=== PATIENT | male | born 1940 | race Caucasian/White ===

== ENCOUNTER 2017-02-22 04:50 | Inpatient (IN) | payer OTHER ==
[~2017-02-22] VITALS: Ht 162.6 cm; Wt 86.4 kg
[~2017-02-22 04:50] MED LIST: CYCLOBENZAPRINE10 M1 PO; HYDRODIURIL 112.5 M1 PO; PERCOCET 5-3251 EACH PO; PROAIR HFA0.09 MG/Ac PO
--- NOTE | 2017-02-22 05:04 | NUR ---
PT TO ED FOR SUDDEN ONSET CHEST PAIN THAT WOKE HIM FROM SLEEP AT 0130. CP IS MIDSTERNAL, NON-RADIATING "IT WAS VERY TIGHT AND HARD TO BREATHE BUT I HAVE COPD." PT TOOK 325 ASA WHEN PAIN WOKE HIM FROM SLEEP. PT DENIES PAIN AT THIS TIME AND "ITS ALWAYS HARD TO BREATHE BECAUSE OF COPD." PT REPORTS HE HAS HAD EPISODES OF PAIN LIKE THIS FOR 3 DAYS IN A ROW.
--- NOTE | 2017-02-22 05:12 | NUR ---
EKG DONE BY STEVE COOPER, AND SHOWN TO DR. SAUCEDO.
--- NOTE | 2017-02-22 05:18 | ED CARDIAC/CP/PALPITATIONS ---
See Addendum History of Present Illness General Chief Complaint: Chest Pain Stated Complaint: CHEST PAIN Source: patient, family Exam Limitations: no limitations Vital Signs & Intake/Output Vital Signs & Intake/Output Vital Signs Date Time Temp Pulse Resp B/P Pulse O2 O2 Flow FiO2 Ox Delivery Rate 02/22 0707 74 142/93 02/22 0656 84 16 142/93 93 Room Air 02/22 0515 Room Air 02/22 0507 97.2 90 22 139/98 96 Room Air Allergies Coded Allergies: No Known Allergies (02/22/17) Reconcile Medications Albuterol Sulfate (Proair Hfa) 0.09 MG/Actuation KILO 0.9 PO PRN PRN SOB ( Reported) Cyclobenzaprine HCl 10 MG TABLET 1 TAB PO TID PRN muscle spasm Hydrochlorothiazide (Hydrodiuril 12.5 MG Tab) 12.5 MG CAPSULE 12.5 MG PO DAILY HYPERTENSION (Reported) Oxycodone HCl/Acetaminophen (Percocet 5-325 MG Tablet) 1 EACH TABLET 1 TAB PO TID PRN pain ten tabs...[id number] Triage Note: PT TO ED FOR SUDDEN ONSET CHEST PAIN THAT WOKE HIM FROM SLEEP AT 0130. CP IS MIDSTERNAL, NON-RADIATING "IT WAS VERY TIGHT AND HARD TO BREATHE BUT I HAVE COPD." PT TOOK 325 ASA WHEN PAIN WOKE HIM FROM SLEEP. PT DENIES PAIN AT THIS TIME AND "ITS ALWAYS HARD TO BREATHE BECAUSE OF COPD." PT REPORTS HE HAS HAD EPISODES OF PAIN LIKE THIS FOR 3 DAYS IN A ROW. Triage Nurses Notes Reviewed? yes Onset: Gradual Duration: day(s):, waxing and waning Timing: recent history Quality/Severity: moderate Location: central Radiation: shoulders Activities at Onset: none Prior Chest Pain/Card Workup: no prior chest pain Modifying Factors: Improves With: rest. Associated Symptoms: diaphoresis, dizziness HPI: 77yo gentleman with a history of COPD, presents with 3 day history of intermittent chest pain. He states that the pain would be a 7 or 8 out of 10. The episodes would last for several minutes and radiate down both of his arms. The chest pain is associated with diaphoresis and mild dizziness. He had these episodes on and Friday. And then, this morning he had the episode again and felt, "the pain was so bad, I needed to get it checked out." He notes that he presently has no chest pain, shortness of breath nausea vomiting diarrhea wheezing fever or chills. Past History Travel History Traveled to [place] past 21 day No Medical History Any Pertinent Medical History? see below for history Neurological: NONE EENT: NONE Cardiovascular: hypertension Respiratory: COPD Gastrointestinal: NONE Hepatic: NONE Renal: NONE Musculoskeletal: NONE Psychiatric: NONE Endocrine: NONE Blood Disorders: NONE Cancer(s): NONE Surgical History Surgical History: none Psychosocial History What is your primary language [place] Tobacco Use: Current Daily Use Daily Tobacco Use Amount/Type: => 5 Cigarettes daily ETOH Use: denies use Illicit Drug Use: denies illicit drug use Family History Hx Contributory? No Review of Systems Review of Systems Constitutional: Reports: no symptoms. EENTM: Reports: no symptoms. Respiratory: Reports: no symptoms. Cardiovascular: Reports: no symptoms. GI: Reports: no symptoms. Genitourinary: Reports: no symptoms. Musculoskeletal: Reports: no symptoms. Skin: Reports: no symptoms. Neurological/Psychological: Reports: no symptoms. Hematologic/Endocrine: Reports: no symptoms. Immunologic/Allergic: Reports: no symptoms. All Other Systems: Reviewed and Negative Physical Exam Physical Exam General Appearance: well developed/nourished, mild distress Head: atraumatic, normal appearance Eyes: Bilateral: normal appearance. Ears, Nose, Throat: normal pharynx, normal ENT inspection Neck: normal inspection, supple, full range of motion Respiratory: normal breath sounds, chest non-tender, no respiratory distress, quiet respiration, lungs clear Cardiovascular: regular rate/rhythm Gastrointestinal: normal bowel sounds, soft, non-tender, no organomegaly Back: normal inspection, normal range of motion Extremities: normal inspection Neurologic/Psych: no motor/sensory deficits, awake, alert, oriented x 3 Skin: intact, normal color, warm/dry Core Measures ACS in differential dx? No Severe Sepsis Present: No Septic Shock Present: No Progress Differential Diagnosis: AMI Plan of Care: Orders Procedure Date/time Status PARTIAL THROMBOPLASTIN TIME 02/22 1309 Active Patient Data 02/22 0703 Active Admit to inpatient 02/22 07 Active Add-on Test (ER Only) 02/22 0523 Active EKG 02/22 0521 Active D-DIMER 02/22 05 Complete TROPONIN LEVEL 02/22 0454 Complete PARTIAL THROMBOPLASTIN TIME 04/08 0454 Complete PROTHROMBIN TIME 02/22 454 Complete COMPREHENSIVE METABOLIC PANEL 02/22 454 Complete CBC WITHOUT DIFFERENTIAL 02/22 454 Complete B-TYPE NATRIURETIC PEP (BNP) 02/22 454 Complete EKG 02/22 451 Active Laboratory Tests 02/22/17 0511: Anion Gap 12, Estimated GFR > 60, BUN/Creatinine Ratio 22.7, Glucose 233 H, Calcium 10.0, Total Bilirubin 0.4, AST 18, ALT 33, Alkaline Phosphatase 108, Troponin I 0.43 *H, Ars-F-Zntqoygcpic Pept 1700 H, Total Protein 6.7, Albumin 3.9, Globulin 2.8, Albumin/Globulin Ratio 1.4, PT 10.6, INR 1.01, APTT 32, D- Dimer 279 H, CBC w Diff NO MAN DIFF REQ, RBC 5.50, MCV 91.4, MCH 30.6, RDW 15.0 H, MPV 9.0, Gran % 74.4, Lymphocytes % 15.2 L, Monocytes % 8.2, Eosinophils % 1.8, Basophils % 0.4, Absolute Granulocytes 10.2 H, Absolute Lymphocytes 2.1, Absolute Monocytes 1.1 H, Absolute Eosinophils 0.3, Absolute Basophils 0.1, PUBS MCHC 33.5 Diagnostic Imaging: Viewed by Me: Radiology Read. Discussed w/RAD: Radiology Read. CXR Impression: no acute abnormality, no infiltrates, normal size heart, normal mediastinum Initial ED EKG: ST SEG DEPRESSIONS in lateral leads Comments: PATIENT: CHILANGO PEÑALOZA PRESENT AGE: 77 PATIENT ACCOUNT NO: [id number] : 41 LOCATION: [facility] ORDERING PHYSICIAN: ISMAEL SAUCEDO MD SERVICE DATE: 02/22/17 EXAM TYPE: RAD - XRY-PORTABLE CHEST XRAY EXAMINATION: XR PORTABLE CHEST CLINICAL INFORMATION: Chest pain COMPARISON: Chest x-ray 03/18/2014 TECHNIQUE: Portable AP portable view of the chest was obtained. 5:29 AM FINDINGS: No significant abnormality is noted involving the heart, lungs, mediastinum, bony thorax or soft tissues. IMPRESSION: No acute abnormality of the chest. DICTATED BY: PAPO GARZON MD DATE/TIME DICTATED:02/22/17603 UNDERWEAR FINISHER:SISI DATE/TIME TRANSCRIBED:04/08/17 / 0604 CONFIDENTIAL, DO NOT COPY WITHOUT APPROPRIATE AUTHORIZATION. <Electronically signed in Other Vendor System> SIGNED BY: PAPO GARZON MD 02/22/17 0608 Departure Departure Disposition: HOME OR SELF CARE Condition: Stable Clinical Impression Primary Impression: Chest pain Referrals: ZENON LEON,LYSSA Gomez (PCP/Family) Departure Forms: Customer Survey General Discharge Information Admission Note Spoke With: DEBBI LEON,REJI Documentation of Exam: Documentation of any treatments & extenuating circumstances including Concerns Regarding Discharge (functional status, medication knowledge or non-compliance, living conditions, etc.) that warrant an admission rather than observation: pt with positive troponin, slight st seg depressions in lateral leads. He has been chest pain free throughout ED stay... pt merits heparin gtt, aspirin, bblockers, and icu admission. Dr. Layne to consult. Critical Care Note Critical Care Note Critical Care Time: non-applicable
[2017-02-22 05:36] LABS: ABSOLUTE BASOPHIL COUNT 0.1 /CUMM (0.0-0.2); ABSOLUTE EOSINOPHIL COUNT 0.3 /CUMM (0.0-0.7); ABSOLUTE GRANULOCYTE CT 10.2 /CUMM (1.4-6.5); ABSOLUTE LYMPH COUNT 2.1 /CUMM (1.2-3.4); ABSOLUTE MONOCYTE COUNT 1.1 /CUMM (0.10-0.60); BASOPHIL % 0.4 % (0.0-2.0); EOSINOPHIL % 1.8 % (0-5); GRANULOCYTE % 74.4 % (42.2-75.2); HEMATOCRIT 50.3 % (42-52); MEAN CORPUSCULAR HGB 30.6 PG (27.0-31.0); MEAN CORPUSCULAR HGB CONC 33.5 G/DL (33.0-37.0); MEAN CORPUSCULAR VOLUME 91.4 FL (80.0-94.0); PLATELET COUNT 258 /CUMM (130-400); WHITE BLOOD CELL COUNT 13.6 /CUMM (4.8-10.8)
--- NOTE | 2017-02-22 05:42 | NUR ---
PT MEDICATED WITH ASPIRIN PER EMAR.
[2017-02-22 05:59] LABS: PT 10.6 SEC (9.4-12.5); PTT 32 SEC (25-37)
--- NOTE | 2017-02-22 06:08 | RADIOLOGY REPORT ---
EXAMINATION: XR PORTABLE CHEST CLINICAL INFORMATION: Chest pain COMPARISON: Chest x-ray 03/18/2014 TECHNIQUE: Portable AP portable view of the chest was obtained. 5:29 AM FINDINGS: No significant abnormality is noted involving the heart, lungs, mediastinum, bony thorax or soft tissues. IMPRESSION: No acute abnormality of the chest.
--- NOTE | 2017-02-22 06:12 | NUR ---
CRITICAL TEST RESULTS [id number] CHILANGO PEÑALOZA 77 M TESTS AND RESULTS: TROPONIN 0.43 Results received and read back by: JERRY FERRARO Results received date and time: 02/22/17 0612 The following provider was notified of the results, and read the results back: MD SAUCEDO Notified date and time: 02/22/17 at 0612
--- NOTE | 2017-02-22 07:07 | History & Physical ---
TOMMY LEON,[facility] 02/22/17 0707: General Information and HPI MD Statement: I have seen and personally examined CHILANGO PEÑALOZA and documented this H&P. The patient is a 77 year old M who presented with a patient stated chief complaint of [chest pain]. Source of Information: patient Exam Limitations: no limitations History of Present Illness: Patient is a 77 year old male with PMH on COPD (not on home O2), HTN, GERD, who came to the ED due to 3 episodes of chest pain since last . On patient started to feel chest tightness in the middle on the chest when he was carrying some garbage outside the house, he also felt he could not breathe. pain was 7/10 dull in nature and lasted for half an hour; it went away by itself. Yesterday after on the patient had another episode of a similar chest pressure in the middle, this time at rest, again dull in nature and resolved by itself. Lastly, the patient woke up from sleep at around 1 am to go to the bathroom and on his way he experienced midsternal chest tightness with SOB, 6/10 with radiation to both arm, he took one aspirin and decided to come to the hospital. this episode lasted 2-3 hours till 4:30 that he arrived to the ED. He has not experienced any pain since then. Denies similar symptoms or any heart attacks in the past, denies diaphoresis, dizziness, LOC. reports SOB at baseline but not worse with chest pain. reports chronic headache since childhood. denies leg swelling. denies fever chills, reports chronic coughs with phlegm, smokes 1-2 packs/day for 60 years. He follows up regularly with PCP (last time this past Friday for check up). Also follows with Dr. Rene for COPD, but no cardiology. Last ECHO was done >30 years ago after he had an episode of a blackout. Allergies/Medications Allergies: Coded Allergies: No Known Allergies (02/22/17) Past History Travel History Traveled to [place] past 21 day No Medical History Neurological: NONE EENT: NONE Cardiovascular: hypertension Respiratory: COPD Gastrointestinal: GERD Hepatic: NONE Renal: NONE Musculoskeletal: NONE Psychiatric: NONE Endocrine: NONE Blood Disorders: NONE Cancer(s): NONE Surgical History Surgical History: none Past Family/Social History Family History Relations & Conditions if any Relation not specified for: Unknown family medical history Psychosocial History Smoking Status: Current Some Day Smoker (1-2 packs/day for 60 years) ETOH Use: denies use Illicit Drug Use: denies illicit drug use Functional Ability Ambulation: independent Review of Systems Review of Systems Constitutional: Denies: chills, fever, malaise, weakness, unexplained weight loss. EENTM: Reports: no symptoms. Cardiovascular: Reports: chest pain (currently pain free). Denies: edema, palpitations, peripheral edema, syncope. Respiratory: Reports: cough, short of breath. Denies: hemoptysis, orthopnea, sputum production, stridor, wheezing. GI: Reports: no symptoms. Genitourinary: Reports: no symptoms. Musculoskeletal: Reports: no symptoms. Skin: Reports: no symptoms. Neurological/Psychological: Reports: no symptoms. Exam & Diagnostic Data Last 24 Hrs of Vital Signs/I&O Vital Signs Date Time Temp Pulse Resp B/P Pulse O2 O2 Flow FiO2 Ox Delivery Rate 02/22 0830 98.1 74 20 130/90 96 Room Air Room Air 02/22 0805 97.1 77 18 154/89 93 Room Air 02/22 0707 74 142/93 02/22 0656 84 16 142/93 93 Room Air 02/22 0515 Room Air 02/22 0507 97.2 90 22 139/98 96 Room Air Intake & Output 02/22 1600 02/22 0800 02/22 0000 Intake Total Output Total 500 Balance -500 Output, Urine 500 Patient 87.997 kg Weight Physical Exam General Appearance Alert, Oriented X3, Cooperative, No Acute Distress Skin No Significant Lesion HEENT Atraumatic, EOMI, Mucous Membr. moist/pink Neck Supple, No JVD Cardiovascular Regular Rate, Normal S1, Normal S2, No Murmurs Lungs Normal Air Movement, rhonchi bilateral upper lungs, decreased breath sounds in both lower lungs Abdomen Soft, No Tenderness Neurological Normal Speech, Normal Tone Extremities 1+ b/l pitting edema Vascular Pulses Symmetrical Last 24 Hrs of Labs/[place]: Laboratory Tests 02/22/17 0511: Anion Gap 12, Estimated GFR > 60, BUN/Creatinine Ratio 22.7, Glucose 233 H, Calcium 10.0, Total Bilirubin 0.4, AST 18, ALT 33, Alkaline Phosphatase 108, Troponin I 0.43 *H, Flv-M-Yvruhkflbij Pept 1700 H, Total Protein 6.7, Albumin 3.9, Globulin 2.8, Albumin/Globulin Ratio 1.4, PT 10.6, INR 1.01, APTT 32, D- Dimer 279 H, CBC w Diff NO MAN DIFF REQ, RBC 5.50, MCV 91.4, MCH 30.6, RDW 15.0 H, MPV 9.0, Gran % 74.4, Lymphocytes % 15.2 L, Monocytes % 8.2, Eosinophils % 1.8, Basophils % 0.4, Absolute Granulocytes 10.2 H, Absolute Lymphocytes 2.1, Absolute Monocytes 1.1 H, Absolute Eosinophils 0.3, Absolute Basophils 0.1, PUBS MCHC 33.5 Microbiology 02/22 814 UPPER RESP: Surveillance Culture - ORD 02/22 814 GI: Surveillance Culture - ORD Diagnostic Data EKG Results EKG: normal sinus rhythm, rate of 82, SC interval 192, Qtc 472, there is ST segment depressions in inf and lateral leads (II, III, AVF, V3, V4) CXR Results SERVICE DATE: 02/22/17 EXAM TYPE: RAD - XRY-PORTABLE CHEST XRAY EXAMINATION: XR PORTABLE CHEST CLINICAL INFORMATION: Chest pain COMPARISON: Chest x-ray 03/18/2014 TECHNIQUE: Portable AP portable view of the chest was obtained. 5:29 AM FINDINGS: No significant abnormality is noted involving the heart, lungs, mediastinum, bony thorax or soft tissues. IMPRESSION: No acute abnormality of the chest. Assessment/Plan Assessment: Patient is a 77 year old male with PMH on COPD (not on home O2), HTN, GERD, who came to the ED due to 3 episodes of chest pain since last . Patient is found to have elevated troponin on 0.43 and EKG changes consisting of ST depressions in inf and lateral leads (II, III, AVF, V3, V4), he also has proBNP elevated to 1700 and D-dimer of 279. CXR unremarkable, saturating in RA, not in SOB. Patient is admitted to the ICU due to the acute EKG changes and elevated troponin and is started on IV heparin. Problem list and plan: NSTEMI 3 episodes of angina, at rest or on exertion, with elevated troponin and ST depression ProBNP elevated with 1+ pitting edema * started IV heparin * trend troponin and EKG * SL NG for chest pain, no murmur suspicious for was heard * monitor in the ICU * cardiology consult in am * aspirin, statin, beta humza * follow up on lipid panel * ECHOcardiogram for possible CHF * consider stress test or cardiac catheterization COPD - stable stable, reports chronic coughs and SOB mostly on exertion. D-dimer elevated 279, baseline is unknown, however patient denies worsening SOB, is not tachycardic and is saturating at 97% in RA * continue home medications: Spiriva, Symbicort, Proair HTN Per the patient has borderline HTN, was taking HCTZ, recently PCP DCd it and started him on losartan 100 mg daily * added metoprolol for cardioprotective effects * continued losartan at a lower dose 50 mg daily to prevent hypotension GERD * Omeprazole 40 daily Diet * NPO for possible cath Pain * mils pain pathway with tylenol DVT px * IV heparin FULL code As Ranked By This Provider Problem List: 1. Chest pain 2. COPD (chronic obstructive pulmonary disease) 3. GERD (gastroesophageal reflux disease) Core Measures/Miscellaneous Acute Coronary Syndrome ACS Diagnosis: Yes ASA W/I 24hr of admit Yes Beta-Humza W/I 24hrs Yes LDL assessed W/I 24 hrs Yes Currently on Statin Yes Cerebrovascular Accident CVA/TIA Diagnosis: No Congestive Heart Failure CHF Diagnosis: No Venous Thromboembolism VTE Risk Factors: Acute medical illness, Age > 40 No [facility] VTE prophylaxis d/t: No contraindications No VTE Pharm Prophylaxis d/t: No contraindications VTE Diagnosis: No VTE Type: NONE VTE Confirmed by (Test): NONE Severe Sepsis Severe Sepsis Present: No Septic Shock Septic Shock Present: No Miscellaneous Documentation Attending Case Discussed With: DEBBI LEON,REJI Primary Care Physician: LYSSA YARBROUGH MD Patient sees these Specialists Dr. Rene Level of Patient Care: Critical Care (CRI) RAFIA BEAN MD 02/22/17 0838: General Information and HPI Allergies/Medications Home Med list Albuterol Sulfate (Proair Hfa) 0.09 MG/Actuation KILO 0.9 PO PRN PRN SOB ( Reported) Aspirin (Aspirin*) 325 MG TABLET 1 TAB PO DAILY headache (Reported) Budesonide/Formoterol Fumarate (Symbicort 160-4.5 Mcg Inhaler) 160 MCG-4.5 MCG/ ACTUATION HFA.AER.AD 2 PUF INH BID COPD (Reported) Losartan (Cozaar) 100 MG TABLET 1 TAB PO DAILY HTN (Reported) Tiotropium [place] (Spiriva) 18 MCG CAP.W.DEV 1 CAP INH DAILY COPD (Reported) Resident Review Statement Resident Statement: examined this patient, discussed with journalism internship, agreed with journalism internship, discussed with family, reviewed EMR data (avail), reviewed images, amended to note Other Findings: This is 77-year-old old obese male with past medical history of COPD not on home O2 or prednisone, hypertension, current smoker with more than 17-pxbc-wvun smoking history and GERD presented from home with chief complaint of 3 days history of episodic intermittent substernal pressure-like chest pain. Last patient while shoveling dirt outside his house there'll up sudden onset shortness of breath associated with midsternal chest pain pressure-like in nature which lasted for about 30 minutes and went away spontaneously without any treatment. Yesterday afternoon began while watching TV patient there will up midsternal pressure-like chest pain radiating to his both arms which lasted for about an hour and subsided after taking aspirin. This morning patient woke up around 1:30 AM to go to the bathroom and while walking to the bathroom all of a sudden he started having similar midsternal pressure-like chest pain 6 x 10 in severity associated with shortness of breath with his pain radiating down to bilateral shoulders associated with cold sweats. This time his symptoms lasted longer and he took regular aspirin without significant symptom improvement and decided to come to ER for further evaluation of this recurrent chest pain. In ER patient received another regular dose of aspirin after which his symptoms resolved. In total his chest pain lasted for about 3 hours. On evaluation patient denied any chest pain, shortness of breath, palpitation, dizziness, lightheadedness, abdominal pain, nausea, vomiting, diarrhea or urinary symptoms. His vitals on admission were T 97.2, HR 90, RR 22, BP 139/98, O2 sat 96% on room air. On physical exam patient noted alert oriented 3 in no acute distress, HEENT PERRLA EOMI, neck supple without JVD, heart S1-S2 normal without murmur, lungs noted occasional wheezing and faint basilar crackles, abdomen soft nontender nondistended preserved bowel sounds, no focal gross neuro deficit, 1+ pitting pedal edema right more than left lower extremity. Labs were significant for mild leukocytosis of 13,600, BUN 25, creatinine 1.1, blood glucose 233, troponin 0.43, proBNP 1700 and d-dimer of 279 Chest x-ray noted unremarkable EKG revealed normal sinus rhythm with inferolateral ST depression and QTC of 475 Home medication includes Spiriva, Pro Air, Symbicort, losartan, regular aspirin Assessment and plan: This is 77 year obese male with past medical history of hypertension, COPD, over 47-lkbr-[id number] smoking history presented with 3 days history of intermittent midsternal chest pain associated with dyspnea and diaphoresis found to have inferolateral lead ST depression on EKG and elevated troponin of 0.43 suggestive of underlying coronary artery disease. 1. NSTEMI - Admit to ICU - Serial troponin and EKG, first troponin noted elevated 2.[address] depression EKG changes - Echocardiogram to evaluate for motion abnormality - Start metoprolol 6.25 twice a day, may go up to 12.5 twice a day - Start Lipitor and aspirin - Continue losartan - Cardiology consult in a.m. - Check lipid panel - Keep patient nothing by mouth for possible requirement of cardiac cath if patient's troponin increases or develop severe chest discomfort - Continue IV heparin drip - NTG as needed for chest pain 2. Hypertension - Continue losartan and start beta humza 3. COPD - TRC treatment - Continues Spiriva, Symbicort 4. GERD - Started Prilosec 5. DVT prophylaxis -IV heparin 6. Full code DEBBI LEON,[facility] 02/22/17 1145: Attending MD Review Statement Attending Statement Attending MD Statement: examined this patient, discuss w/resident/PA/SUPERVISOR RICE MILLING, agreed w/resident/PA/SUPERVISOR RICE MILLING, discussed with family, reviewed EMR data (avail), discussed with nursing, reviewed images, amended to note Attending Assessment/Plan: 77 y/o M with pmh sig for COPD (not on home O2), HTN, GERD presented to the emergency room with complaint of chest pain. This was his third episode of chest pain. First episode was 2 days ago when he was doing some outside work. That pain lasted for a few minutes to half an hour and then got settled. The next day he was sitting in was playing on the computer when he felt the chest pain. Similarly that pain also lasted for a few minutes to half an hour in but resolved by itself. Last night he was sleeping and had to get up in the middle of the night would've the bathroom. He developed the chest pain. He took his aspirin that improved the chest pain but did not completely resolve it therefore around 4:00 this morning he woke up his and was brought into the emergency room. In the emergency room his EKG showed ST depressions in inferolateral leads and he had a positive troponin. By the time I saw the patient he was already moved to the ICU. His chest pain had been resolved. He did complain of some diaphoresis but denied any nausea, vomiting or dizziness. He has some baseline dyspnea on exertion secondary to having COPD but he is not oxygen dependent. He does use his inhalers and follows with Dr. Rene. Vital Signs Date Time Temp Pulse Resp B/P Pulse O2 O2 Flow FiO2 Ox Delivery Rate 02/22 0920 Room Air Room Air 02/22 830 97 Room Air Room Air 02/22 0830 98.1 74 20 130/90 96 Room Air Room Air 02/22 0805 97.1 77 18 154/89 93 Room Air 02/22 0707 74 142/93 02/22 0656 84 16 142/93 93 Room Air 02/22 0515 Room Air 02/22 0507 97.2 90 22 139/98 96 Room Air on exam; aox3, nad. cv; s1,s2, rrr resp; clear abd; soft, nt, bs+ ext; no edema Laboratory Tests 02/22 02/22 1010 0511 Chemistry Sodium (137 - 145 mmol/L) 138 Potassium (3.5 - 5.1 mmol/L) 4.4 Chloride (98 - 107 mmol/L) 104 Carbon Dioxide (22 - 30 mmol/L) 22 Anion Gap (5 - 16) 12 BUN (9 - 20 mg/dL) 25 H Creatinine (0.7 - 1.2 mg/dL) 1.1 Estimated GFR (>60 ml/min) > 60 BUN/Creatinine Ratio (7 - 25 %) 22.7 Glucose (65 - 99 mg/dL) 233 H Calcium (8.4 - 10.2 mg/dL) 10.0 Total Bilirubin (0.2 - 1.3 mg/dL) 0.4 AST (17 - 59 U/L) 18 ALT (21 - 72 U/L) 33 Alkaline Phosphatase (< 127 U/L) 108 Troponin I (<0.11 ng/ml) 1.05 *H 0.43 *H [id number] Pept (<125 pg/mL) 1700 H Total Protein (6.3 - 8.2 g/dL) 6.7 Albumin (3.5 - 5.0 g/dL) 3.9 Globulin (1.9 - 4.2 gm/dL) 2.8 Albumin/Globulin Ratio (1.1 - 2.2 %) 1.4 Triglycerides (<150 mg/dL) 178 H Cholesterol (< 200 MG/DL) 174 LDL Cholesterol, Calc (65 - 129 mg/dL) 96 HDL Cholesterol (40 - 60 mg/dL) 43 Cholesterol/HDL Ratio (0.00 - 4.88 %) 4 Coagulation PT (9.4 - 12.5 SEC) 10.6 INR (0.90 - 1.17) 1.01 APTT (25 - 37 SEC) 32 D-Dimer (70 - 232 ng/ml) 279 H Hematology CBC w Diff NO MAN DIFF REQ WBC (4.8 - 10.8 /CUMM) 13.6 H RBC (4.70 - 6.10 /CUMM) 5.50 Hgb (14.0 - 18.0 G/DL) 16.9 Hct (42 - 52 %) 50.3 MCV (80.0 - 94.0 FL) 91.4 MCH (27.0 - 31.0 PG) 30.6 RDW (11.5 - 14.5 %) 15.0 H Plt Count (130 - 400 /CUMM) 258 MPV (7.4 - 10.4 FL) 9.0 Gran % (42.2 - 75.2 %) 74.4 Lymphocytes % (20.5 - 51.1 %) 15.2 L Monocytes % (1.7 - 9.3 %) 8.2 Eosinophils % (0 - 5 %) 1.8 Basophils % (0.0 - 2.0 %) 0.4 Absolute Granulocytes (1.4 - 6.5 /CUMM) 10.2 H Absolute Lymphocytes (1.2 - 3.4 /CUMM) 2.1 Absolute Monocytes (0.10 - 0.60 /CUMM) 1.1 H Absolute Eosinophils (0.0 - 0.7 /CUMM) 0.3 Absolute Basophils (0.0 - 0.2 /CUMM) 0.1 PUBS MCHC (33.0 - 37.0 G/DL) 33.5 EKG>> sinus rythm with St depressions in infero lat leads. CXR>>> normal. A/P; 77 y/o M with pmh sig for COPD (not on home O2), HTN, GERD admitted to ICU with NSTEMI. First 2 sets of troponins are positive. Patient has been started on aspirin, beta humza, statin, ARB as well as IV heparin. Cardiology consult will be obtained. Please obtain echocardiogram. Dr. Layne is aware. We will follow if he recommends cardiac cath versus conservative management. Continue his inhalers. DVT px:patient on IV heparin. CODE STATUS: DNR/I.
--- NOTE | 2017-02-22 07:21 | NUR ---
HOUSE STAFF AT BEDSIDE
[2017-02-22] MEDS ORDERED: SPIRIVA18 MCG INH (07:36)
[2017-02-22] MEDS ORDERED: SYMBICORT 16010.2 GM INH (07:37)
[2017-02-22] MEDS ORDERED: COZAAR100 M1 PO (07:38)
--- NOTE | 2017-02-22 07:56 | NUR ---
PT TO ROOM 105
--- NOTE | 2017-02-22 08:04 | NUR ---
REPORT RECEIVED. MED HOUSESTAFF IN TO EXAMINE PT. ALERT,ORIENTED. DENIES PAIN,SOB. IV HEPARIN AT 20 ML/HR. 02 SAT 93% RA. STATES HX COPD. DENIES SOB.
--- NOTE | 2017-02-22 08:25 | NUR ---
TRANSPORTED TO ICU ROOM 1O5. STABLE ON TRANSFER.
[2017-02-22 08:30] VITALS: BP 130/90
[2017-02-22] MEDS ORDERED: ASPIRIN325 M2 PO (08:50)
--- NOTE | 2017-02-22 09:00 | NUR ---
Received patient at 0825 from the ER. Settled in the room and oriented to the floor. Alert and oriented x3. Denies chest pain. NSR on the monitor 70s, [id number]. Heparin gtt running at 20 mls/hr or 11.4 units/kg/hr per ACS protocol. 95-98% on room air w/ scattered exp wheezes to right lung base and diminished throughout. No distress noted. Abdomen soft/+BS no pain. To void in urinal. SKin intact. Vitals stable. Patient given comfort and emotional reassurance.
--- NOTE | 2017-02-22 11:57 | Admission Certification ---
Admission Certification Certification Statement - As attending physician, I certify that at the time of - admission, based on clinical presentation, severity of - symptoms, need for further diagnostic testing and - therapeutic interventions, and risk of adverse outcomes - without in-hospital treatment, in my clinical assessment, - this patient requires an acute hospital stay for a minimum - of two nights or longer. I have also considered psychsocial - factors such as support system, advanced age, financial - issues, cognitive issues, and failed out-patient treatments, - past re-admission history, safety of patient, and lack of - compliance as applicable. Specific rationale supporting this admission is: Patient admitted with NSTEMI, needs IV heparin and other cardiac medications.
--- NOTE | 2017-02-22 12:55 | Cons- Cardiology ---
General Information and HPI Consulting Request Date of Consult: 02/22/17 Requested By: REJI WERNER MD Reason for Consult: Acute coronary syndrome. Source of Information: patient, old records Exam Limitations: no limitations History of Present Illness: Mr. Ezio Rogers is a 77-year-old obese male with a long-standing history of heavy tobacco use (one and a half packs per day 60), COPD, hypertension and "borderline" diabetes mellitus who presented to the ED from home following the sudden onset of substernal chest discomfort, shortness of breath, and diaphoresis after getting up to use the bathroom at around 1:30 AM today (2016). He denies any other associated symptoms or radiation of the discomfort which she described as moderately severe (6-8/10). He took one 325 mg aspirin and notified his of his symptoms when they did not cora and she drove him to the hospital. He experienced a similar, shorter lasting, but more intense episodes (8/10) on (02/20/2017) while he was using a shovel to fill a hole in his yard. This episode was also associated with shortness of breath and diaphoresis, but resolved after he rested for approximately 30 minutes. On Friday (02/21/2017), he had another episode at around 4:30 PM while he was watching television. This too was associated with shortness of breath and diaphoresis, was milder (6/10) and also resolved after approximately 30 minutes. Allergies/Medications Allergies: Coded Allergies: No Known Allergies (02/22/17) Home Med List: Albuterol Sulfate (Proair Hfa) 0.09 MG/Actuation KILO 0.9 PO PRN PRN SOB ( Reported) Aspirin (Aspirin*) 325 MG TABLET 1 TAB PO DAILY headache (Reported) Budesonide/Formoterol Fumarate (Symbicort 160-4.5 Mcg Inhaler) 160 MCG-4.5 MCG/ ACTUATION HFA.AER.AD 2 PUF INH BID COPD (Reported) Losartan (Cozaar) 100 MG TABLET 1 TAB PO DAILY HTN (Reported) Tiotropium [place] (Spiriva) 18 MCG CAP.W.DEV 1 CAP INH DAILY COPD (Reported) Review of Systems Review of Systems: A 14 point system review was obtained and was noncontributory, other than as above. 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 Home Services at Home: None Smoking Status: Current Some Day Smoker (1-2 packs/day for 60 years) ETOH Use: denies use Illicit Drug Use: denies illicit drug use Functional Ability Ambulation: independent Exam & Diagnostic Data Vital Signs and I&O Vital Signs Date Time Temp Pulse Resp B/P Pulse O2 O2 Flow FiO2 Ox Delivery Rate 02/22 0920 Room Air Room Air 02/22 0830 97 Room Air Room Air 02/22 0830 98.1 74 20 130/90 96 Room Air Room Air 02/22 0805 97.1 77 18 154/89 93 Room Air 02/22 0707 74 142/93 02/22 0656 84 16 142/93 93 Room Air 02/22 0515 Room Air 02/22 0507 97.2 90 22 139/98 96 Room Air Intake & Output 02/22 1600 02/22 0802/22 0000 02/21 1600 02/21 0800 02/21 0000 Intake Total Output Total 500 Balance -500 Output, Urine 500 Patient 194 lb 194 lb Weight Physical Exam: Well-developed, overweight elderly male in no acute distress. Vital signs: See above. HEENT: Normocephalic, atraumatic, EOMI, slightly dry mucous membranes. Neck: No JVD, no bruits. Lungs: Decreased breath sounds bilaterally and expiratory wheezing. Heart: S1, S2 (both distant) with no murmur, gallop, or rub appreciated. PMI fifth ICS at [facility]. Abdomen: Soft, nontender, positive bowel sounds. Extremities: No edema. Labs/Haroon Results: Laboratory Tests 02/22 02/22 1010 0511 Chemistry Sodium (137 - 145 mmol/L) 138 Potassium (3.5 - 5.1 mmol/L) 4.4 Chloride (98 - 107 mmol/L) 104 Carbon Dioxide (22 - 30 mmol/L) 22 Anion Gap (5 - 16) 12 BUN (9 - 20 mg/dL) 25 H Creatinine (0.7 - 1.2 mg/dL) 1.1 Estimated GFR (>60 ml/min) > 60 BUN/Creatinine Ratio (7 - 25 %) 22.7 Glucose (65 - 99 mg/dL) 233 H Calcium (8.4 - 10.2 mg/dL) 10.0 Total Bilirubin (0.2 - 1.3 mg/dL) 0.4 AST (17 - 59 U/L) 18 ALT (21 - 72 U/L) 33 Alkaline Phosphatase (< 127 U/L) 108 Troponin I (<0.11 ng/ml) 1.05 *H 0.43 *H [id number] Pept (<125 pg/mL) 1700 H Total Protein (6.3 - 8.2 g/dL) 6.7 Albumin (3.5 - 5.0 g/dL) 3.9 Globulin (1.9 - 4.2 gm/dL) 2.8 Albumin/Globulin Ratio (1.1 - 2.2 %) 1.4 Triglycerides (<150 mg/dL) 178 H Cholesterol (< 200 MG/DL) 174 LDL Cholesterol, Calc (65 - 129 mg/dL) 96 HDL Cholesterol (40 - 60 mg/dL) 43 Cholesterol/HDL Ratio (0.00 - 4.88 %) 4 Coagulation PT (9.4 - 12.5 SEC) 10.6 INR (0.90 - 1.17) 1.01 APTT (25 - 37 SEC) 32 D-Dimer (70 - 232 ng/ml) 279 H Hematology CBC w Diff NO MAN DIFF REQ WBC (4.8 - 10.8 /CUMM) 13.6 H RBC (4.70 - 6.10 /CUMM) 5.50 Hgb (14.0 - 18.0 G/DL) 16.9 Hct (42 - 52 %) 50.3 MCV (80.0 - 94.0 FL) 91.4 MCH (27.0 - 31.0 PG) 30.6 RDW (11.5 - 14.5 %) 15.0 H Plt Count (130 - 400 /CUMM) 258 MPV (7.4 - 10.4 FL) 9.0 Gran % (42.2 - 75.2 %) 74.4 Lymphocytes % (20.5 - 51.1 %) 15.2 L Monocytes % (1.7 - 9.3 %) 8.2 Eosinophils % (0 - 5 %) 1.8 Basophils % (0.0 - 2.0 %) 0.4 Absolute Granulocytes (1.4 - 6.5 /CUMM) 10.2 H Absolute Lymphocytes (1.2 - 3.4 /CUMM) 2.1 Absolute Monocytes (0.10 - 0.60 /CUMM) 1.1 H Absolute Eosinophils (0.0 - 0.7 /CUMM) 0.3 Absolute Basophils (0.0 - 0.2 /CUMM) 0.1 PUBS MCHC (33.0 - 37.0 G/DL) 33.5 Diagnostic Data EKG Results (02/22/2017) sinus rhythm, possible left atrial abnormality, and diffuse ST segment depression consistent with ischemia. CXR Results (02/22/2017) no acute cardiopulmonary process. Assessment/Plan Assessment/Plan Mr. Rogers is an elderly obese male with long-standing tobacco use, COPD, HTN, and "borderline" DM who presented to the ED this morning with SSCP, SOB, diaphoresis, and ECG changes c/w with an ACS/NSTEMI who has fortunately, been chest discomfort free since shortly after his presentation. Recommendations: * Continue ICU admission, follow-up troponins, follow-up electrocardiograms. * Continue on present cardiac regimen (antiplatelet, anticoagulation, cardioselective beta mackenzie, angiotensin receptor mackenzie, and statin). * Add thienopyridine, clopidogrel 600 mg load followed by 75 mg daily for 1 year. * Echocardiogram to assess left ventricular systolic function, wall thickness and motion, right ventricular function, PA systolic pressure, etc. * He is an appropriate candidate for percutaneous coronary intervention, which will likely take place early next week, if remains clinically and hemodynamically stable. * Prophylaxis for deep venous thrombosis being addressed by IV heparin. Further recommendations will follow, Thank you. Consult Acknowledgment - Thank you for your consult request.
[2017-02-22 14:46] LABS: PTT 60 SEC (25-37)
[2017-02-22 16:00] VITALS: BP 104/70
--- NOTE | 2017-02-22 18:27 | NUR ---
1500: Patient c/o headache 01/24. Gave 650 mg tylenol with good effect. Patient c/o some shortness of breath on exertion which he states he gets at home occasionally with his COPD. O2 sat 92%-95%. Patient resettled in the bed and given emotional reassurance with relief. Continuing to monitor.
[2017-02-22 22:22] LABS: PTT 65 SEC (25-37)
--- NOTE | 2017-02-23 01:17 | NUR ---
AVSS.FOLLOW COMMANDS. NO C'O CP/GEN DISCOMFORT.+PP.NO EDEMA.HEPARIN AND IVF GTT CONT ATC.PTT AND TROPONIN LABS DRAWN AND RESULTS REVIEWED. EKG DONE.LCTA ON RA WITH SATS >92%.C/O SOB AT TIMES AND NEB TX CONT ATC.HOB ELEVATED.MATIAS PO WELL AND VOIDING GOOD UO.
[2017-02-23 05:13] LABS: ABSOLUTE BASOPHIL COUNT 0.1 /CUMM (0.0-0.2); ABSOLUTE EOSINOPHIL COUNT 0.3 /CUMM (0.0-0.7); ABSOLUTE GRANULOCYTE CT 7.6 /CUMM (1.4-6.5); ABSOLUTE LYMPH COUNT 2.4 /CUMM (1.2-3.4); BASOPHIL % 0.7 % (0.0-2.0); EOSINOPHIL % 2.3 % (0-5); GRANULOCYTE % 66.8 % (42.2-75.2); HEMATOCRIT 47.3 % (42-52); MEAN CORPUSCULAR HGB 30.9 PG (27.0-31.0); MEAN CORPUSCULAR HGB CONC 33.3 G/DL (33.0-37.0); MEAN CORPUSCULAR VOLUME 92.7 FL (80.0-94.0); MEAN PLATELET VOLUME 9.7 FL (7.4-10.4); PLATELET COUNT 221 /CUMM (130-400); RBC DISTRIBUTION WIDTH 14.4 % (11.5-14.5); WHITE BLOOD CELL COUNT 11.4 /CUMM (4.8-10.8)
[2017-02-23 06:34] LABS: PTT 74 SEC (25-37)
[2017-02-23 08:00] VITALS: BP 120/80
--- NOTE | 2017-02-23 08:18 | PN- Housestaff ---
Subjective Follow-up For: Chest pain/and STEMI Hypertension Subjective: pt seen and examined this morning. He was lying comfortably in bed in no acute distress. Denies any chest pain, shortness of breath, palpitation, dizziness, any abdominal or urinary symptoms. Remains on IV heparin, clopidogrel, aspirin. Echocardiogram pending Urology on board has recommended percutaneous coronary intervention likely early next week, if clinically and hemodynamically stable. Review of Systems Constitutional: Denies: chills, fever. Cardiovascular: Denies: chest pain, palpitations. Respiratory: Denies: cough, short of breath, sputum production. Gastrointestinal: Denies: abdominal pain, constipation, diarrhea, nausea, vomiting. Genitourinary: Denies: dysuria, frequency. Objective Last 24 Hrs of Vital Signs/I&O Vital Signs Date Time Temp Pulse Resp B/P Pulse O2 O2 Flow FiO2 Ox Delivery Rate 02/23 0805 79 121/84 02/23 0803 89 23 121/84 02/22 2132 79 20 123/79 02/22 1600 95 Room Air Room Air 02/22 1600 98.9 70 30 104/70 95 Room Air Room Air 02/22 1254 80 130/89 02/22 1254 80 130/89 Intake & Output 02/23 1600 02/23 0800 / 0000 Intake Total 668 649 Output Total 900 700 Balance -232 -51 Intake, IV 548 589 Intake, Oral 120 60 Output, Urine 900 700 Physical Exam General Appearance: Alert, Oriented X3, Cooperative, No Acute Distress Cardiovascular: Regular Rate, Normal S1, Normal S2, No Murmurs Lungs: Clear to Auscultation, Normal Air Movement Abdomen: Normal Bowel Sounds, Soft, No Tenderness Extremities: No Clubbing, No Cyanosis, No Edema Current Medications: Current Medications Sig/Mary Start time Last Medication Dose Route Stop Time Status Admin Acetaminophen 650 MG Q6P PRN 02/22 0915 AC 02/23 PO 0518 Albuterol Sulfate 2 PUF Q4 PRN 02/22 0930 AC 02/22 INH 1933 Aspirin Buffered 81 MG DAILY 02/23 1000 AC 02/23 PO 0804 Atorvastatin Calcium 40 MG 1700 02/22 1700 AC 02/22 PO 1705 Budesonide/ 2 PUF BID 02/22 1000 AC 02/23 Formoterol Fumarate INH 0756 Clopidogrel Bisulfate 75 MG DAILY 02/23 1000 AC 02/23 PO 0802 Clopidogrel Bisulfate 600 MG ONCE ONE 02/22 1300 DC 02/22 PO 02/22 1301 1500 Heparin Sodium 25,000 UNIT Q24H 02/22 0630 AC 02/23 (Porcine) IV 0520 Sodium Chloride 500 ML Losartan Potassium 50 MG DAILY 02/22 1000 AC 02/23 PO 0805 Metoprolol Tartrate 6.25 MG BID 02/22 1000 AC 02/23 PO 0803 Multivitamins 1 TAB DAILY 02/22 1000 AC 02/23 PO 0802 Omeprazole 40 MG DAILY AC 02/22 0902 AC 02/23 PO 0605 Phosphate 250 MG PC AND AT BEDTIME 02/23 0900 AC 02/23 PO 02/23 1301 1139 Potassium Chloride 20 MEQ .Q20H 02/22 0745 DC 02/22 Dextrose/Sodium 1,000 ML IV 02/23 0344 1052 Chloride Tiotropium [place] 1 PUF DAILY 02/22 1000 AC 02/23 INH 0800 Last 24 Hrs of Lab/Haroon Results Last 24 Hrs of Labs/Mics: Laboratory Tests 02/23/17 0600: Anion Gap 4 L, Estimated GFR > 60, Glucose 132 H, Calcium 9.8, Phosphorus 3.0, Magnesium 2.2, Total Bilirubin 0.6, AST 19, ALT 34, Albumin 3.5, APTT 74 H 02/23/17 0500: CBC w Diff Cancelled, WBC Cancelled, RBC Cancelled, Hgb Cancelled, Hct Cancelled , MCV Cancelled, MCH Cancelled, RDW Cancelled, Plt Count Cancelled, MPV Cancelled, PUBS MCHC Cancelled 02/23/17 0430: Troponin I 1.34 *H, CBC w Diff NO MAN DIFF REQ, RBC 5.10, MCV 92.7, MCH 30.9, RDW 14.4, MPV 9.7, Gran % 66.8, Lymphocytes % 21.1, Monocytes % 9.1, Eosinophils % 2.3, Basophils % 0.7, Absolute Granulocytes 7.6 H, Absolute Lymphocytes 2.4, Absolute Monocytes 1.0 H, Absolute Eosinophils 0.3, Absolute Basophils 0.1, PUBS MCHC 33.3 02/22/17 2150: Troponin I 1.56 *H, APTT 65 H 02/22/17 1625: Troponin I 1.58 *H 02/22/17 1310: APTT 60 H Assessment/Plan Assessment: Patient is a 77 year old male with PMH on COPD (not on home O2), HTN, GERD, who came to the ED due to 3 episodes of chest pain since last . Patient is found to have elevated troponin on 0.43 and EKG changes consisting of ST depressions in inf and lateral leads (II, III, AVF, V3, V4), he also has proBNP elevated to 1700 and D-dimer of 279. CXR unremarkable, saturating in RA, not in SOB. Patient is admitted to the ICU due to the acute EKG changes and elevated troponin and is started on IV heparin. Problem list and plan: NSTEMI 3 episodes of angina, at rest or on exertion, with elevated troponin and ST depression ProBNP elevated with 1+ pitting edema * started IV heparin * trended troponin and EKG, 1.05-1.58-1.56-1.34 * SL NG for chest pain, * cardiology on board, has recommended PCI early next week having said if patient amends clinically and hemodynamically stable. * Continue aspirin, statin, beta mackenzie * ECHOcardiogram for possible CHF, pending will follow COPD - stable stable, reports chronic coughs and SOB mostly on exertion. D-dimer elevated 279, baseline is unknown, however patient denies worsening SOB, is not tachycardic and is saturating at 97% in RA * continue home medications: Spiriva, Symbicort, Proair HTN Per the patient has borderline HTN, was taking HCTZ, recently PCP DCd it and started him on losartan 100 mg daily * added metoprolol for cardioprotective effects * continued losartan at a lower dose 50 mg daily to prevent hypotension GERD * Omeprazole 40 daily Diet * NPO for possible cath Pain * mils pain pathway with tylenol DVT px * IV heparin FULL code Problem List: 1. GERD (gastroesophageal reflux disease) 2. COPD (chronic obstructive pulmonary disease) 3. Chest pain Pain Ratin Pain Location: chest pain Pain Goal: Remain pain free Pain Plan: mild pp Tomorrow's Labs & Rationales: cbc bep DVT/Prophylaxis: pharmacological
--- NOTE | 2017-02-23 10:20 | NUR ---
BEDSIDE REPORT AT 0700 NOTICE PATIENT IS SOB; O2 SAT 89-90%; 2L NC ADM, SYMBICORT GIVEN, CLEAR LUNG SOUNDS; O2 SAT 96% PATIENT STATES HE FEELS MUCH BETTER RT CALLED FOR TREATMENT, AFEBRILE, A&OX3, DENIES PAIN, REQUEST MORNING MEDS EARLY W/ BREAKFAST; NSR 70-80, BP 120/80, DENIES CP/TIGHTNESS; HEPARIN GTT AT 13.4 UNITS/KG/HR NEXT PTT DUE AT 6PM; TOLERATED 100% H/H DIET VOIDS IN URINAL; PER MD'S OK TO GET OOB TO COOMODE TOLERATING SITTING ON THE SIDE OF THE BED; WILL CONTINUE TO MONITOR
--- NOTE | 2017-02-23 12:16 | PN- Att Addend ---
Attending Addendum Attending Brief Note Patient seen and examined, feeling better. Earlier in the morning he had some shortness of breath and oxygen helped. He denies any further chest pains and his vital signs are stable. Vital Signs Date Time Temp Pulse Resp B/P Pulse O2 O2 Flow FiO2 Ox Delivery Rate 02/23 0805 79 121/84 02/23 0803 89 23 121/84 02/22 2132 79 20 123/79 02/22 1600 95 Room Air Room Air 02/22 1600 98.9 70 30 104/70 95 Room Air Room Air 02/22 1254 80 130/89 02/22 1254 80 130/89 02/22 1200 93 Room Air Room Air on exam; aox3, nad. cv; s1,s2 rrr resp; clear b/l abd: soft, nt, bs+ ext; no edema. Laboratory Tests 02/23 02/23 02/23 0600 0500 0430 Chemistry Sodium (137 - 145 mmol/L) 136 L Potassium (3.5 - 5.1 mmol/L) 4.3 Chloride (98 - 107 mmol/L) 107 Carbon Dioxide (22 - 30 mmol/L) 24 Anion Gap (5 - 16) 4 L BUN (9 - 20 mg/dL) 17 Creatinine (0.7 - 1.2 mg/dL) 1.0 Estimated GFR (>60 ml/min) > 60 Glucose (65 - 99 mg/dL) 132 H Calcium (8.4 - 10.2 mg/dL) 9.8 Phosphorus (2.5 - 4.5 mg/dL) 3.0 Magnesium (1.6 - 2.3 mg/dL) 2.2 Total Bilirubin (0.2 - 1.3 mg/dL) 0.6 AST (17 - 59 U/L) 19 ALT (21 - 72 U/L) 34 Troponin I (<0.11 ng/ml) 1.34 *H Albumin (3.5 - 5.0 g/dL) 3.5 Coagulation APTT (25 - 37 SEC) 74 H Hematology CBC w Diff Cancelled NO MAN DIFF REQ WBC (4.8 - 10.8 /CUMM) Cancelled 11.4 H RBC (4.70 - 6.10 /CUMM) Cancelled 5.10 Hgb (14.0 - 18.0 G/DL) Cancelled 15.7 Hct (42 - 52 %) Cancelled 47.3 MCV (80.0 - 94.0 FL) Cancelled 92.7 MCH (27.0 - 31.0 PG) Cancelled 30.9 RDW (11.5 - 14.5 %) Cancelled 14.4 Plt Count (130 - 400 /CUMM) Cancelled 221 MPV (7.4 - 10.4 FL) Cancelled 9.7 Gran % (42.2 - 75.2 %) 66.8 Lymphocytes % (20.5 - 51.1 %) 21.1 Monocytes % (1.7 - 9.3 %) 9.1 Eosinophils % (0 - 5 %) 2.3 Basophils % (0.0 - 2.0 %) 0.7 Absolute Granulocytes (1.4 - 6.5 /CUMM) 7.6 H Absolute Lymphocytes (1.2 - 3.4 /CUMM) 2.4 Absolute Monocytes (0.10 - 0.60 /CUMM) 1.0 H Absolute Eosinophils (0.0 - 0.7 /CUMM) 0.3 Absolute Basophils (0.0 - 0.2 /CUMM) 0.1 PUBS MCHC (33.0 - 37.0 G/DL) Cancelled 33.3 04/08 04/08 02/22 2150 1625 1310 Chemistry Troponin I (<0.11 ng/ml) 1.56 *H 1.58 *H Coagulation APTT (25 - 37 SEC) 65 H 60 H A/P; 77 y/o M with pmh sig for COPD (not on home O2), HTN, GERD admitted to ICU with chest pain and NSTEMI. Appreciate cardiology input. Patient was loaded with Plavix and now on aspirin, Plavix, beta mackenzie, statin, and ARB. Please discuss with ice guard tester if there is any plans for cardiac cath tomorrow. Continue all inhalers TRC nebs. DVT prophylaxis: Heparin drip. Keep in ICU.
[2017-02-23 16:00] VITALS: BP 118/78
--- NOTE | 2017-02-23 16:00 | NUR ---
ASSUMED CARE OF PATIENT, PATIENT ALERT AND ORX3, DEEDEE WITH NO COMPLAINTS OF PAIN. MOVES ALL EXTREMITIES WELL. MONITOR NSR, LUNGS WITH SCATTERED RHONCHI, DENIES SOB WITH 2L OXYGEN VIA NASAL CANULA. ABD SOFT NON TENDER WITH GOOD BOWEL SOUNDS, VOIDING WITHOUT PROBLEMS. SKIN INTACT.
[2017-02-23 20:01] LABS: PTT 63 SEC (25-37)
[2017-02-23 23:22] VITALS: BP 116/60
--- NOTE | 2017-02-23 23:37 | ECHOCARDIOGRAM REPORT ---
CHILANGO PEÑALOZA Age: 77 : 1940 Gender: M Exam Date: 02/23/2017 09:26 Exam Location: [facility] Ht (in): 64 Wt (lb): 194 BSA: 2.03 BP: 123 / 79 Ordering Physician: ARFIA BEAN MD Referring Physician: Car Layne MD Technologist: Bekah Bruno [facility] Room Number: [id number] Indications: CHEST PAIN Rhythm: Sinus Technical Quality: Fair FINDINGS Left Ventricle Normal size left ventricle. Mild concentric left ventricular hypertrophy. No obvious regional wall motion abnormalities. Normal left ventricular ejection fraction visually estimated at >65%. Abnormal relaxation filling pattern of the left ventricle for age (stage 1 diastolic dysfunction). Right Ventricle Normal right ventricular size and function. Right Atrium Normal right atrial size. Left Atrium Normal left atrial size. Mitral Valve Mildly calcified mitral valve annulus. Mitral valve leaflets structurally normal. Mild mitral regurgitation. Aortic Valve Trileaflet aortic valve. Mild aortic sclerosis. No aortic valve stenosis or regurgitation. Tricuspid Valve Structurally normal tricuspid valve. No tricuspid regurgitation. Unable to estimate the right ventricular systolic pressure. Pulmonic Valve Pulmonic valve not well visualized, grossly normal. Trace pulmonic regurgitation. Pericardium No pericardial effusion. Great Vessels Normal size aortic root. Mildly dilated proximal ascending aorta (tube). Normal size inferior vena cava. CONCLUSIONS Normal size left ventricle. Mild concentric left ventricular hypertrophy. No obvious regional wall motion abnormalities. Normal left ventricular ejection fraction visually estimated at > 65%. Abnormal relaxation filling pattern of the left ventricle for age (stage 1 diastolic dysfunction). Normal right ventricular size and function. Normal atrial size. Mild mitral regurgitation. Unable to estimate the right ventricular systolic pressure. Trace pulmonic regurgitation. Mildly dilated proximal ascending aorta (tube). Car Layne M.D. (Electronically Signed) Final Date: 23 February 2017 23:37 MEASUREMENTS (Male / Female) Normal Values 2D ECHO LV Diastolic Diameter PLAX 4.6 cm 4.2 - 5.9 / 3.9 - 5.3 cm LV Systolic Diameter PLAX 2.8 cm 2.1 - 4.0 cm LV Fractional Shortening PLAX 39.1 % 25 - 46 % LV Ejection Fraction 2D Teich 69.6 % IVS Diastolic Thickness 1.3 cm IVS Systolic Thickness 1.4 cm LV Relative Wall Thickness 0.5 RV Internal Dim ED PLAX 2.5 cm 1.9 - 3.8 cm LVOT Diameter 1.9 cm Aortic Root Diameter 3.2 cm LA Systolic Diameter LX 3.2 cm 3.0 - 4.0 / 2.7 - 3.8 cm LA Volume 35.0 cm 18 - 58 / 22 - 52 cm Ascending Aorta Diameter 3.9 cm IVC Diameter Inspiration 1.3 cm DOPPLER AV Peak Velocity 135.0 cm/s AV Peak Gradient 7.3 mmHg AV Mean Velocity 98.1 cm/s AV Mean Gradient 4.0 mmHg AV Velocity Time Integral 27.0 cm LVOT Peak Velocity 119.0 cm/s LVOT Peak Gradient 5.7 mmHg LVOT Mean Velocity 79.2 cm/s LVOT Mean Gradient 3.0 mmHg LVOT Velocity Time Integral 22.9 cm LVOT Stroke Volume 64.9 cm AV Area Cont Eq vti 2.4 cm AV Area Cont Eq pk 2.5 cm MV Peak Velocity 108.0 cm/s MV Peak Gradient 4.7 mmHg MV Mean Velocity 61.9 cm/s MV Mean Gradient 2.0 mmHg Mitral E Point Velocity 80.9 cm/s Mitral A Point Velocity 99.2 cm/s Mitral E to A Ratio 0.8 MV PHT Velocity 96.2 cm/s MV Deceleration [place] 335.0 cm/s MV Pressure Half Time 86.1 ms MV Area PHT 2.6 cm MV Deceleration Time 261.0 ms PV Peak Velocity 121.0 cm/s PV Peak Gradient 5.9 mmHg PV Mean Velocity 78.0 cm/s PV Mean Gradient 3.0 mmHg PV Velocity Time Integral 21.5 cm LV E' Lateral Velocity 9.9 cm/s Mitral E to LV E' Lateral Ratio 8.2 LV E' Septal Velocity 6.2 cm/s Mitral E to LV E' Septal Ratio 13.0
[2017-02-24 07:48] LABS: ABSOLUTE BASOPHIL COUNT 0.1 /CUMM (0.0-0.2); ABSOLUTE EOSINOPHIL COUNT 0.2 /CUMM (0.0-0.7); ABSOLUTE GRANULOCYTE CT 9.7 /CUMM (1.4-6.5); ABSOLUTE LYMPH COUNT 2.1 /CUMM (1.2-3.4); ABSOLUTE MONOCYTE COUNT 1.4 /CUMM (0.10-0.60); BASOPHIL % 0.4 % (0.0-2.0); EOSINOPHIL % 1.6 % (0-5); GRANULOCYTE % 71.7 % (42.2-75.2); HEMATOCRIT 48.2 % (42-52); MEAN CORPUSCULAR HGB 30.4 PG (27.0-31.0); MEAN CORPUSCULAR HGB CONC 32.9 G/DL (33.0-37.0); MEAN CORPUSCULAR VOLUME 92.3 FL (80.0-94.0); MEAN PLATELET VOLUME 9.4 FL (7.4-10.4); PLATELET COUNT 261 /CUMM (130-400); RBC DISTRIBUTION WIDTH 14.7 % (11.5-14.5); RED BLOOD CELL CT 5.22 /CUMM (4.70-6.10); WHITE BLOOD CELL COUNT 13.6 /CUMM (4.8-10.8)
[2017-02-24 08:00] VITALS: BP 112/70
[2017-02-24 08:22] LABS: PTT 69 SEC (25-37)
--- NOTE | 2017-02-24 08:23 | PN- Resident CRCU ---
Impression/Plan Plan DVT/Prophylaxis: pharmacological
--- NOTE | 2017-02-24 08:24 | PN- Housestaff ---
LAZ LEON,ESTELLA 02/24/17 0824: Subjective Follow-up For: NSTEMI Tele-Events Since Last Visit: kosta to 47 Subjective: Pt was seen this morning, was sitting comfortably in bed. Denies shortness of breath and chest tightness, reports that the supplemental oxygen at 2L is making all the difference. Currently awaiting hospital aides and assistants teacher decision on transferring pt for cardiac cath. Pt has been NPO since midnight. 24 hr data: max temp 98.9 UT 70-97 SR RR 18-20 systolic bp 111-147 diastolic bp 65-79 wbc 11.4 to 13.6. max trop 1.58, has since came down. echo shows stage 1 diastolic dysfunction. Review of Systems Constitutional: Reports: see HPI. Objective Last 24 Hrs of Vital Signs/I&O Vital Signs Date Time Temp Pulse Resp B/P Pulse O2 O2 Flow FiO2 Ox Delivery Rate 02/25 800 96 Nasal 2.0L Cannula 02/24 08 98.5 77 20 112/70 95 Nasal 2.0L Cannula 02/23 2322 93 Nasal 2.0L Cannula 02/23 2322 98.4 92 20 116/60 93 Nasal 2.0L Cannula 02/23 2121 76 24 127/65 02/23 2000 94 2.0L 02/23 1600 93 Nasal 2.0L Cannula 02/23 1600 98.2 86 24 118/78 93 Nasal 2.0L Cannula 02/23 1200 95 Nasal 2.0L Cannula Intake & Output 02/24 1600 02/24 0800 02/24 0000 Intake Total 309 669 Output Total 675 525 Balance -366 144 Intake, IV 189 189 Intake, Oral 120 480 Number 1 Bowel Movements Output, Urine 675 525 Physical Exam General Appearance: Alert, Oriented X3, Cooperative, No Acute Distress Skin: No Significant Lesion HEENT: Atraumatic Cardiovascular: Regular Rate, Normal S1, Normal S2 Lungs: diffuse mild rhonchi, decreased breath sound Abdomen: Normal Bowel Sounds, Soft, No Tenderness Neurological: Normal Speech Extremities: trace pedal edema Current Medications: Current Medications Sig/Mary Start time Last Medication Dose Route Stop Time Status Admin Acetaminophen 650 MG Q6P PRN 02/22 0915 AC 02/24 PO 0712 Albuterol Sulfate 2 PUF Q4 PRN 02/22 930 AC 02/22 INH 1933 Aspirin Buffered 81 MG DAILY 02/23 1000 AC 02/23 PO 0804 Atorvastatin Calcium 40 MG 1700 02/22 1700 AC 02/23 PO 1629 Budesonide/ 2 PUF BID 02/22 1000 AC 02/23 Formoterol Fumarate INH 212 Clopidogrel Bisulfate 75 MG DAILY 02/23 1000 AC 02/23 PO 0802 Heparin Sodium 25,000 UNIT Q24H 02/22 0630 AC 02/23 (Porcine) IV 2305 Sodium Chloride 500 ML Losartan Potassium 50 MG DAILY 02/22 1000 AC 02/23 PO 0805 Metoprolol Tartrate 6.25 MG BID 02/22 1000 AC 02/23 PO 2121 Multivitamins 1 TAB DAILY 02/22 1000 AC 02/23 PO 0802 Omeprazole 40 MG DAILY AC 02/22 902 AC 02/24 PO 0709 Phosphate 250 MG PC AND AT BEDTIME 02/23 900 DC 02/23 PO 02/23 1301 1421 Tiotropium [place] 1 PUF DAILY 02/22 1000 AC 02/23 INH 0800 Last 24 Hrs of Lab/[place] Results Last 24 Hrs of Labs/Mics: Laboratory Tests 02/24/17 0610: Anion Gap 9, Estimated GFR > 60, Glucose 126 H, Calcium 9.6, Phosphorus 3.3, Magnesium 2.2, Total Bilirubin 0.6, AST 17, ALT 34, Albumin 3.6, APTT 69 H, CBC w Diff NO MAN DIFF REQ, RBC 5.22, MCV 92.3, MCH 30.4, RDW 14.7 H, MPV 9.4, Gran % 71.7, Lymphocytes % 15.6 L, Monocytes % 10.7 H, Eosinophils % 1.6, Basophils % 0.4, Absolute Granulocytes 9.7 H, Absolute Lymphocytes 2.1, Absolute Monocytes 1.4 H, Absolute Eosinophils 0.2, Absolute Basophils 0.1, PUBS MCHC 32.9 L 02/23/17 1800: APTT 63 H Assessment/Plan Assessment: Patient is a 77 year old male with PMH on COPD (not on home O2), HTN, GERD, who came to the ED due to 3 episodes of chest pain since last . On admission , patient is found to have elevated troponin on 0.43 and EKG changes consisting of ST depressions in inf and lateral leads (II, III, AVF, V3, V4), he also has proBNP elevated to 1700 and D-dimer of 279. CXR unremarkable, saturating in RA, not in SOB. Patient is admitted to the ICU due to the acute EKG changes and elevated troponin and is started on IV heparin. His troponin peaked at 1.58 and has since come down. Plan to transfer patient for cardiac cath. Problem list and plan: # NSTEMI - 3 episodes of angina, at rest or on exertion, with elevated troponin and ST depression - ProBNP elevated with 1+ pitting edema - trended troponin and EKG, 1.05-1.58-1.56-1.34 - ECHOcardiogram: stage 1 diastolic dysfunction. Normal left ventricular ejection fraction visually estimated at > 65%. * Continue IV heparin * SL NG for chest pain * cardiology on board, has recommended PCI early this week having said if patient amends clinically and hemodynamically stable * Continue aspirin, statin, beta mackenzie (low dose given COPD) * Given clopidogrel loading dose 600 on 02/22/17, subsequently 75 daily, to be continued for 1 year # COPD - stable - stable, reports chronic coughs and SOB mostly on exertion. - D-dimer elevated 279, baseline is unknown, however patient denies worsening SOB, is not tachycardic and is saturating at 97% in RA * continue home medications: Spiriva, Symbicort, Proair * Supplemental O2 as needed # HTN Per the patient has borderline HTN, was taking HCTZ, recently PCP DCd it and started him on losartan 100 mg daily * added metoprolol for cardioprotective effects * continued losartan at a lower dose 50 mg daily to prevent hypotension # GERD * Omeprazole 40 daily Diet * NPO for possible cath Pain * mils pain pathway with tylenol DVT px * IV heparin FULL code Problem List: 1. NSTEMI (non-ST elevated myocardial infarction) Pain Ratin Pain Location: none Pain Goal: Remain pain free Pain Plan: none Tomorrow's Labs & Rationales: cbc leukocytosis and on heparin DVT/Prophylaxis: mechanical, pharmacological DEBBI LEON,REJI 02/24/17 1027: Attending MD Review Statement Attending Statement Attending MD Statement: examined this patient, discuss w/resident/PA/PARIMUTUEL CLERK, agreed w/resident/PA/PARIMUTUEL CLERK, discussed with family, reviewed EMR data (avail), discussed with nursing, discussed with case mgmt, reviewed images, amended to note Attending Assessment/Plan: Patient seen and examined, feels well. Offers no complaints and no acute issues overnight. Dr. Lewis stopped by and he is planning to take patient for cardiac cath this evening at [facility]. Vital Signs Date Time Temp Pulse Resp B/P Pulse O2 O2 Flow FiO2 Ox Delivery Rate 02/24 925 78 112/79 02/25 800 96 Nasal 2.0L Cannula 02/25 800 98.5 77 20 112/70 95 Nasal 2.0L Cannula 02/23 232 93 Nasal 2.0L Cannula 02/23 232 98.4 92 20 116/60 93 Nasal 2.0L Cannula 02/23 2121 76 24 127/65 02/23 2000 94 2.0L 02/23 1600 93 Nasal 2.0L Cannula 02/23 1600 98.2 86 24 118/78 93 Nasal 2.0L Cannula 02/23 1200 95 Nasal 2.0L Cannula on exam; aox3, nad. cv; s1,s2, rrr resp; clear abd; soft, nt, bs+ ext; no edema Laboratory Tests 02/24 02/23 0610 1800 Chemistry Sodium (137 - 145 mmol/L) 139 Potassium (3.5 - 5.1 mmol/L) 4.4 Chloride (98 - 107 mmol/L) 106 Carbon Dioxide (22 - 30 mmol/L) 25 Anion Gap (5 - 16) 9 BUN (9 - 20 mg/dL) 18 Creatinine (0.7 - 1.2 mg/dL) 0.9 Estimated GFR (>60 ml/min) > 60 Glucose (65 - 99 mg/dL) 126 H Calcium (8.4 - 10.2 mg/dL) 9.6 Phosphorus (2.5 - 4.5 mg/dL) 3.3 Magnesium (1.6 - 2.3 mg/dL) 2.2 Total Bilirubin (0.2 - 1.3 mg/dL) 0.6 AST (17 - 59 U/L) 17 ALT (21 - 72 U/L) 34 Albumin (3.5 - 5.0 g/dL) 3.6 Coagulation APTT (25 - 37 SEC) 69 H 63 H Hematology CBC w Diff NO MAN DIFF REQ WBC (4.8 - 10.8 /CUMM) 13.6 H RBC (4.70 - 6.10 /CUMM) 5.22 Hgb (14.0 - 18.0 G/DL) 15.9 Hct (42 - 52 %) 48.2 MCV (80.0 - 94.0 FL) 92.3 MCH (27.0 - 31.0 PG) 30.4 RDW (11.5 - 14.5 %) 14.7 H Plt Count (130 - 400 /CUMM) 261 MPV (7.4 - 10.4 FL) 9.4 Gran % (42.2 - 75.2 %) 71.7 Lymphocytes % (20.5 - 51.1 %) 15.6 L Monocytes % (1.7 - 9.3 %) 10.7 H Eosinophils % (0 - 5 %) 1.6 Basophils % (0.0 - 2.0 %) 0.4 Absolute Granulocytes (1.4 - 6.5 /CUMM) 9.7 H Absolute Lymphocytes (1.2 - 3.4 /CUMM) 2.1 Absolute Monocytes (0.10 - 0.60 /CUMM) 1.4 H Absolute Eosinophils (0.0 - 0.7 /CUMM) 0.2 Absolute Basophils (0.0 - 0.2 /CUMM) 0.1 PUBS MCHC (33.0 - 37.0 G/DL) 32.9 L A/P; 77 y/o M with pmh sig for COPD (not on home O2), HTN, GERD admitted to ICU with chest pain and NSTEMI. Patient currently treated with aspirin, Lasix, heparin drip, beta mackenzie, statin and EMB. Seen by Dr. Lewis this morning and he plans to take him for cardiac This evening at [facility]. Patient has been kept nothing by mouth. He will receive all of his medications and heparin drip will be continued. Discussed the patient's at bedside.
--- NOTE | 2017-02-24 09:29 | Patient Discharge Instructions ---
Discharge Instructions General Discharge Information You were seen/treated for: NSTEMI (myocardial infarction)/ Heart attack Special Instructions: Please follow up with rest room matron in 1 week. Please continue to take plavix for 1 year. Diet Continue normal diet: Yes Recommended Diet: Heart Healthy Activity Full Activity/No Limits: Yes Acute Coronary Syndrome Inclusion Criteria At DC or during hospital stay patient has or had the following: ACS DIAGNOSIS Yes Discharge Core Measures Meds if any: Prescribed or Continued at Discharge BROWN/ARB if EF <40% Yes (EF > 40%) Aspirin Yes Beta-Humza Yes Statin Yes Meds if any: NOT Prescribed or Continued at Discharge Congestive Heart Failure Inclusion Criteria At DC or during hospital stay patient has or had the following: CHF DIAGNOSIS No Discharge Core Measures Meds if any: Prescribed or Continued at Discharge Meds if any: NOT Prescribed or Continued at Discharge Cerebrovascular accident Inclusion Criteria At DC or during hospital stay patient has or had the following: CVA/TIA Diagnosis No Discharge Core Measures Meds if any: Prescribed or Continued at Discharge Meds if any: NOT Prescribed or Continued at Discharge Venous thromboembolism Inclusion Criteria VTE Diagnosis No VTE Type NONE VTE Confirmed by (Test) NONE Discharge Core Measures - Per Current guidelines, there needs to be overlap - treatment for the first 5 days of Warfarin therapy. - If discharged on Warfarin prior to 5 days of - overlap therapy, the patient will need to be - assessed for post discharge needs including - *Post discharge parental anticoagulation - *Warfarin and/or parental anticoagulation education - *Follow up date to check INR post discharge At least 5 days overlap therapy as Inpatient No Meds if any: Prescribed or Continued at Discharge Note: Overlap Therapy is Warfarin and Anticoagulant Meds if any: NOT Prescribed or Continued at Discharge
[2017-02-24] MEDS ORDERED: HEPARIN-1/25000 UNI1 IV (10:37)
[2017-02-24] MEDS ORDERED: ASPIRIN EC81 M1 PO (10:50)
--- NOTE | 2017-02-24 10:50 | PN- Cardiology ---
Subjective Subjective: No complaints. Denies any further chest discomfort. No change in his chronic shortness of breath. Objective Vital Signs and I&Os Vital Signs Date Time Temp Pulse Resp B/P Pulse O2 O2 Flow FiO2 Ox Delivery Rate 02/24 925 78 112/79 02/25 800 96 Nasal 2.0L Cannula 02/25 800 98.5 77 20 112/70 95 Nasal 2.0L Cannula 02/23 2322 93 Nasal 2.0L Cannula 02/23 2322 98.4 92 20 116/60 93 Nasal 2.0L Cannula 02/23 2121 76 24 127/65 02/23 2000 94 2.0L 02/23 1600 93 Nasal 2.0L Cannula 02/23 1600 98.2 86 24 118/78 93 Nasal 2.0L Cannula 02/23 1200 95 Nasal 2.0L Cannula Intake & Output 02/24 1600 02/24 0802/24 0000 02/23 1600 02/23 0802/23 0000 Intake Total 309 669 788 668 649 Output Total 675 525 800 900 700 [place] [address] 144 -12 -232 -51 Intake, IV 189 189 188 548 589 Intake, Oral 120 480 600 120 60 Number 1 0 Bowel Movements Output, Urine 675 525 800 900 700 Patient 191 lb Weight Physical Exam: Well-developed, overweight elderly male in no acute distress. Vital signs: See above. Lungs: Decreased breath sounds bilaterally. Heart: S1, S2 with no murmur, gallop, or rub appreciated. ICS at MCL. Abdomen: Soft, nontender, positive bowel sounds. Extremities: No edema. Current Medications: Current Medications Sig/Mary Start time Last Medication Dose Route Stop Time Status Admin Acetaminophen 650 MG Q6P PRN 02/22 0915 AC 02/24 PO 0712 Albuterol Sulfate 2 PUF Q4 PRN 02/22 0930 AC 02/22 INH 1933 Aspirin Buffered 81 MG DAILY 02/23 1000 AC 02/24 PO 0924 Atorvastatin Calcium 40 MG 1700 02/22 1700 AC 02/23 PO 1629 Budesonide/ 2 PUF BID 02/22 1000 AC 02/24 Formoterol Fumarate INH 0926 Clopidogrel Bisulfate 75 MG DAILY 02/23 1000 AC 02/23 PO 0802 Heparin Sodium 25,000 UNIT Q24H 02/22 0630 AC 02/23 (Porcine) IV 2305 Sodium Chloride 500 ML Losartan Potassium 50 MG DAILY 02/22 1000 AC 02/23 PO 08 Metoprolol Tartrate 6.25 MG BID 02/22 1000 AC 02/24 PO 924 Multivitamins 1 TAB DAILY 02/22 1000 AC 02/24 PO 923 Omeprazole 40 MG DAILY AC 02/22 902 AC 02/24 PO 07 Phosphate 250 MG PC AND AT BEDTIME 02/23 0900 DC 02/23 PO 02/23 1301 1421 Tiotropium [place] 1 PUF DAILY 02/22 1000 AC 02/24 INH 0926 Results Last 48 Hrs of Labs/Mics: Laboratory Tests 02/24/17 0610: Anion Gap 9, Estimated GFR > 60, Glucose 126 H, Calcium 9.6, Phosphorus 3.3, Magnesium 2.2, Total Bilirubin 0.6, AST 17, ALT 34, Albumin 3.6, APTT 69 H, CBC w Diff NO MAN DIFF REQ, RBC 5.22, MCV 92.3, MCH 30.4, RDW 14.7 H, MPV 9.4, Gran % 71.7, Lymphocytes % 15.6 L, Monocytes % 10.7 H, Eosinophils % 1.6, Basophils % 0.4, Absolute Granulocytes 9.7 H, Absolute Lymphocytes 2.1, Absolute Monocytes 1.4 H, Absolute Eosinophils 0.2, Absolute Basophils 0.1, PUBS MCHC 32.9 L 02/23/17 1800: APTT 63 H 02/23/17 0600: Anion Gap 4 L, Estimated GFR > 60, Glucose 132 H, Calcium 9.8, Phosphorus 3.0, Magnesium 2.2, Total Bilirubin 0.6, AST 19, ALT 34, Albumin 3.5, APTT 74 H 02/23/17 0500: CBC w Diff Cancelled, WBC Cancelled, RBC Cancelled, Hgb Cancelled, Hct Cancelled , MCV Cancelled, MCH Cancelled, RDW Cancelled, Plt Count Cancelled, MPV Cancelled, PUBS MCHC Cancelled 02/23/17 0430: Troponin I 1.34 *H, CBC w Diff NO MAN DIFF REQ, RBC 5.10, MCV 92.7, MCH 30.9, RDW 14.4, MPV 9.7, Gran % 66.8, Lymphocytes % 21.1, Monocytes % 9.1, Eosinophils % 2.3, Basophils % 0.7, Absolute Granulocytes 7.6 H, Absolute Lymphocytes 2.4, Absolute Monocytes 1.0 H, Absolute Eosinophils 0.3, Absolute Basophils 0.1, PUBS MCHC 33.3 02/22/17 2150: Troponin I 1.56 *H, APTT 65 H 02/22/17 1625: Troponin I 1.58 *H 02/22/17 1310: APTT 60 H Recent Imaging Studies: Echocardiogram (02/23/1027): Normal size left ventricle. Mild concentric left ventricular hypertrophy. No obvious regional wall motion abnormalities. Normal left ventricular ejection fraction visually estimated at >65%. Abnormal relaxation filling pattern of the left ventricle for age (stage 1 diastolic dysfunction). Normal right ventricular size and function. Normal atrial size. Mild mitral regurgitation. Unable to estimate the right ventricular systolic pressure. Trace pulmonic regurgitation. Mildly dilated proximal ascending aorta (tube). Assessment/Plan Assessment/Plan Mr. Rogers is an elderly obese male with long-standing tobacco use, COPD, HTN, and "borderline" DM who presented to the ED on the morning of 02/22/2017 with SSCP, SOB, diaphoresis, and ECG changes c/w with an ACS/NSTEMI who has fortunately, been chest discomfort free since shortly after his presentation. Fortunately, he has had only a modest peak troponin elevation (1.58 ng/ml) which has trended downwards and had preserved left ventricular systolic function and yesterday's echocardiogram. Discussed management options with the patient including cardiac catheterization with an eye towards revascularization. Cardiac catheterization was discussed in detail emphasizing its risks, benefits, and alternatives. After answering several questions regarding the procedure, Mr. Rogers would like to proceed with cardiac catheterization and percutaneous coronary intervention (PCI) as needed. Recommendations: * The plan is for transfer the patient to to [facility] with Fantasma Lewis M.D., PhD as the accepting physician for cardiac catheterization this afternoon. * Continue on present cardiac regimen (antiplatelets, anticoagulation, cardioselective beta mackenzie, angiotensin receptor mackenzie, and statin). * Prophylaxis for deep venous thrombosis being addressed by IV heparin. Continue telemetry? Yes
[2017-02-24] MEDS ORDERED: PLAVIX75 M1 PO (10:51)
[2017-02-24] MEDS ORDERED: ATORVASTATIN CA40 M1 PO (10:51)
--- NOTE | 2017-02-24 10:52 | PN- Cardiology ---
Subjective Subjective: Continues to feel improved. No further chest discomfort on nasal O2 and present cardiac regimen. Objective Vital Signs and I&Os Vital Signs Date Time Temp Pulse Resp B/P Pulse O2 O2 Flow FiO2 Ox Delivery Rate 02/23 1600 93 Nasal 2.0L Cannula 02/23 1600 98.2 86 24 118/78 93 Nasal 2.0L Cannula 02/23 1200 95 Nasal 2.0L Cannula 02/23 0805 79 121/84 02/23 0803 89 23 121/84 02/23 08 97.9 76 23 120/80 96 Nasal 2.0L Cannula 02/23 08 96 Nasal 2.0L Cannula 02/22 2132 79 20 123/79 Intake & Output 02/23 1600 02/23 0802/23 0000 02/22 1600 02/22 0000 Intake Total 788 668 649 354 Output Total 800 033 653 1668 Balance -12 -232 -51 -646 Intake, IV 188 548 589 304 Intake, Oral 600 120 60 50 Number 0 Bowel Movements Output, Urine 800 783 432 6539 Patient 194 lb 194 lb Weight Physical Exam: Well-developed, overweight elderly male in no acute distress. Vital signs: See above. Lungs: Decreased breath sounds bilaterally. Heart: S1, S2 with no murmur, gallop, or rub appreciated. ICS at [facility]. Abdomen: Soft, nontender, positive bowel sounds. Extremities: No edema. Assessment/Plan Assessment/Plan Mr. Rogers is an elderly obese male with long-standing tobacco use, COPD, HTN, and "borderline" DM who presented to the ED 02/22/2017 with SSCP, SOB, diaphoresis, and ECG changes c/w an ACS/NSTEMI who has fortunately, remained chest discomfort free since shortly after his presentation and being placed on his present regimen. His troponin has trended downward after a modest peak elevation of 1.5 ng/ml and his electrocardiograms have remained abnormal, but not significantly changed. Recommended cardiac catheterization with an eye towards revascularization. Cardiac catheterization in detail emphasizing its risks, benefits, and alternatives to this procedure Recommendations: * Continue on present cardiac regimen (dual antiplatelets, statin, bicarbonate, beta mackenzie, and parenteral any coagulation). * Make nothing by mouth after midnight so cardiac catheterization can be performed tomorrow, if possible. * Follow-up on echocardiogram performed earlier. * DVT prophylaxis being addressed by IV heparin. Continue telemetry? Yes
[2017-02-24] MEDS ORDERED: LOSARTAN POTASS50 M1 PO (10:53)
[2017-02-24] MEDS ORDERED: METOPROLOL SUCC25 M1 PO (10:53)
[2017-02-24] MEDS ORDERED: OMEPRAZOLE20 M2 PO (10:54)
[2017-02-24 11:01] VITALS: BP 116/76
--- NOTE | 2017-02-24 14:54 | Discharge Summary ---
Visit Information Visit Dates Admission Date: 02/22/17 Discharge Date: 02/24/17 Hospital Course Course Attending Physician: REJI WERNER MD Primary Care Physician: LYSSA YARBROUGH MD Hospital Course: This is a 77-year-old male with past medical history of COPD not on home oxygen, hypertension, gastroesophageal reflux disease who came in to the emergency department with chief complaint of chest pain on 02/22/2017. She had 3 episodes of chest pain since 2 days prior to admission, felt chest tightness in the middle of the chest when she was carrying some garbage outside the house, she also felt shortness of breath, pain was 7 out of 10, dull in nature, lasted for about 30 minutes and went away by itself. She had another episode one day prior to admission this was at rest, it was again dull in nature and resolved by itself. On the day of admission she had another similar episode. vitals on presentation he was afebrile, pulse of 70-90, respiration of 20, blood pressure of 139/98, 96% on room air. On presentation at the emergency department patient was alert oriented 3, was cooperative and not in significant acute distress.She had a regular rate with normal S1-S2 and no murmurs.Bilateral breathe sounds, reduced in the lower lungs. Per abdominal had soft nontender.Bilateral lower extremity pitting edema 1+ was present on admission.Pulses were palpable bilaterally. Labs : White count of 13.6, H/H of 16.9/40.3, platelet of 258, H are within normal limits, troponin was positive to 0.43 on presentation, proBNP was elevated to 1700, d-dimer was 279. EKG on presentation showed normal sinus rhythm, rate of 82, NJ interval of 192, QTC of 472, there were ST segment depression in the inferior and lateral leads, 2-3 aVF, V3 and V4. Cxray did show any acute cardiopulmonary process. #1 NSTEMI Patient was admitted to the ICU for Non-ST elevation FL with 3 episodes of angina at rest and on exertion with elevated troponins and ST depression. Patient was started on IV heparin. EKG and troponins were trended.Troponin trend 0.43>>>1.05>> 1.58 >> 1.56 >> 1.34 echocardiogram showed stage I diastolic dysfunction with normal left ventricular ejection fraction visually estimated to be greater than 55%.. Patient was given sublingual nitroglycerin when necessary for chest pain. Cardiology was on board and recommended PCI therefore it was planned to transfer the patient to [facility] for further management. Patient was continued on aspirin, statin and beta mackenzie (low-dose beta mackenzie was given secondary to presence of COPD). Patient was given clopidogrel loading dose of 600 on 02/22/2017, subsequently 75 daily to be continued for one year. #2 COPD. Patient's COPD is stable, reports chronic cough and shortness of breath mostly on exertion which could be secondary to cardiac origin. D-dimer was elevated to be 279, patient was continued on his home medication of Spiriva, Symbicort and pro-air. Oxygen was supplemented as needed. #3 hypertension Patient had borderline hypertension, was taking hydrochlorothiazide, recently PCP had discontinued it and started him on losartan 100 mg daily. Metoprolol was added for cardioprotective effect, continue losartan at lower dose of 50 mg daily to prevent hypotension. #4 GERD. Patient was continued on 40 mg of omeprazole daily. Patient was kept nothing by mouth for possible cardiac cath today. Mild/ moderate and severe pain medication with Tylenol mostly. Patient will be continued on IV heparin and Route to [facility]. Pt is full code. DVT prophylaxis with IV heparin. Pain management with Tylenol mostly, sublingual nitroglycerin for chest pain. Allergies: Coded Allergies: No Known Allergies (02/22/17) Significant Procedures: SERVICE DATE: 02/22/17 EXAM TYPE: RAD - XRY-PORTABLE CHEST XRAY EXAMINATION: XR PORTABLE CHEST CLINICAL INFORMATION: Chest pain COMPARISON: Chest x-ray 03/18/2014 TECHNIQUE: Portable AP portable view of the chest was obtained. 5:29 AM FINDINGS: No significant abnormality is noted involving the heart, lungs, mediastinum, bony thorax or soft tissues. IMPRESSION: No acute abnormality of the chest. SERVICE DATE: 02/23/17 EXAM TYPE: CARD - ECHOCARDIOGRAM CHILANGO PEÑALOZA Age: 77 : 1940 Gender: M Exam Date: 02/23/2017 09:26 Exam Location: [facility] Ht (in): 64 Wt (lb): 194 BSA: 2.03 BP: 123 / 79 Ordering Physician: RAFIA BEAN MD Referring Physician: Isa Rose MD Technologist: Bekah Bruno [facility] Room Number: 105 Indications: CHEST PAIN Rhythm: Sinus Technical Quality: Fair FINDINGS Left Ventricle Normal size left ventricle. Mild concentric left ventricular hypertrophy. No obvious regional wall motion abnormalities. Normal left ventricular ejection fraction visually estimated at >65%. Abnormal relaxation filling pattern of the left ventricle for age (stage 1 diastolic dysfunction). Right Ventricle Normal right ventricular size and function. Right Atrium Normal right atrial size. Left Atrium Normal left atrial size. Mitral Valve Mildly calcified mitral valve annulus. Mitral valve leaflets structurally normal. Mild mitral regurgitation. Aortic Valve Trileaflet aortic valve. Mild aortic sclerosis. No aortic valve stenosis or regurgitation. Tricuspid Valve Structurally normal tricuspid valve. No tricuspid regurgitation. Unable to estimate the right ventricular systolic pressure. Pulmonic Valve Pulmonic valve not well visualized, grossly normal. Trace pulmonic regurgitation. Pericardium No pericardial effusion. Great Vessels Normal size aortic root. Mildly dilated proximal ascending aorta (tube). Normal size inferior vena cava. CONCLUSIONS Normal size left ventricle. Mild concentric left ventricular hypertrophy. No obvious regional wall motion abnormalities. Normal left ventricular ejection fraction visually estimated at > 65%. Abnormal relaxation filling pattern of the left ventricle for age (stage 1 diastolic dysfunction). Normal right ventricular size and function. Normal atrial size. Mild mitral regurgitation. Unable to estimate the right ventricular systolic pressure. Trace pulmonic regurgitation. Mildly dilated proximal ascending aorta (tube). Isa Rose M.D. (Electronically Signed) Final Date: 23 February 2017 23:37 MEASUREMENTS (Male / Female) Normal Values 2D ECHO LV Diastolic Diameter PLAX 4.6 cm 4.2 - 5.9 / 3.9 - 5.3 cm LV Systolic Diameter PLAX 2.8 cm 2.1 - 4.0 cm LV Fractional Shortening PLAX 39.1 % 25 - 46 % LV Ejection Fraction 2D Teich 69.6 % IVS Diastolic Thickness 1.3 cm IVS Systolic Thickness 1.4 cm LV Relative Wall Thickness 0.5 RV Internal Dim ED PLAX 2.5 cm 1.9 - 3.8 cm LVOT Diameter 1.9 cm Aortic Root Diameter 3.2 cm LA Systolic Diameter LX 3.2 cm 3.0 - 4.0 / 2.7 - 3.8 cm LA Volume 35.0 cm 18 - 58 / 22 - 52 cm Ascending Aorta Diameter 3.9 cm IVC Diameter Inspiration 1.3 cm DOPPLER AV Peak Velocity 135.0 cm/s AV Peak Gradient 7.3 mmHg AV Mean Velocity 98.1 cm/s AV Mean Gradient 4.0 mmHg AV Velocity Time Integral 27.0 cm LVOT Peak Velocity 119.0 cm/s LVOT Peak Gradient 5.7 mmHg LVOT Mean Velocity 79.2 cm/s LVOT Mean Gradient 3.0 mmHg LVOT Velocity Time Integral 22.9 cm LVOT Stroke Volume 64.9 cm AV Area Cont Eq vti 2.4 cm AV Area Cont Eq pk 2.5 cm MV Peak Velocity 108.0 cm/s MV Peak Gradient 4.7 mmHg MV Mean Velocity 61.9 cm/s MV Mean Gradient 2.0 mmHg Mitral E Point Velocity 80.9 cm/s Mitral A Point Velocity 99.2 cm/s Mitral E to A Ratio 0.8 MV PHT Velocity 96.2 cm/s MV Deceleration [place] 335.0 cm/s MV Pressure Half Time 86.1 ms MV Area PHT 2.6 cm MV Deceleration Time 261.0 ms PV Peak Velocity 121.0 cm/s PV Peak Gradient 5.9 mmHg PV Mean Velocity 78.0 cm/s PV Mean Gradient 3.0 mmHg PV Velocity Time Integral 21.5 cm LV E' Lateral Velocity 9.9 cm/s Mitral E to LV E' Lateral Ratio 8.2 LV E' Septal Velocity 6.2 cm/s Mitral E to LV E' Septal Ratio 13.0 DICTATED BY: ISA ROSE MD DATE/TIME DICTATED:02/23/172336 DUKEY RIDER:SISI DATE/TIME TRANSCRIBED:02/23/172336 CONFIDENTIAL, DO NOT COPY WITHOUT APPROPRIATE AUTHORIZATION. <Electronically signed in Other Vendor System> SIGNED BY: ISA ROSE MD 02/23/172336 Pertinent Lab Results: Orders Procedure Date/time Status CBC WITHOUT DIFFERENTIAL 02/25 0500 Active Nothing by Mouth 02/24 B Active PARTIAL THROMBOPLASTIN TIME 02/24 1800 Active Hemoccult 02/24 0633 Active PARTIAL THROMBOPLASTIN TIME 02/24 0600 Complete ICU LAB BUNDLE 02/24 0500 Complete CBC WITHOUT DIFFERENTIAL 02/24 0500 Complete PARTIAL THROMBOPLASTIN TIME 02/23 1800 Complete CBC WITHOUT DIFFERENTIAL 02/23 0600 Complete EKG 02/23 0552 Active ICU LAB BUNDLE 02/23 0500 Complete PARTIAL THROMBOPLASTIN TIME 02/23 0404 Complete OXYGEN 02/23 UNK Complete OXYGEN DAILY CHARGE 02/23 UNK Complete Transfer patient to 02/23 UNK Active Heart Healthy Diet 02/22 L Complete TROPONIN LEVEL 02/22 2200 Complete EKG 02/22 2200 Active PARTIAL THROMBOPLASTIN TIME 02/22 2100 Complete Pathway - chart 02/22 1925 Active House Staff 02/22 1925 Active Code Status 02/22 1925 Active TROPONIN LEVEL 02/22 1600 Complete EKG 02/22 1600 Active PARTIAL THROMBOPLASTIN TIME 02/22 1309 Complete TROPONIN LEVEL 02/22 1000 Complete LIPID PANEL 02/22 1000 Complete EKG 02/22 1000 Active Code Status 02/22 0936 Complete THERAPIST ORDERS 02/22 0924 Complete RT: Reevaluation 02/22 0920 Complete RT: Evaluation 02/22 0920 Active Heparin Drip- ACS 02/22 0909 Active Pathway - chart 02/22 0903 Active Wound Care/Dressing 02/22 0824 Complete Turn and Reposition 02/22 0824 Active Drains/Tubes 02/22 0824 Complete Teach/Educate 02/22 0824 Active Skin Integrity Protocol 02/22 0824 Active Skin/Pressure Ulcer Assess (Sk 02/22 0824 Active Precautions 02/22 0824 Active Pain Treatment and Response 02/22 0824 Active Nutritional Intake, Monitor 02/22 0824 Active Isolation 02/22 0824 Active CIWA 02/22 0824 Complete Patient Care Conference 02/22 0824 Active Activity/Ambulation 02/22 0824 Active VRE ACTIVE SURVIELLANCE 02/22 0814 Complete ACTIVE SURVEILLANCE NARES 02/22 0814 Complete Intake & Output 02/22 0803 Active Pathway - chart 02/22 0739 Active Code Status 02/22 0739 Complete Patient Data 02/22 0703 Active Admit to inpatient 02/22 0700 Active Weight 02/22 0647 Active Add-on Test (ER Only) 02/22 0523 Active EKG 02/22 0521 Active D-DIMER 02/22 0511 Complete TROPONIN LEVEL 02/22 0454 Complete PARTIAL THROMBOPLASTIN TIME 02/22 0454 Complete PROTHROMBIN TIME 02/22 0454 Complete COMPREHENSIVE METABOLIC PANEL 02/22 0454 Complete CBC WITHOUT DIFFERENTIAL 02/22 0454 Complete B-TYPE NATRIURETIC PEP (BNP) 02/22 0454 Complete EKG 02/22 0451 Active TROPONIN LEVEL 02/22 0400 Complete TRC EVALUATION (GEN) 02/22 UNK Complete Pathway - chart 02/22 UNK Active House Staff 02/22 UNK Active VTE Mechanical Prophylaxis 02/22 UNK Complete VTE Mechanical Prophylaxis 02/22 UNK Active Vital Signs 02/22 UNK Active Nursing Misc 02/22 UNK Active CASE MANAGEMENT CONSULT 02/22 UNK Active Disposition Summary Disposition Principal Diagnosis: NSTEMI Additional Diagnosis: HTN COPD Discharge Disposition: [facility] Discharge Instructions General Discharge Information Code Status: Full Code Patient's Diet: NPO Patient's Activity: As tolerated. Follow-Up Instructions/Appts: Follow-up with the cardiology and primary care practitioner on discharge. Please continue to take a hypertension medication as directed. Medications at Discharge Discharge Medications: Stop taking the following medications: Losartan (Cozaar) 100 MG TABLET ORAL DAILY Aspirin (Aspirin*) 325 MG TABLET ORAL DAILY Continue taking these medications: Albuterol Sulfate (Proair Hfa) 0.09 MG/Actuation KILO 0.9 ORAL NEEDED as needed for SOB Qty = 85 Tiotropium [place] (Spiriva) 18 MCG CAP.W.DEV 1 Capsule Inhale through mouth DAILY Comments: Last Taken:02/24/17 Time:0926 AM Budesonide/Formoterol Fumarate (Symbicort 160-4.5 Mcg Inhaler) 160 MCG-4.5 MCG/ ACTUATION HFA.AER.AD 2 Puff Inhale through mouth TWICE DAILY Comments: Last Taken:02/24/17 Time:0926 AM Start taking the following new medications: Clopidogrel Bisulfate (Plavix) 75 MG TABLET 75 Milligram ORAL DAILY Qty = 60 No Refills Instructions: To be taken for 1 year Comments: Last Taken:02/24/17 Time: 1044 AM Atorvastatin Calcium (Atorvastatin Calcium) 40 MG TABLET 40 Milligram ORAL 5 PM Qty = 30 No Refills Comments: Last Taken:02/23/17 Time:1629 Metoprolol Succinate (Metoprolol Succinate) 25 MG TAB 6.25 Milligram ORAL TWICE DAILY Qty = 60 No Refills Comments: Last Taken:02/24/17 Time: 0925 AM Losartan Potassium (Losartan Potassium) 50 MG TABLET 50 Milligram ORAL DAILY Qty = 30 No Refills Comments: Last Taken:02/24/17 Time: 1044 AM Aspirin (Ecotrin*) 81 MG TABLET. 81 Milligram ORAL DAILY Qty = 30 No Refills Comments: Last Taken:02/24/17 Time: 0924 AM Omeprazole (Omeprazole) 20 MG CAPSULE. 40 Milligram ORAL DAILY BEFORE BREAKFAST Qty = 30 No Refills Comments: Last Taken:02/24/17 Time: 0709 AM Heparin (Heparin-1/2NS 25,000 Units/500) 25,000 UNIT/500 ML (50 UNIT/ML) IV.SOLN 13.6 Unit INTRAVEN CONTINUOUS INFUSION Days = 1 No Refills Instructions: 13.5 units/kg/hour Comments: LAST PTT DRAWN AT 02/24/17 @ 0610 AM WAS THERAPEUTIC AT 69 HEPARIN GTT (25,000 U/500 ML 1/2 NS) MAINTAINED FOR 12 HOURS PER OUR PROTOCOL AT 23.6 MLS/HR OR 13.4 UNITS/KG/HR THROUGH A #20 TO THE RF 02/22/17 Copies To: ROSE LEON,ISA Gomez; ZENON LEON,LYSSA Gomez Attending MD Review Statement Documenting Attending: DEBBI LEON,REJI
--- NOTE | 2017-02-24 16:46 | NUR ---
PATIENT D/C'D AT 1552 WITH [facility] TO GO TO 3 EAST ROOM 306 AND NOT TO THE DICTATING MACHINE TYPIST. REPORT GIVEN TO MARIAH HERNANDEZ ON THE 3 EAST FLOOR AT 1519. SPOKE TO [facility] AT [facility] AT 1523 AND CONFIRMED PATIENT TO COME TO FLOOR. PATIENT DENIES PAIN UPON LEAVING, VSS, LEFT ON 2L NASAL CANNULA AND HEPARIN GTT. GIVEN EMOTIONAL REASSURANCE AND INFORMED OF TRANSFER PROCESS/LOCATION TO MEET.
== END 2017-02-24 15:52 | disposition short-term general hospital (02) | DRG 282 ==
LOC: ENRESERVTM → ENRESERVDT → ERH 04:50 → CRI 07:00 → ERHI 07:00 → CRI 08:20
PROVIDERS: Internal Medicine; Pediatrics; Student in an Organized Health Care Education/Training Program; ADMIT Hospitalist
DX: I21.4 Non-ST elevation (NSTEMI) myocardial infarction (principal); J44.9 Chronic obstructive pulmonary disease, unspecified; I10 Essential (primary) hypertension; K21.9 Gastro-esophageal reflux disease without esophagitis; F17.210 Nicotine dependence, cigarettes, uncomplicated; E66.9 Obesity, unspecified; Z68.33 Body mass index [BMI] 33.0-33.9, adult
CPT/HCPCS: CCU; 36415; 82436; 93005; 93010; 93306; J1644; J3490; J7042

== ENCOUNTER 2017-05-27 10:54 | Emergency (ER) | payer OTHER ==
[~2017-05-27] VITALS: Ht 165.1 cm; Wt 86.2 kg
[~2017-05-27 10:54] MED LIST changes: +ASPIRIN EC81 M1 PO; +ASPIRIN325 M2 PO; +ATORVASTATIN CA40 M1 PO; +COZAAR100 M1 PO; +HEPARIN-1/25000 UNI1 IV; +LOSARTAN POTASS50 M1 PO; +METOPROLOL SUCC25 M1 PO; +OMEPRAZOLE20 M2 PO; +PLAVIX75 M1 PO; +SPIRIVA18 MCG INH; +SYMBICORT 16010.2 GM INH
[2017-05-27] MEDS ORDERED: LOSARTAN POTAS100 M1 PO (11:23)
[2017-05-27 11:25] LABS: ABSOLUTE BASOPHIL COUNT 0.1 /CUMM (0.0-0.2); ABSOLUTE EOSINOPHIL COUNT 0.4 /CUMM (0.0-0.7); ABSOLUTE GRANULOCYTE CT 7.1 /CUMM (1.4-6.5); ABSOLUTE MONOCYTE COUNT 1.1 /CUMM (0.10-0.60); BASOPHIL % 0.6 % (0.0-2.0); EOSINOPHIL % 3.5 % (0-5); GRANULOCYTE % 66.7 % (42.2-75.2); HEMATOCRIT 47.2 % (42-52); MEAN CORPUSCULAR HGB 30.9 PG (27.0-31.0); MEAN CORPUSCULAR HGB CONC 33.9 G/DL (33.0-37.0); MEAN CORPUSCULAR VOLUME 91.3 FL (80.0-94.0); MEAN PLATELET VOLUME 8.5 FL (7.4-10.4); PLATELET COUNT 297 /CUMM (130-400); RED BLOOD CELL CT 5.17 /CUMM (4.70-6.10); WHITE BLOOD CELL COUNT 10.7 /CUMM (4.8-10.8)
--- NOTE | 2017-05-27 11:31 | ED DYSPNEA/ASTHMA COMPLAINT ---
History of Present Illness General Chief Complaint: Dyspnea (COPD, CHF, Other) Stated Complaint: SOB HX COPD Source: patient Exam Limitations: no limitations Vital Signs & Intake/Output Vital Signs & Intake/Output Vital Signs Date Time Temp Pulse Resp B/P B/P Pulse O2 O2 Flow FiO2 Mean Ox Delivery Rate 05/27 1648 96.0 95 22 154/93 91 Room Air 05/27 1500 96.1 81 23 136/87 92 Room Air 05/27 1456 77 18 94 Room Air 05/27 1254 16 94 Nasal 2.0L Cannula 05/27 1253 97.0 82 16 133/82 91 Room Air 05/27 1209 97 Nasal 3.0L Cannula 05/27 1136 86 16 96 Nasal 2.0L Cannula 05/27 1135 91 Room Air 05/27 1109 97.6 87 22 145/87 91 Room Air ED Intake and Output 05/28 0000 05/27 1200 Intake Total Output Total Balance Patient 190 lb Weight Weight Reported by Patient Measurement Method Allergies Coded Allergies: No Known Allergies (02/22/17) Reconcile Medications Albuterol Sulfate (Proair Hfa) 90 MCG HFA.AER.AD 2 PUF INH Q4-6 PRN PRN COPD (Reported) Aspirin (Ecotrin*) 81 MG TABLET.DR 81 MG PO DAILY NSTEMI Clopidogrel Bisulfate (Plavix) 75 MG TABLET 75 MG PO DAILY NSTEMI To be taken for 1 year Losartan Potassium 100 MG TABLET 1 TAB PO DAILY HTN (Reported) Prednisone 10 MG TABLET 1 TAB PO AD COPD 4 TABS DAYS 1-3 3 TABS DAYS 4-6 2 TABS DAYS 7-9 1 TAB DAYS 10-12 Tiotropium [place] (Spiriva) 18 MCG CAP.W.DEV 1 CAP INH DAILY COPD (Reported) Triage Note: REPORTS SLIGHT DISCOMFORT ON HIS CHEST WITH DIFFICULTY BREATHING, + HX OF COPD. HE HAD A CARDIAC STENT IMPLANTED ON 02/24/17. LAST FRIDAY HE WAS AT HOME DEPOT HE HE EXPERIENCED SUDDEN WORSENING OF SOB AND LOST CONTROL OF HIS URINE WITH + DIZZINES. Triage Nurses Notes Reviewed? yes Onset: Abrupt Duration: week(s): (1), constant, continues in ED Timing: recent history Severity: severe HPI: 77-year-old male comes into emergency room with complaints of shortness of breath. Patient has a history of COPD and had a recent stent placed 11 weeks ago for a non-STEMI. Patient reports that for the past week he's been feeling very short with exertion. Patient will walk 25-30 feet and feel out of breath and then after he rests his symptoms improved. Denies any chest pain. Denies any diaphoresis dizziness lightheadedness. Denies any vomiting. Denies any productive cough fever chills. Exertion makes his symptoms worsen rest makes his symptoms better. Patient is not on oxygen at home. He admits to still smoking on a daily basis. (PINO GARCIA) Past History Travel History Traveled to [place] past 21 day No Medical History Any Pertinent Medical History? see below for history Neurological: NONE EENT: NONE Cardiovascular: hypertension, myocardial infarction, STENT Respiratory: COPD Gastrointestinal: GERD Hepatic: NONE Renal: NONE Musculoskeletal: NONE Psychiatric: NONE Endocrine: NONE Blood Disorders: NONE Cancer(s): NONE BEAMING INSPECTOR/Reproductive: NONE History of MRSA: No History of VRE: No History of CDIFF: No Influenza Vaccine: 08/17/16 Surgical History Surgical History: none Psychosocial History Who do you live with Spouse Services at Home None What is your primary language Mauritian Tobacco Use: Quit >30 days ago Family History Family History, If Any: Relation not specified for: Unknown family medical history Hx Contributory? No (PINO GARCIA) Review of Systems Review of Systems Constitutional: Reports: no symptoms. EENTM: Reports: no symptoms. Respiratory: Reports: see HPI. Cardiovascular: Reports: no symptoms. GI: Reports: no symptoms. Genitourinary: Reports: no symptoms. Musculoskeletal: Reports: no symptoms. Skin: Reports: no symptoms. Neurological/Psychological: Reports: no symptoms. Hematologic/Endocrine: Reports: no symptoms. Immunologic/Allergic: Reports: no symptoms. All Other Systems: Reviewed and Negative (PINO GARCIA) Physical Exam Physical Exam General Appearance: well developed/nourished, alert, awake Head: atraumatic Eyes: Bilateral: normal appearance. Ears, Nose, Throat: normal ENT inspection, hearing grossly normal Neck: normal inspection Respiratory: no respiratory distress, decreased breath sounds Cardiovascular: regular rate/rhythm Extremities: normal inspection, normal range of motion Neurologic/Psych: awake, alert, oriented x 3, normal gait Skin: intact, normal color Core Measures ACS in differential dx? Yes Severe Sepsis Present: No Septic Shock Present: No (PINO GARCIA) Progress Differential Diagnosis: asthma, AMI, bronchitis, costochondritis, CHF, COPD, musculoskeletal pain, pericarditis, pulmonary embolism, pneumonia, pneumothorax, rib fracture, unstable angina Plan of Care: Orders Procedure Date/time Status TROPONIN LEVEL 05/27 1515 Complete EKG 05/27 1515 Active AEROSOL (GEN) 05/27 1147 Complete TROPONIN LEVEL 05/27 1109 Complete MAGNESIUM 05/27 1109 Complete COMPREHENSIVE METABOLIC PANEL 05/27 1109 Complete CHOLESTEROL 05/27 1109 Complete CBC WITHOUT DIFFERENTIAL 05/27 1109 Complete EKG 05/27 1059 Active Laboratory Tests 05/27/17 1540: Troponin I < 0.01 05/27/17 1115: Anion Gap 8, Estimated GFR > 60, BUN/Creatinine Ratio 27.1 H, Glucose 97, Calcium 8.0 L, Magnesium 1.8, Total Bilirubin 0.3, AST 12 L, ALT 25, Alkaline Phosphatase 77, Troponin I < 0.01, Total Protein 5.6 L, Albumin 3.3 L, Globulin 2.3, Albumin/Globulin Ratio 1.4, Cholesterol 135, CBC w Diff NO MAN DIFF REQ, RBC 5.17, MCV 91.3, MCH 30.9, RDW 14.0, MPV 8.5, Gran % 66.7, Lymphocytes % 19.1 L, Monocytes % 10.1 H, Eosinophils % 3.5, Basophils % 0.6, Absolute Granulocytes 7.1 H, Absolute Lymphocytes 2.0, Absolute Monocytes 1.1 H, Absolute Eosinophils 0.4, Absolute Basophils 0.1, PUBS MCHC 33.9 Diagnostic Imaging: Viewed by Me: Radiology Read. Discussed w/RAD: Radiology Read. Radiology Impression: PATIENT: CHILANGO PEÑALOZA PRESENT AGE: 77 PATIENT ACCOUNT NO: [id number] : 41 LOCATION: [facility] ORDERING PHYSICIAN: FLORY STONE DO (TBS) SERVICE DATE: 05/27/17 EXAM TYPE: RAD - XRY-PORTABLE CHEST XRAY EXAMINATION: XR PORTABLE CHEST CLINICAL INFORMATION: Decreasing shortness of breath. Chest discomfort. COMPARISON: Chest 02/22/2017. TECHNIQUE: Portable frontal view of the chest was obtained. FINDINGS: Lungs are well-expanded and clear acute process. The heart size and pulmonary vascularity is normal. No gross bony abnormality seen. IMPRESSION: Unremarkable chest exam. No change from 02/22/2017 exam. DICTATED BY: CLEMENTE OJEDA MD DATE/TIME DICTATED: 05/27/171210 CONCHE LOADER AND UNLOADER:SISI DATE/TIME TRANSCRIBED:05/27/171210 CONFIDENTIAL, DO NOT COPY WITHOUT APPROPRIATE AUTHORIZATION. <Electronically signed in Other Vendor System> SIGNED BY: CLEMENTE OJEDA MD 05/27/171216 Initial ED EKG: normal intervals, normal p-waves, normal sinus rhythm, rate (87) Repeat EKG: unchanged (PINO GARCIA) Departure Departure Disposition: HOME OR SELF CARE Condition: Stable Clinical Impression Primary Impression: COPD (chronic obstructive pulmonary disease) Referrals: ZENON LEON,LYSSA Gomez (PCP/Family) Additional Instructions: Take prednisone as prescribed. Follow-up with your financial aid coordinator this week as well as follow-up with your agile coach. Return if any concerns worsening symptoms. Please go over all results of today's visit with your primary care doctor. Contact your primary care doctor to let them know you were here in the emergency room. There may be nonspecific findings which may not be related to your visit today here in the emergency room but may require further evaluation and chronic monitoring by your primary care doctor. If you had a laceration today the chance of foreign body always remains. You should follow-up with your primary care doctor for recheck in 3-5 days for a wound check. If you had an x-ray done there is a chance that a fracture could have been missed on initial read and you should follow-up with your primary care doctor for repeat x-rays if symptoms persist. If your blood pressure was elevated here in the emergency room please have rechecked by her primary care doctor within the next 48 hours by your primary care doctor. If you were prescribed a narcotic here in the emergency room or any type of controlled substances you're not allowed to drive while taking this medication or operate any type of heavy machinery. Narcotics can make you feel lightheaded dizziness nausea and can cause constipation. You may need to picker / packer a stool softener. Thank you for choosing [facility] emergency room. Please return to the emergency room immediately if you have any other concerns worsening of symptoms. Departure Forms: Customer Survey General Discharge Information Prescriptions: Current Visit Scripts Prednisone 1 TAB PO AD #30 TAB 4 TABS DAYS 1-3 3 TABS DAYS 4-6 2 TABS DAYS 7-9 1 TAB DAYS 10-12 Comments 05/27/2017 7:41:59 PM Patient has clinically looked well here in the emergency room. He is in no apparent distress upon discharge. Patient's ambulatory O2 saturation was 94% up and down the hallway. He has two unchanged EKGs and 2 normal troponins. I spoke with Dr. Layne about plan of care and he agrees with plan of care to EKGs and 2 troponins and discharge and follow-up with him this week. Symptoms are likely more consistent with COPD. Patient does not meet criteria for home oxygen. Patient started on oral prednisone. Feels better after breathing treatment. Return if any concerns worsening symptoms. Case discussed with Dr. garcia. (PINO GARCIA) PA/DRIVER EDUCATION INSTRUCTOR Co-Sign Statement Statement: ED Attending supervision documentation- x I saw and evaluated the patient. I have also reviewed all the pertinent lab results and diagnostic results. I agree with the findings and the plan of care as documented in the PA's/DRIVER EDUCATION INSTRUCTOR's documentation. [] I have reviewed the ED Record and agree with the PA's/DRIVER EDUCATION INSTRUCTOR's documentation. [] Additions or exceptions (if any) to the PAs/DRIVER EDUCATION INSTRUCTOR's note and plan are summarized below: [] (KERRI LEON,KENN) Critical Care Note Critical Care Note Critical Care Time: non-applicable (PINO GARCIA)
[2017-05-27] MEDS ORDERED: PROAIR HFA8.5 GM INH (11:33)
--- NOTE | 2017-05-27 12:17 | RADIOLOGY REPORT ---
EXAMINATION: XR PORTABLE CHEST CLINICAL INFORMATION: Decreasing shortness of breath. Chest discomfort. COMPARISON: Chest 02/22/2017. TECHNIQUE: Portable frontal view of the chest was obtained. FINDINGS: Lungs are well-expanded and clear acute process. The heart size and pulmonary vascularity is normal. No gross bony abnormality seen. IMPRESSION: Unremarkable chest exam. No change from 02/22/2017 exam.
[2017-05-27 16:48] VITALS: BP 154/93
[2017-05-27] MEDS ORDERED: PREDNISONE10 M2 PO (16:48)
== END 2017-05-27 16:54 ==
LOC: ERH 10:54
PROVIDERS: Emergency Medicine
DX: J44.9 Chronic obstructive pulmonary disease, unspecified (principal); Z87.891 Personal history of nicotine dependence; R07.89 Other chest pain
CPT/HCPCS: 1263; 93005; 93010; 96374; J2930

== ENCOUNTER 2017-11-24 13:10 | Emergency (ER) | payer OTHER ==
[~2017-11-24] VITALS: Ht 163.8 cm; Wt 86.6 kg
[~2017-11-24 13:10] MED LIST changes: +AMLODIPINE BES2.5 M1 PO; +LOSARTAN POTAS100 M1 PO; +PREDNISONE10 M2 PO; +PREDNISONE20 M1 PO; +PROAIR HFA8.5 GM INH
[2017-11-24 13:39] LABS: ABSOLUTE BASOPHIL COUNT 0.1 /CUMM (0.0-0.2); ABSOLUTE EOSINOPHIL COUNT 0 /CUMM (0.0-0.7); ABSOLUTE GRANULOCYTE CT 13.8 /CUMM (1.4-6.5); ABSOLUTE LYMPH COUNT 0.7 /CUMM (1.2-3.4); ABSOLUTE MONOCYTE COUNT 0.4 /CUMM (0.10-0.60); BASOPHIL % 0.9 % (0.0-2.0); EOSINOPHIL % 0 % (0-5); HEMATOCRIT 46.2 % (42-52); MEAN CORPUSCULAR HGB 31.1 PG (27.0-31.0); MEAN CORPUSCULAR VOLUME 91.5 FL (80.0-94.0); MEAN PLATELET VOLUME 8.8 FL (7.4-10.4); RBC DISTRIBUTION WIDTH 14.2 % (11.5-14.5); RED BLOOD CELL CT 5.05 /CUMM (4.70-6.10)
[2017-11-24 13:49] LABS: PT 10.9 SEC (9.4-12.5); PTT 29 SEC (25-37)
[2017-11-24 14:02] LABS: PLATELET COUNT 366 /CUMM (130-400)
--- NOTE | 2017-11-24 16:47 | ED GI/GU/ABDOMINAL COMPLAINT ---
History of Present Illness General Chief Complaint: General Adult Stated Complaint: RECTAL BLEEDING Source: patient Exam Limitations: no limitations Vital Signs & Intake/Output Vital Signs & Intake/Output Vital Signs Date Time Temp Pulse Resp B/P B/P Pulse O2 O2 Flow FiO2 Mean Ox Delivery Rate 11/24 1706 87 137/83 11/24 1621 98.1 102 18 163/93 96 Room Air 11/24 1320 98.0 112 18 138/88 95 Room Air Allergies Coded Allergies: No Known Allergies (02/22/17) Reconcile Medications Albuterol Sulfate (Proair Hfa) 90 MCG HFA.AER.AD 2 PUF INH Q4-6 PRN PRN COPD (Reported) Amlodipine Besylate 2.5 MG TABLET 1 TAB PO DAILY BP (Reported) Aspirin (Ecotrin*) 81 MG TABLET.DR 81 MG PO DAILY NSTEMI Clopidogrel Bisulfate (Plavix) 75 MG TABLET 75 MG PO DAILY NSTEMI To be taken for 1 year Losartan Potassium 100 MG TABLET 1 TAB PO DAILY HTN (Reported) Prednisone 20 MG TABLET 1 TAB PO AD STEROID 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 STATES THAT HE HAD 2 EPSIODES OF A LOT OF BLOOD THIS AM. DENIES SOB/CP Triage Nurses Notes Reviewed? yes Onset: Abrupt Duration: day(s): (2), better Timing: recent history HPI: 77-year-old male comes into the emergency room with complaints of painless rectal bleeding is been going on for the past few days. Patient reports bright red blood in the toilet. Denies any abdominal pain. Denies any fever chills vomiting. Denies any prior colonoscopy. Nothing seems to make the symptoms better or worse. Denies any other associated symptoms. Patient was seen here in the emergency room yesterday and had a CAT scan done and blood work. Patient decided that he wanted to go home. He comes in for further evaluation. (Pablo HERNANDEZ,Isac) Past History Travel History Traveled to [place] past 21 day No Medical History Any Pertinent Medical History? 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 No (Isac Steven) Review of Systems Review of Systems Constitutional: Reports: no symptoms. EENTM: Reports: no symptoms. Respiratory: Reports: no symptoms. Cardiovascular: Reports: no symptoms. GI: Reports: see HPI. Genitourinary: Reports: no symptoms. Musculoskeletal: Reports: no symptoms. Skin: Reports: no symptoms. Neurological/Psychological: Reports: no symptoms. Hematologic/Endocrine: Reports: see HPI. Immunologic/Allergic: Reports: no symptoms. All Other Systems: Reviewed and Negative (Isac Steven) Physical Exam Physical Exam General Appearance: well developed/nourished, no apparent distress, alert, awake Head: atraumatic, normal appearance Eyes: Bilateral: normal appearance. Ears, Nose, Throat, Mouth: hearing grossly normal, moist mucous membrane Neck: normal inspection Respiratory: normal breath sounds, no respiratory distress Cardiovascular: regular rate/rhythm Gastrointestinal: soft, non-tender Rectal: bloody stool (BRIGHT RED) Back: normal inspection Extremities: normal range of motion Neurologic/Psych: awake, alert, oriented x 3, normal gait Skin: intact, normal color Core Measures ACS in differential dx? No Sepsis Present: No Sepsis Focused Exam Completed? No (Isac Steven) Progress Differential Diagnosis: colon cancer, diverticulitis, gastritis, hemorrhoids, ischemic bowel, inflamm bowel dis, prostatitis Plan of Care: Orders Procedure Date/time Status PARTIAL THROMBOPLASTIN TIME 11/24 1314 Complete PROTHROMBIN TIME 11/24 1314 Complete COMPREHENSIVE METABOLIC PANEL 11/24 1314 Complete CBC WITHOUT DIFFERENTIAL 11/24 131 Complete TYPE & SCREEN (NOT X-MATCH) 11/24 131 Complete Laboratory Tests 11/24/17 1331: Anion Gap 17 H, Estimated GFR > 60, BUN/Creatinine Ratio 26.4 H, Glucose 310 H, Calcium 10.1, Total Bilirubin 0.3, AST 17, ALT 32, Alkaline Phosphatase 105, Total Protein 7.0, Albumin 4.4, Globulin 2.6, Albumin/Globulin Ratio 1.7, PT 10.9, INR 1.04, APTT 29, CBC w Diff NO MAN DIFF REQ, RBC 5.05, MCV 91.5, MCH 31.1 H, RDW 14.2, MPV 8.8, Gran % 92.0 H, Lymphocytes % 4.6 L, Monocytes % 2.5, Eosinophils % 0, Basophils % 0.9, Absolute Granulocytes 13.8 H, Absolute Lymphocytes 0.7 L, Absolute Monocytes 0.4, Absolute Eosinophils 0, Absolute Basophils 0.1, PUBS MCHC 34.0 Initial ED EKG: none (Pablo HERNANDEZ,Isac) Departure Departure Disposition: HOME OR SELF CARE Condition: Stable Clinical Impression Primary Impression: Rectal bleeding Referrals: Breanna LEON,Janette Ma (PCP/Family) Additional Instructions: 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 Return if any concerns worsening symptoms. Return if any abdominal pain, fever, vomiting, increased bleeding, or any other concerns. Please go over all results of today's visit with your primary care doctor. Contact your primary care doctor to let them know you were here in the emergency room. There may be nonspecific findings which may not be related to your visit today here in the emergency room but may require further evaluation and chronic monitoring by your primary care doctor. If you had a laceration today the chance of foreign body always remains. You should follow-up with your primary care doctor for recheck in 3-5 days for a wound check. If you had an x-ray done there is a chance that a fracture could have been missed on initial read and you should follow-up with your primary care doctor for repeat x-rays if symptoms persist. If your blood pressure was elevated here in the emergency room please have rechecked by [facility] primary care doctor within the next 48. If you were prescribed a narcotic here in the emergency room or any type of controlled substances you're not allowed to drive while taking this medication or operate any type of heavy machinery. Narcotics can make you feel lightheaded dizziness nausea and can cause constipation. You may need to lease picker a stool softener. Thank you for choosing [facility] emergency room. Please return to the emergency room immediately if you have any other concerns worsening of symptoms. Departure Forms: Customer Survey General Discharge Information Comments Patient had some gross blood on rectal exam however he is hemodynamically stable with a normal H&H. Patient had a normal H&H yesterday. The bleeding only occurs with the bowel movement. There is no gross amount of blood. Small amount of blood. Patient will follow up with GI as an outpatient for colonoscopy. White count was slightly elevated yesterday within normal CT scan. Patient has never had a colonoscopy before.: colon cancer would be considered in the differential to be ruled out but that has to be done by colonoscopy and can be done as an outpatient at this time. Return immediately if any other concerns worsening symptoms. Case was discussed with Dr. catalan and she udnertsnads/agrees with plan. Patient understands and agrees with plan of care. (Isac Steven) PA/EDI ARCHITECT Co-Sign Statement Statement: ED Attending supervision documentation- [] I saw and evaluated the patient. I have also reviewed all the pertinent lab results and diagnostic results. I agree with the findings and the plan of care as documented in the PA's/EDI ARCHITECT's documentation. [X] I have reviewed the ED Record and agree with the PA's/EDI ARCHITECT's documentation. [] Additions or exceptions (if any) to the PAs/EDI ARCHITECT's note and plan are summarized below: [] ([place] LEON,Sania)
[2017-11-24 17:06] VITALS: BP 137/83
== END 2017-11-24 17:20 ==
LOC: ERH 13:10
PROVIDERS: Physician Assistant
DX: K62.5 Hemorrhage of anus and rectum (principal)

== ENCOUNTER 2018-02-22 10:12 | Inpatient (IN) | payer OTHER ==
[~2018-02-22] VITALS: Ht 165.1 cm; Wt 75.8 kg
--- NOTE | 2018-02-22 10:33 | ED GENERAL ADULT ---
History of Present Illness General Chief Complaint: General Adult Stated Complaint: WEAKNESS Source: patient, family, old records Exam Limitations: no limitations Vital Signs & Intake/Output Vital Signs & Intake/Output Vital Signs Date Time Temp Pulse Resp B/P B/P Pulse O2 O2 Flow FiO2 Mean Ox Delivery Rate 02/22 1204 97.5 79 18 114/63 93 Room Air 02/22 1152 Room Air Room Air 02/22 1016 95.9 98 20 125/71 92 Room Air Room Air Allergies Coded Allergies: No Known Allergies (02/22/17) Reconcile Medications Albuterol Sulfate (Proair Hfa) 90 MCG HFA.AER.AD 2 PUF INH Q4-6 PRN PRN COPD (Reported) Amlodipine Besylate 2.5 MG TABLET 1 TAB PO DAILY BP (Reported) Aspirin (Ecotrin*) 81 MG TABLET.DR 81 MG PO DAILY NSTEMI Clopidogrel Bisulfate (Plavix) 75 MG TABLET 75 MG PO DAILY NSTEMI To be taken for 1 year Losartan Potassium 100 MG TABLET 1 TAB PO DAILY HTN (Reported) Prednisone 20 MG TABLET 1 TAB PO AD STEROID TAPER (Reported) Tiotropium [place] (Spiriva) 18 MCG CAP.W.DEV 1 CAP INH DAILY COPD (Reported) Triage Note: TRIAGE: 78 Y/O MALE PRESENTS C/O WEAKNESS AND 25 POUND WEIGHT LOSS SINCE DECEMBER - PATIENT CONCERNED. HEAVY TOBACCO USE - ROOM AIR SPO2 92%. Triage Nurses Notes Reviewed? yes HPI: Patient states that he had a colonoscopy back in December. Patient states that since then he has been feeling weak. Weak and fatigued and getting more short of breath and occasional chest tightness. Patient denies any chest pain just stating that as a tightness that occurs when he feels short of breath. Patient states he has lost 25 pounds without trying to. Patient was also noticed that he is urinating frequently and drinking a lot more water. Patient denies any headache or lightheadedness. There is no nausea or vomiting. There is no anorexia. There is no constipation or diarrhea. There is no dysuria. He does not currently have any chest pain or chest tightness. He is active smoker has a chronic nonproductive cough. He states it is not worsened lately. Patient has an appointment with his doctor on Friday both felt that he could not wait any longer and wants to know why he is feeling so weak and has had weight loss. Past History Travel History Traveled to [place] past 21 day No Medical History Any Pertinent Medical History? 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 No Review of Systems Review of Systems Constitutional: Reports: see HPI, weakness, unexplained weight loss. EENTM: Reports: no symptoms. Respiratory: Reports: see HPI, cough. Cardiovascular: Reports: no symptoms. GI: Reports: no symptoms. Genitourinary: Reports: no symptoms. Musculoskeletal: Reports: no symptoms. Skin: Reports: no symptoms. Neurological/Psychological: Reports: no symptoms. Hematologic/Endocrine: Reports: no symptoms. Immunologic/Allergic: Reports: no symptoms. All Other Systems: Reviewed and Negative Physical Exam Physical Exam General Appearance: well developed/nourished, alert, awake, anxious, mild distress Head: atraumatic, normal appearance Eyes: Bilateral: PERRL, EOMI. Ears, Nose, Throat: normal pharynx, normal ENT inspection, hearing grossly normal Neck: normal inspection, supple, full range of motion Respiratory: no respiratory distress, rhonchi Cardiovascular: regular rate/rhythm, normal peripheral pulses Gastrointestinal: normal bowel sounds, soft, non-tender, no organomegaly Back: normal inspection, normal range of motion Extremities: normal inspection, normal capillary refill, normal range of motion, no edema Neurologic/Psych: no motor/sensory deficits, awake, alert, oriented x 3, normal gait, normal mood/affect Skin: intact, normal color, warm/dry Lymphatic: no anterior cervical ayo Core Measures ACS in differential dx? Yes CVA/TIA Diagnosis: No Sepsis Present: No Sepsis Focused Exam Completed? No Progress Differential Diagnoses I considered the following diagnoses in my evaluation of the patient: [Pneumonia , cancer, COPD, electrolyte abnormality, AMI] Plan of Care: Orders Procedure Date/time Status LACTIC ACID 02/22 1333 Active Patient Data 02/22 1209 Active Admit to inpatient 02/22 1204 Active XRY-PORTABLE CHEST XRAY 02/22 1129 Active ACETONE 02/22 1100 Complete MIXED VENOUS BLOOD GAS (GEN) 02/22 1058 Active BLOOD CULTURE 02/22 1033 Active URINALYSIS 02/22 1033 Complete TROPONIN LEVEL 02/22 1033 Complete LACTIC ACID 02/22 1033 Complete COMPREHENSIVE METABOLIC PANEL 02/22 1033 Complete CBC WITHOUT DIFFERENTIAL 02/22 1033 Complete EKG 02/22 1033 Active Current Medications Sig/Mary Start time Last Medication Dose Stop Time Status Admin Sodium Chloride 1,000 ML BOLUS ONE 02/22 1115 AC 02/22 (Normal Saline 0.9%) 02/22 121 1130 Sodium Chloride 1,000 ML BOLUS ONE 02/22 1115 AC (Normal Saline 0.9%) 02/22 1214 Sodium Chloride 1,000 ML BOLUS ONE 02/22 1115 AC (Normal Saline 0.9%) 02/22 1214 Laboratory Tests 02/22/18 1148: Urine Color STRAW, Urine Clarity CLEAR, Urine pH 6.0, Ur Specific [place] 1.010, Urine Protein NEG, Urine Ketones 15 H, Urine Nitrite NEG, Urine Bilirubin NEG, Urine Urobilinogen 0.2, Ur Leukocyte Esterase NEG, Ur Microscopic EXAM NOT REQUIRED, Urine Hemoglobin NEG, Urine Glucose >=1000 H 02/22/18 1123: Bicarbonate Actual 16 L, Mixed VBG pH 7.30 L, Mixed VBG pCO2 33 L, Mixed VBG O2 Saturation 50 H, Carboxyhemoglobin 3.3, O2 Concentration % RA, O2 Delivery Method RA, Phlebotomy Draw Site RT 02/22/18 1100: Anion Gap 22 H, Estimated GFR > 60, BUN/Creatinine Ratio 38.2 H, Glucose 731 * H, Lactic Acid 1.6, Calcium 11.5 H, Total Bilirubin 0.6, AST 13 L, ALT 32, Alkaline Phosphatase 223 H, Troponin I < 0.01, Total Protein 6.7, Albumin 4.0, Globulin 2.7, Albumin/Globulin Ratio 1.5, CBC w Diff NO MAN DIFF REQ, RBC 5.73, MCV 90.9, MCH 29.7, MCHC 32.7 L, RDW 12.9, MPV 10.5 H, Gran % 76.4 H, Lymphocytes % 14.9 L, Monocytes % 7.3, Eosinophils % 0.9, Basophils % 0.5, Absolute Granulocytes 7.7 H, Absolute Lymphocytes 1.5, Absolute Monocytes 0.7 H, Absolute Eosinophils 0.1, Absolute Basophils 0.1, Acetone Level POSITIVE AT 1 :8 DIL 02/22/18 1058: Acetone Level Cancelled Microbiology 02/22 1100 BLOOD: Blood Culture - RECD 02/22 1033 BLOOD: Blood Culture - ORD Diagnostic Imaging: Viewed by Me: CT Scan. Discussed w/RAD: CT Scan. Initial ED EKG: NSR, no ST T wave changes Prior EKG: unchanged Comments: FINGERSTICK >500 Daniel Nayak MD has been consult. He will see the patient. Departure Departure Disposition: STILL A PATIENT Condition: Guarded Clinical Impression Primary Impression: DKA (diabetic ketoacidoses) Referrals: Breanna LEON,Janette Ma (PCP/Family) Departure Forms: Customer Survey General Discharge Information Admission Note Spoke With: Maral LEON,Tung Gomez Documentation of Exam: Documentation of any treatments & extenuating circumstances including Concerns Regarding Discharge (functional status, medication knowledge or non-compliance, living conditions, etc.) that warrant an admission rather than observation: [ICU admission, insulin drip, aggressive hydration, endocrine consultation] Critical Care Note Critical Care Note Critical Care Time: mins: (90 MIN) living conditions, etc.) that warrant an admission rather than observation: [ICU admission, insulin drip, aggressive hydration, endocrine consultation] Critical Care Note Critical Care Note Critical Care Time: mins: (90 MIN)
[2018-02-22 11:16] LABS: ABSOLUTE BASOPHIL COUNT 0.1 /CUMM (0.0-0.2); ABSOLUTE EOSINOPHIL COUNT 0.1 /CUMM (0.0-0.7); ABSOLUTE GRANULOCYTE CT 7.7 /CUMM (1.4-6.5); ABSOLUTE LYMPH COUNT 1.5 /CUMM (1.2-3.4); ABSOLUTE MONOCYTE COUNT 0.7 /CUMM (0.10-0.60); BASOPHIL % 0.5 % (0.0-2.0); EOSINOPHIL % 0.9 % (0-5); GRANULOCYTE % 76.4 % (42.2-75.2); HEMATOCRIT 52.1 % (42-52); MEAN CORPUSCULAR HGB 29.7 PG (27.0-31.0); MEAN CORPUSCULAR HGB CONC 32.7 G/DL (33.0-37.0); MEAN CORPUSCULAR VOLUME 90.9 FL (80.0-94.0); MEAN PLATELET VOLUME 10.5 FL (7.4-10.4); PLATELET COUNT 340 /CUMM (130-400); RBC DISTRIBUTION WIDTH 12.9 % (11.5-14.5); RED BLOOD CELL CT 5.73 /CUMM (4.70-6.10)
--- NOTE | 2018-02-22 13:06 | History & Physical ---
Enrrique Hough 02/22/18 1305: General Information and HPI MD Statement: I have seen and personally examined CHILANGO PEÑALOZA and documented this H&P. The patient is a 78 year old M who presented with a patient stated chief complaint of [weakness]. Source of Information: patient, family, old records Exam Limitations: no limitations History of Present Illness: This is 78 year-old man with medical history of COPD not on home oxygen, hypertension, gastroesophageal reflux disease, Campos's esophagus, recent H.pylori postive gastritis, CAD s/p stent(2016). He presented to the emergency department with c/o weakness, weight loss and increase oral intake that lead to increase urine out put. he stated that since he had his EGD and colonoscopy that was done in Dec 2017 due to his ((twice presentation to the ED with a complaint of rectal bleeding)) he started to drink a lot of water with increased urine frequency, also he reports weight loss of 20 pound since then despite his good appetite and oral intake, and since that the generalized weakness, fatigue getting progress. Also, he report blurre vision, he had Rt. cataract in the past and c/o left arm numbness that resolved now. Also in the past 2-3 weeks he start to feel that his chest more tight that associated with mild SOB and wheezing, also his stated that he wheeze at night and morning and it is very mild. but he stated that he did not used his rescue inhaler more than his usual, he deny any chest pain, orthopnea and heart racing, he still report chronic nonproductive cough. he stated that he still report dark stool without fresh blooding, he think it is beccause the medication he was on(Abx). He still actively smoking 1 pack per day for the past 55 years. Also patient stated that an end of January he was started on antibiotic to treat his underlying H. pylori but he stopped taking his antibiotic due to unpleasant mouth taste of the medicaion, he stated that he took 7 days only form the 14 days. Currently patient deny any chest pain, fever, chills, heart racing, orthopnea, abdominal pain, nausea, vomiting, diarrhea, hematuria, dysuria, lower extremity edema. In the ED p.t found to have BS of 731, with anion gap metabolic acidosis. he received 2 L of normal saline boluses, started on insulin drip after receiving 8 units of Novolin IV. Most recent admission to [facility] was in 2017 due to chest pain that was and a NSTEMI the patient was transferred and underwent cardiac cath and 1 stent placement. Most recent echocardiogram was 02/2017 showed ejection fraction of 65%. Allergies/Medications Allergies: Coded Allergies: No Known Allergies (02/22/17) Home Med list Albuterol Sulfate (Proair Hfa) 90 MCG HFA.AER.AD 2 PUF INH Q4-6 PRN PRN COPD (Reported) Amlodipine Besylate 2.5 MG TABLET 1 TAB PO DAILY BP (Reported) Aspirin (Ecotrin*) 81 MG TABLET.DR 81 MG PO DAILY NSTEMI Clopidogrel Bisulfate (Plavix) 75 MG TABLET 75 MG PO DAILY NSTEMI To be taken for 1 year Losartan Potassium 100 MG TABLET 1 TAB PO DAILY HTN (Reported) Tiotropium [place] (Spiriva) 18 MCG CAP.W.DEV 1 CAP INH DAILY COPD (Reported) Past History Travel History Traveled to [place] past 21 day No Medical History Neurological: NONE EENT: NONE Cardiovascular: hypertension, myocardial infarction, STENT Respiratory: COPD Gastrointestinal: GERD Hepatic: NONE Renal: NONE Musculoskeletal: NONE Psychiatric: NONE Endocrine: NONE Blood Disorders: NONE Cancer(s): NONE PROFESSOR 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 Relation not specified for: Unknown family medical history Psychosocial History Services at Home: None Smoking Status: Current Everyday Smoker ETOH Use: denies use Illicit Drug Use: denies illicit drug use Functional Ability ADLs Independent: dressing, eating, toileting, bathing. Ambulation: independent IADLs Independent: shopping, housework, finances, food prep, telephone, transportation , medication admin. Review of Systems Review of Systems Constitutional: Reports: see HPI. Cardiovascular: Reports: see HPI. Respiratory: Reports: see HPI. GI: Reports: see HPI. Genitourinary: Reports: see HPI. Exam & Diagnostic Data Last 24 Hrs of Vital Signs/I&O Vital Signs Date Time Temp Pulse Resp B/P B/P Pulse O2 O2 Flow FiO2 Mean Ox Delivery Rate 02/22 1312 97.6 84 20 102/61 92 Room Air Room Air 02/22 1204 97.5 79 18 114/63 93 Room Air 02/22 1152 Room Air Room Air 02/22 1016 95.9 98 20 125/71 92 Room Air Room Air Intake & Output 02/22 1600 02/22 0800 02/22 0000 Intake Total 2000 Output Total 420 Balance 1580 Intake, IV 2000 Output, Urine 420 Patient 177 lb Weight Weight Reported by Patient Measurement Method Physical Exam General Appearance Alert, Oriented X3, Cooperative, No Acute Distress Skin Temp/Moisture Exam: Warm/Dry HEENT Atraumatic, PERRLA, EOMI Neck Supple, No JVD Cardiovascular Regular Rate, Normal S1, Normal S2 Lungs Normal Air Movement, No added sound Abdomen Normal Bowel Sounds, Soft, No Tenderness, obese Extremities No Edema, Normal Pulses Last 24 Hrs of Labs/Haroon: Laboratory Tests 02/22/18 1327: Lactic Acid 1.8 02/22/18 1327: Anion Gap 19 H, Estimated GFR > 60, Glucose 512 *H, Calcium 9.9, Phosphorus 3.7 , Magnesium 2.2, Total Bilirubin 0.6, AST 13 L, ALT 29, Albumin 3.9 02/22/18 1148: Urine Color STRAW, Urine Clarity CLEAR, Urine pH 6.0, Ur Specific [place] 1.010, Urine Protein NEG, Urine Ketones 15 H, Urine Nitrite NEG, Urine Bilirubin NEG, Urine Urobilinogen 0.2, Ur Leukocyte Esterase NEG, Ur Microscopic EXAM NOT REQUIRED, Urine Hemoglobin NEG, Urine Glucose >=1000 H 02/22/18 1123: Bicarbonate Actual 16 L, Mixed VBG pH 7.30 L, Mixed VBG pCO2 33 L, Mixed VBG O2 Saturation 50 H, Carboxyhemoglobin 3.3, O2 Concentration % RA, O2 Delivery Method RA, Phlebotomy Draw Site RT 02/22/18 1100: Anion Gap 22 H, Estimated GFR > 60, BUN/Creatinine Ratio 38.2 H, Glucose 731 * H, Hemoglobin A1c Pending, Lactic Acid 1.6, Calcium 11.5 H, Magnesium 2.4 H, Total Bilirubin 0.6, AST 13 L, ALT 32, Alkaline Phosphatase 223 H, Troponin I < 0.01, Total Protein 6.7, Albumin 4.0, Globulin 2.7, Albumin/Globulin Ratio 1.5 , TSH 2.210, Free T4 1.42, CBC w Diff NO MAN DIFF REQ, RBC 5.73, MCV 90.9, MCH 29.7, MCHC 32.7 L, RDW 12.9, MPV 10.5 H, Gran % 76.4 H, Lymphocytes % 14.9 L , Monocytes % 7.3, Eosinophils % 0.9, Basophils % 0.5, Absolute Granulocytes 7.7 H, Absolute Lymphocytes 1.5, Absolute Monocytes 0.7 H, Absolute Eosinophils 0.1, Absolute Basophils 0.1, Acetone Level POSITIVE AT 1:8 DIL 02/22/18 1058: Acetone Level Cancelled Microbiology 02/22 1302 UPPER RESP: Surveillance Culture - ORD 02/22 1302 GI: Surveillance Culture - ORD 02/22 1230 BLOOD: Blood Culture - RECD 02/22 1100 BLOOD: Blood Culture - RECD Diagnostic Data EKG Results Normal sinus rhythm, QTC 421, heart rate 90 CXR Results EXAMINATION: XR PORTABLE CHEST CLINICAL INFORMATION: Pneumonia, shortness of breath. COMPARISON: Prior chest most recent May 2017. CT November 2017. TECHNIQUE: Portable frontal view of the chest was obtained. FINDINGS: There are bibasilar opacities similar to prior likely atelectasis and/or scarring. The cardiac silhouette, mediastinum, and pulmonary vascularity are normal. BONE AND SOFT TISSUES: Postsurgical changes in the left shoulder. IMPRESSION: Bibasilar opacities unchanged likely scarring and/or discoid atelectasis. Assessment/Plan Assessment: This is 78 year-old man with medical history of COPD not on home oxygen, hypertension, gastroesophageal reflux disease, Campos's esophagus, recent H.pylori postive gastritis, CAD s/p stent(2016). He presented to the emergency department with c/o weakness, weight loss and increase oral intake that lead to increase urine out put. Problem list: -New diagnosis of diabetes mellitus with hyperosmolar hyperglycemic state with anion gap metabolic acidosis. -Pseudohypernatremia due to above. -Volume depletion due to above. -Hypercalcium with elevated ALK.Phosph. -Chest tightness/SOB. Plan: -Admit patient to the critical care unit -Vitals every shift, Accu-Chek every 1 hr -Continue insulin drip and adjust the dose according to the Accu-Chek -ICU bundle every 2 hrs then every 4 hrs if needed. -40 mg of potassium in NS @ 250 cc/hr if the p.t still dehydrated and the potassium < 5.3. -We will change the IVF to D5 1/2 NS with 40 mg K as soon as his BS <250. -We will start long acting insulin as sson as his BS<200 and the his and anion gap closed, and we will feed him sold diet. also we will start premeal insulin coverge. -Obtain hemoglobin A1c, free T4, TSH, mag, vit.D level, GGT. -Endocrinology consultation -GI prophylaxis with IV 40 mg Protonix daily -Serial troponin and EKG to rule out ACS -TRC and nebs as needed, hold off on any antibiotic or steroid for now. -Nicotine Patch 21 mg q24hrs. -Cont his home medications -p.t will need to follow up after control his blood sugar as an outpatient with GI to address his H. pylori treatment and follow up. -Pain pathway -DVT ppt: Heparin subcutaneous -Full code As Ranked By This Provider Problem List: 1. DKA (diabetic ketoacidoses) 2. COPD (chronic obstructive pulmonary disease) Core Measures/Misc (08/03) Acute Coronary Syndrome ACS Diagnosis: No Congestive Heart Failure Congestive Heart Failure Diagnosis No Cerebrovascular Accident CVA/TIA Diagnosis: No VTE (View Protocol) VTE Risk Factors Age>40 No Mechanical VTE Prophylaxis d/t N/A MechProphylax Ordered No VTE Pharm Prophylaxis d/t NA PharmProphylax ordered Sepsis (View protocol) Sepsis Present: No Maral LEON,Tung 02/22/18 1405: Attending MD Review Statement Attending Statement Attending MD Statement: examined this patient, discuss w/resident/PA/HEALTH SAFETY INSTRUCTOR, agreed w/resident/PA/HEALTH SAFETY INSTRUCTOR, discussed with family, reviewed EMR data (avail), discussed with nursing, discussed with case mgmt, reviewed images, amended to note Attending Assessment/Plan: PT with mod copd, ihd, recent pci, on dapt, ongoing smoking, Barretts esophagus, recent H.pylori postive gastritis, peripheral vascular disease, probable obesity hypoventilation syndrome, chronic hypercalcemia, chronic mild erythrocytosis probably related to COPD and obesity hypoventilation syndrome now has Hyperosmolar diabetes with mild ketosis with significant anion gap acidosis. This was preceded by significant osmotic diuresis and dehydration Dehydration with mild acute kidney injury Ischemic heart disease with previous stent on dual antiplatelet therapy Moderate COPD Mild chronic erythrocytosis most likely related to COPD and obesity hypoventilation probable sleep apnea needs to be evaluated Chronic hypercalcemia needs to be evaluated Recent H. pylori gastritis with Campos's esophagus, colon polyps stable. RECOMMENDATION Continue insulin drip Intravenous fluids with normal saline 100 mL Check his blood work often, changes IV fluids to D5 half-normal saline with 40 mEq of potassium once his potassium is down to 5.2 and if his sugar does come down to 250 Continue insulin drip until his anion gap closes Repeat his calcium, PTH, vitamin D 3 level tomorrow Keep his oxygen sats more than 90 Continue his dual antiplatelet therapy , proton pump inhibitor Rule out [place] Subcutaneous heparin Once his sugar normalizes, and the anion gap closes and then patient can receive a small dose of long-acting insulin and can start NovoLog with sliding scale smoking cessation counselling done Out pt sleep study Patient critically ill total time spent 36 minutes
--- NOTE | 2018-02-22 13:21 | RADIOLOGY REPORT ---
EXAMINATION: XR PORTABLE CHEST CLINICAL INFORMATION: Pneumonia, shortness of breath. COMPARISON: Prior chest most recent May 2017. CT November 2017. TECHNIQUE: Portable frontal view of the chest was obtained. FINDINGS: There are bibasilar opacities similar to prior likely atelectasis and/or scarring. The cardiac silhouette, mediastinum, and pulmonary vascularity are normal. BONE AND SOFT TISSUES: Postsurgical changes in the left shoulder. IMPRESSION: Bibasilar opacities unchanged likely scarring and/or discoid atelectasis.
[2018-02-22 13:50] VITALS: BP 108/62
[2018-02-22 16:00] VITALS: BP 100/64
--- NOTE | 2018-02-22 16:22 | Cons- Endocrinology ---
General Information and HPI Consulting Request Date of Consult: 02/22/18 Requested By: medical team Reason for Consult: hyperglycemic hyperosmolar state Source of Information: patient, old records Exam Limitations: no limitations History of Present Illness: This 78-year-old male came to the emergency room because he was feeling weak. He has not felt well for the past few months. He noticed increased thirst and increased urination as well as a 25 pound weight loss. He had a GI evaluation for bleeding in November 2017 and at that time his blood sugar was also elevated. However the patient states he has no previous knowledge of diabetes. He is not aware of his family history. Apparently his son however does have diabetes. The patient has been a heavy smoker smoking 2-1/2 packs per day and is now down to 1 pack per day. He has known coronary artery disease and had a stent placed about 1 year ago. Labs in the ER on admission showed glucose 731 BUN 42 creatinine 1.1 sodium 129 potassium 5.5 chloride 89 CO2 18 anion gap 22 calcium 11.5 albumin 4.0 alk phos 223. Hemoglobin A1c is pending. TSH is 2.2 and free T4 1.42. The patient has been treated with normal saline IV and potassium. Repeat labs and 1:30 this afternoon show glucose 512 BUN 39 creatinine 1.0 sodium 136 potassium 4.6, chloride 97, CO2 19, anion gap 19 calcium 9.9. The patient's insulin drip is 8 U/h. His last fingerstick sugar was 312. Allergies/Medications Allergies: Coded Allergies: No Known Allergies (02/22/17) Home Med List: Albuterol Sulfate (Proair Hfa) 90 MCG HFA.AER.AD 2 PUF INH Q4-6 PRN PRN COPD (Reported) Amlodipine Besylate 2.5 MG TABLET 1 TAB PO DAILY BP (Reported) Aspirin (Ecotrin*) 81 MG TABLET.DR 81 MG PO DAILY NSTEMI Clopidogrel Bisulfate (Plavix) 75 MG TABLET 75 MG PO DAILY NSTEMI To be taken for 1 year Losartan Potassium 100 MG TABLET 1 TAB PO DAILY HTN (Reported) Tiotropium [place] (Spiriva) 18 MCG CAP.W.DEV 1 CAP INH DAILY COPD (Reported) Review of Systems Review of Systems Constitutional: Denies: chills, fever. Cardiovascular: Denies: chest pain. Respiratory: Denies: cough, short of breath. GI: Denies: abdominal pain, nausea, vomiting. Genitourinary: Reports: nocturia. Skin: Reports: no symptoms. Past History Travel History Traveled to [place] past 21 day No Medical History Blood Transfusion Hx: No Neurological: NONE EENT: NONE Cardiovascular: hypertension, myocardial infarction, STENT Respiratory: COPD Gastrointestinal: GERD Hepatic: NONE Renal: NONE Musculoskeletal: NONE Psychiatric: NONE Endocrine: NONE Blood Disorders: NONE Cancer(s): NONE [employer]KH[employer]EDGE/Reproductive: NONE Surgical History Surgical History: arthroscopy Family History Relations & Conditions If Any: SON (Diabetes mellitus, muscular dystrophy). Relation not specified for: Unknown family medical history Psychosocial History Where Do You Live? Home Services at Home: None Smoking Status: Current Everyday Smoker ETOH Use: denies use Illicit Drug Use: denies illicit drug use Functional Ability ADLs Independent: dressing, eating, toileting, bathing. Ambulation: independent IADLs Independent: shopping, housework, finances, food prep, telephone, transportation , medication admin. Exam & Diagnostic Data Last 24 Hrs of Vital Signs/I&O Vital Signs Date Time Temp Pulse Resp B/P B/P Pulse O2 O2 Flow FiO2 Mean Ox Delivery Rate 02/22 1350 92 Room Air 02/22 1350 97.1 88 22 108/62 92 Room Air 02/22 1312 97.6 84 20 102/61 92 Room Air Room Air 02/22 1204 97.5 79 18 114/63 93 Room Air 08 1152 Room Air Room Air 08 1016 95.9 98 20 125/71 92 Room Air Room Air Intake & Output 02/22 1600 08 0800 0408 0000 Intake Total 1999 Output Total 420 Balance 1580 Intake, IV 2000 Output, Urine 420 Patient 176 lb Weight Weight Bed scale Measurement Method Vital Signs Date Time Temp Pulse Resp B/P B/P Pulse O2 O2 Flow FiO2 Mean Ox Delivery Rate 02/22 1350 92 Room Air 02/22 1350 97.1 88 22 108/62 92 Room Air /08 1312 97.6 84 20 102/61 92 Room Air Room Air 0408 1204 97.5 79 18 114/63 93 Room Air 08 1152 Room Air Room Air 08 1016 95.9 98 20 125/71 92 Room Air Room Air Intake & Output 02/22 1600 08 0800 04/08 0000 Intake Total 2000 Output Total 420 Balance 1580 Intake, IV 2000 Output, Urine 420 Patient 176 lb Weight Weight Bed scale Measurement Method Physical Exam General Appearance: alert, awake, comfortable Head: normal appearance Neck: normal inspection Respiratory: normal breath sounds Cardiovascular: regular rate/rhythm Gastrointestinal: normal bowel sounds, soft, non-tender Extremities: normal inspection Labs/Haroon Results: Laboratory Tests 02/22 02/22 02/22 1530 1327 1327 Chemistry Sodium (137 - 145 mmol/L) Pending 136 L Potassium (3.5 - 5.1 mmol/L) Pending 4.6 Chloride (98 - 107 mmol/L) Pending 97 L Carbon Dioxide (22 - 30 mmol/L) Pending 19 L Anion Gap (5 - 16) Pending 19 H BUN (9 - 20 mg/dL) Pending 39 H Creatinine (0.7 - 1.2 mg/dL) Pending 1.0 Estimated GFR (>60 ml/min) > 60 Glucose (65 - 99 mg/dL) Pending 512 *H Lactic Acid (0.7 - 2.1 mmol/L) 1.8 Calcium (8.4 - 10.2 mg/dL) Pending 9.9 Phosphorus (2.5 - 4.5 mg/dL) Pending 3.7 Magnesium (1.6 - 2.3 mg/dL) Pending 2.2 Total Bilirubin (0.2 - 1.3 mg/dL) Pending 0.6 AST (17 - 59 U/L) Pending 13 L ALT (21 - 72 U/L) Pending 29 Albumin (3.5 - 5.0 g/dL) Pending 3.9 25-OH Vitamin D Total Pending 02/22 02/22 1148 1123 Blood Gas Bicarbonate Actual (22 - 26 MEQ/L) 16 L Mixed VBG pH (7.31 - 7.41 PH) 7.30 L Mixed VBG pCO2 (41 - 51 TORR) 33 L Mixed VBG O2 Saturation (35 - 45 TORR) 50 H Carboxyhemoglobin (1.5 - 5.0 %) 3.3 O2 Concentration % RA O2 Delivery Method RA Miscellaneous Phlebotomy Draw Site RT Urines Urine Color (YEL,AMB,STR) STRAW Urine Clarity (CLEAR) CLEAR Urine pH (5.0 - 8.0) 6.0 Ur Specific [place] (1.001 - 1.035) 1.010 Urine Protein (NEG,<30 MG/DL) NEG Urine Ketones (NEG) 15 H Urine Nitrite (NEG) NEG Urine Bilirubin (NEG) NEG Urine Urobilinogen (0.1 - 1.0 EU/dl) 0.2 Ur Leukocyte Esterase (NEG) NEG Ur Microscopic EXAM NOT REQUIRED Urine Hemoglobin (NEG) NEG Urine Glucose (N MG/DL) >=1000 H 02/22 02/22 1100 1058 Chemistry Sodium (137 - 145 mmol/L) 129 L Potassium (3.5 - 5.1 mmol/L) 5.5 H Chloride (98 - 107 mmol/L) 89 L Carbon Dioxide (22 - 30 mmol/L) 18 L Anion Gap (5 - 16) 22 H BUN (9 - 20 mg/dL) 42 H Creatinine (0.7 - 1.2 mg/dL) 1.1 Estimated GFR (>60 ml/min) > 60 BUN/Creatinine Ratio (7 - 25 %) 38.2 H Glucose (65 - 99 mg/dL) 731 *H Hemoglobin A1c (4.2 - 5.8 %) Pending Lactic Acid (0.7 - 2.1 mmol/L) 1.6 Calcium (8.4 - 10.2 mg/dL) 11.5 H Magnesium (1.6 - 2.3 mg/dL) 2.4 H Total Bilirubin (0.2 - 1.3 mg/dL) 0.6 GGT (15 - 73 U/L) 79 H AST (17 - 59 U/L) 13 L ALT (21 - 72 U/L) 32 Alkaline Phosphatase (< 127 U/L) 223 H Troponin I (<0.11 ng/ml) < 0.01 Total Protein (6.3 - 8.2 g/dL) 6.7 Albumin (3.5 - 5.0 g/dL) 4.0 Globulin (1.9 - 4.2 gm/dL) 2.7 Albumin/Globulin Ratio (1.1 - 2.2 %) 1.5 TSH (0.270 - 4.200 uIU/mL) 2.210 Free T4 (0.78 - 2.44 ng/dL) 1.42 Hematology CBC w Diff NO MAN DIFF REQ WBC (4.8 - 10.8 /CUMM) 10.0 RBC (4.70 - 6.10 /CUMM) 5.73 Hgb (14.0 - 18.0 G/DL) 17.0 Hct (42 - 52 %) 52.1 H MCV (80.0 - 94.0 FL) 90.9 MCH (27.0 - 31.0 PG) 29.7 MCHC (33.0 - 37.0 G/DL) 32.7 L RDW (11.5 - 14.5 %) 12.9 Plt Count (130 - 400 /CUMM) 340 MPV (7.4 - 10.4 FL) 10.5 H Gran % (42.2 - 75.2 %) 76.4 H Lymphocytes % (20.5 - 51.1 %) 14.9 L Monocytes % (1.7 - 9.3 %) 7.3 Eosinophils % (0 - 5 %) 0.9 Basophils % (0.0 - 2.0 %) 0.5 Absolute Granulocytes (1.4 - 6.5 /CUMM) 7.7 H Absolute Lymphocytes (1.2 - 3.4 /CUMM) 1.5 Absolute Monocytes (0.10 - 0.60 /CUMM) 0.7 H Absolute Eosinophils (0.0 - 0.7 /CUMM) 0.1 Absolute Basophils (0.0 - 0.2 /CUMM) 0.1 Toxicology Acetone Level (NEGATIVE) POSITIVE AT 1:8 DIL Cancelled Assessment/Plan Assessment/Plan This 78-year-old male presents with a hyperosmolar hyperglycemic state. He is being treated with IV fluids with repletion of sodium and potassium and also an IV insulin drip. When the patient's fingerstick sugar falls to 250 we should change his IV to D5 half normal saline with 20 mEq KCl at 150 cc/h and continue the insulin drip. The patient should be on the insulin drip until the anion gap closes and his bicarb is 18 are above. The patient has had no nausea or vomiting. So we should be able to begin his diet later today. We may be able to transition the patient to subcu insulin later today. At that time we will begin Levemir 15 units twice a day the first dose stat. Also sliding scale NovoLog. Sliding scale NovoLog before meals should be 80-150 give 4 units NovoLog, 151-200 give 6 units NovoLog, 201-250 give 7 units NovoLog, 251 -300 give 8 units NovoLog, 301-350 give 9 units NovoLog, 351-400 give 10 units NovoLog. A separate bedtime sliding scale NovoLog should be written. Sliding scale NovoLog at bedtime should be less than 250 give no insulin, 251-300 give 2 units NovoLog, 301-350 give 3 units NovoLog, 351-400 give 4 units NovoLog. In view of borderline low blood pressure we should check a cortisol level. If the patient is transitioned to subcu insulin tonight we should check his sugar 2 hours after supper to make sure that it is not increasing rapidly again. We can give him a correction dose if needed. 10 PM sliding scale has also been ordered as mentioned above. We can run D5 half-normal saline with 20 meq of KCl at 50 cc an hour tonight until we are sure he is taking diet well. Consult Acknowledgment - Thank you for your consult request.
[2018-02-23] VITALS: BP 110/60
[2018-02-23 04:40] LABS: ABSOLUTE BASOPHIL COUNT 0.1 /CUMM (0.0-0.2); ABSOLUTE EOSINOPHIL COUNT 0.3 /CUMM (0.0-0.7); ABSOLUTE GRANULOCYTE CT 5.6 /CUMM (1.4-6.5); ABSOLUTE LYMPH COUNT 2.2 /CUMM (1.2-3.4); ABSOLUTE MONOCYTE COUNT 0.8 /CUMM (0.10-0.60); BASOPHIL % 0.6 % (0.0-2.0); EOSINOPHIL % 2.9 % (0-5); GRANULOCYTE % 63.2 % (42.2-75.2); MEAN CORPUSCULAR HGB 30.1 PG (27.0-31.0); MEAN CORPUSCULAR HGB CONC 32.9 G/DL (33.0-37.0); MEAN CORPUSCULAR VOLUME 91.5 FL (80.0-94.0); MEAN PLATELET VOLUME 10.1 FL (7.4-10.4); PLATELET COUNT 264 /CUMM (130-400); RED BLOOD CELL CT 4.66 /CUMM (4.70-6.10); WHITE BLOOD CELL COUNT 8.9 /CUMM (4.8-10.8)
[2018-02-23 04:52] LABS: HEMATOCRIT 42.6 % (42-52)
--- NOTE | 2018-02-23 07:40 | PN- Diabetes ---
Assessment/Plan Diabetes Assessment: This 78-year-old male entered the hospital with a hyperglycemic hyperosmolar state with dehydration. He was on an insulin drip and late in the day yesterday we switched him to subcu insulin. He did eat his supper meal well. At the present time he is on 15 units of Levemir twice a day and sliding scale NovoLog. His blood sugar in the laboratory at 4 AM was 245. Plan: Suggest continue the present insulin regimen. The patient can be transferred out of the intensive care unit to a regular floor. He should be on a diabetic diet consistent carbohydrate 1. We will continue to monitor his sugar 4 times a day. He will probably need further adjustment of his insulin regimen. After the patient is discharged he may do well on a combination of oral medication for his diabetes and insulin. However this will need to be evaluated after he is home. Subjective Subjective: Feels okay Review of Systems Constitutional: Denies: chills, fever. Cardiovascular: Denies: chest pain. Respiratory: Denies: short of breath. Skin: Reports: no symptoms. Objective Last 24 Hrs of Vital Signs/I&O Vital Signs Date Time Temp Pulse Resp B/P B/P Pulse O2 O2 Flow FiO2 Mean Ox Delivery Rate 02/23 0400 94 Nasal 3.0L Cannula 02/23 0000 95 Nasal 2.0L Cannula 02/23 0000 97.8 68 20 110/60 95 Nasal 2.0L Cannula 02/22 2100 Nasal 2.0L Cannula 02/22 2000 95 Nasal 2.0L Cannula 02/22 1600 92 Room Air 02/22 1600 97.9 80 20 100/64 92 Room Air 02/22 1350 92 Room Air 02/22 1350 97.1 88 22 108/62 92 Room Air 02/22 1312 97.6 84 20 102/61 92 Room Air Room Air 02/22 1204 97.5 79 18 114/63 93 Room Air 02/22 1152 Room Air Room Air 02/22 1016 95.9 98 20 125/71 92 Room Air Room Air Intake & Output 02/23 0800 02/23 0000 02/22 1600 Intake Total 336 535 4696 Output Total 500 50 420 Balance -520 473 1438 Intake, IV 673 2000 Intake, Oral 100 200 Number 1 2 Bowel Movements Output, Urine 500 50 420 Patient 80 lb 3 oz 176 lb Weight Weight Bed scale Bed scale Measurement Method Vital Signs Date Time Temp Pulse Resp B/P B/P Pulse O2 O2 Flow FiO2 Mean Ox Delivery Rate 02/23 0400 94 Nasal 3.0L Cannula 02/23 0000 95 Nasal 2.0L Cannula 02/23 0000 97.8 68 20 110/60 95 Nasal 2.0L Cannula 02/22 2100 Nasal 2.0L Cannula 02/22 2000 95 Nasal 2.0L Cannula 02/22 1600 92 Room Air 02/22 1600 97.9 80 20 100/64 92 Room Air 02/22 1350 92 Room Air 02/22 1350 97.1 88 22 108/62 92 Room Air 02/22 1312 97.6 84 20 102/61 92 Room Air Room Air 02/22 1204 97.5 79 18 114/63 93 Room Air 02/22 1152 Room Air Room Air 02/22 1016 95.9 98 20 125/71 92 Room Air Room Air Intake & Output 02/23 0800 02/23 0000 02/22 1600 Intake Total 416 455 4020 Output Total 500 50 420 Balance -855 219 0199 Intake, IV 673 1999 Intake, Oral 100 200 Number 1 2 Bowel Movements Output, Urine 500 50 420 Patient 80 lb 3 oz 176 lb Weight Weight Bed scale Bed scale Measurement Method Physical Exam General Appearance: alert, awake, comfortable Head: normal appearance Respiratory: normal breath sounds Cardiovascular: regular rate/rhythm Abdomen: normal bowel sounds Extremities: normal inspection Current Medications: Current Medications Sig/Mary Start time Last Medication Dose Route Stop Time Status Admin Acetaminophen 650 MG Q6P PRN 02/22 1315 AC PO Albuterol Sulfate 2 PUF Q4-6 PRN PRN 02/22 1500 AC INH Amlodipine Besylate 2.5 MG DAILY 02/23 1000 AC PO Clopidogrel Bisulfate 75 MG DAILY 02/23 1000 AC PO Heparin Sodium 5,000 UNIT Q8 02/22 1400 AC 02/23 (Porcine) SC 0541 Heparin Sodium 0 .STK-MED ONE 02/22 1338 DC (Porcine) .ROUTE Hydrocodone Bitart/ 1 TAB Q6P PRN 02/22 1315 AC Acetaminophen PO Insulin Aspart 4 UNITS ONCE ONE 02/22 2115 DC 02/22 SC 02/226 2112 Insulin Aspart 0 TIDAC/HS 02/22 1700 AC 02/22 SC 1703 Insulin Detemir 15 UNITS BID 02/22 1630 AC 02/22 SC 2220 Insulin Human Regular 100 UNIT ONCE ONE 02/22 1200 DC 02/22 Sodium Chloride 100 ML IV 02/22 1201 1306 Insulin Human Regular 8 UNITS ONCE ONE 02/22 1200 DC 02/22 IV 02/22 1201 1210 Losartan Potassium 100 MG DAILY 02/23 1000 AC PO Morphine Sulfate 2 MG Q4P PRN 02/22 1315 AC IV Nicotine 21 MG DAILY 02/22 1600 AC 02/22 TOP 1714 Pantoprazole Sodium 0 .STK-MED ONE 02/22 1338 DC IV Pantoprazole Sodium 40 MG DAILY 02/22 1311 AC 02/22 IV 1325 Potassium Chloride 40 MEQ Q4H 02/22 2014 DC Sodium Chloride 1,000 ML IV Potassium Chloride 20 MEQ Q20H 02/22 1630 DC 02/22 Dextrose/Sodium 1,000 ML IV 1705 Chloride Potassium Chloride 40 MEQ Q8H 02/22 1430 DC 02/22 Sodium Chloride 1,000 ML IV 02/22 2013 1614 Sodium Chloride 1,000 ML BOLUS ONE 02/22 1115 DC 02/22 IV 02/22 1214 1130 Sodium Chloride 1,000 ML BOLUS ONE 02/22 1115 DC 02/22 IV 02/22 1214 1235 Sodium Chloride 1,000 ML BOLUS ONE 02/22 1115 CAN IV 02/22 1214 Tiotropium [place] 1 PUF DAILY 02/23 1000 AC INH Findings Pertinent Lab/[place] Results: Laboratory Tests 02/23 02/22 02/22 0400 2300 1730 Chemistry Sodium (137 - 145 mmol/L) 137 Cancelled Potassium (3.5 - 5.1 mmol/L) 4.0 Cancelled Chloride (98 - 107 mmol/L) 103 Cancelled Carbon Dioxide (22 - 30 mmol/L) 26 Cancelled Anion Gap (5 - 16) 8 Cancelled BUN (9 - 20 mg/dL) 29 H Cancelled Creatinine (0.7 - 1.2 mg/dL) 0.9 Cancelled Estimated GFR (>60 ml/min) > 60 Glucose (65 - 99 mg/dL) 245 H Cancelled Calcium (8.4 - 10.2 mg/dL) 9.0 Cancelled Phosphorus (2.5 - 4.5 mg/dL) 3.1 Cancelled Magnesium (1.6 - 2.3 mg/dL) 2.1 Cancelled Total Bilirubin (0.2 - 1.3 mg/dL) 0.4 Cancelled AST (17 - 59 U/L) 11 L Cancelled ALT (21 - 72 U/L) 28 Cancelled Troponin I (<0.11 ng/ml) < 0.01 Albumin (3.5 - 5.0 g/dL) 2.8 L Cancelled Hematology CBC w Diff NO MAN DIFF REQ WBC (4.8 - 10.8 /CUMM) 8.9 RBC (4.70 - 6.10 /CUMM) 4.66 L Hgb (14.0 - 18.0 G/DL) 14.0 Hct (42 - 52 %) 42.6 MCV (80.0 - 94.0 FL) 91.5 MCH (27.0 - 31.0 PG) 30.1 MCHC (33.0 - 37.0 G/DL) 32.9 L RDW (11.5 - 14.5 %) 13.0 Plt Count (130 - 400 /CUMM) 264 MPV (7.4 - 10.4 FL) 10.1 Gran % (42.2 - 75.2 %) 63.2 Lymphocytes % (20.5 - 51.1 %) 24.2 Monocytes % (1.7 - 9.3 %) 9.1 Eosinophils % (0 - 5 %) 2.9 Basophils % (0.0 - 2.0 %) 0.6 Absolute Granulocytes (1.4 - 6.5 /CUMM) 5.6 Absolute Lymphocytes (1.2 - 3.4 /CUMM) 2.2 Absolute Monocytes (0.10 - 0.60 /CUMM) 0.8 H Absolute Eosinophils (0.0 - 0.7 /CUMM) 0.3 Absolute Basophils (0.0 - 0.2 /CUMM) 0.1 02/22 02/22 02/22 02/22 1710 1530 1327 1327 Chemistry Sodium (137 - 145 mmol/L) 137 134 L 136 L Potassium (3.5 - 5.1 mmol/L) 4.2 4.1 4.6 Chloride (98 - 107 mmol/L) 103 102 97 L Carbon Dioxide (22 - 30 mmol/L) 20 L 19 L 19 L Anion Gap (5 - 16) 14 13 19 H BUN (9 - 20 mg/dL) 35 H 37 H 39 H Creatinine (0.7 - 1.2 mg/dL) 0.8 0.9 1.0 Estimated GFR (>60 ml/min) > 60 > 60 > 60 Glucose (65 - 99 mg/dL) 231 H 355 H 512 *H Lactic Acid (0.7 - 2.1 mmol/L) 1.8 Calcium (8.4 - 10.2 mg/dL) 9.7 9.7 9.9 Phosphorus (2.5 - 4.5 mg/dL) 2.5 2.9 3.7 Magnesium (1.6 - 2.3 mg/dL) 2.1 2.2 2.2 Total Bilirubin (0.2 - 1.3 mg/dL) 0.4 0.5 0.6 AST (17 - 59 U/L) 13 L 11 L 13 L ALT (21 - 72 U/L) 26 29 29 Troponin I (<0.11 ng/ml) < 0.01 Albumin (3.5 - 5.0 g/dL) 3.3 L 3.3 L 3.9 25-OH Vitamin D Total (30 - 100 ng/ml) 13.4 L 02/22 02/22 1148 1123 Blood Gas Bicarbonate Actual (22 - 26 MEQ/L) 16 L Mixed VBG pH (7.31 - 7.41 PH) 7.30 L Mixed VBG pCO2 (41 - 51 TORR) 33 L Mixed VBG O2 Saturation (35 - 45 TORR) 50 H Carboxyhemoglobin (1.5 - 5.0 %) 3.3 O2 Concentration % RA O2 Delivery Method RA Miscellaneous Phlebotomy Draw Site RT Urines Urine Color (YEL,AMB,STR) STRAW Urine Clarity (CLEAR) CLEAR Urine pH (5.0 - 8.0) 6.0 Ur Specific [place] (1.001 - 1.035) 1.010 Urine Protein (NEG,<30 MG/DL) NEG Urine Ketones (NEG) 15 H Urine Nitrite (NEG) NEG Urine Bilirubin (NEG) NEG Urine Urobilinogen (0.1 - 1.0 EU/dl) 0.2 Ur Leukocyte Esterase (NEG) NEG Ur Microscopic EXAM NOT REQUIRED Urine Hemoglobin (NEG) NEG Urine Glucose (N MG/DL) >=1000 H 02/22 02/22 1100 1058 Chemistry Sodium (137 - 145 mmol/L) 129 L Potassium (3.5 - 5.1 mmol/L) 5.5 H Chloride (98 - 107 mmol/L) 89 L Carbon Dioxide (22 - 30 mmol/L) 18 L Anion Gap (5 - 16) 22 H BUN (9 - 20 mg/dL) 42 H Creatinine (0.7 - 1.2 mg/dL) 1.1 Estimated GFR (>60 ml/min) > 60 BUN/Creatinine Ratio (7 - 25 %) 38.2 H Glucose (65 - 99 mg/dL) 731 *H Hemoglobin A1c (4.2 - 5.8 %) Pending Lactic Acid (0.7 - 2.1 mmol/L) 1.6 Calcium (8.4 - 10.2 mg/dL) 11.5 H Magnesium (1.6 - 2.3 mg/dL) 2.4 H Total Bilirubin (0.2 - 1.3 mg/dL) 0.6 GGT (15 - 73 U/L) 79 H AST (17 - 59 U/L) 13 L ALT (21 - 72 U/L) 32 Alkaline Phosphatase (< 127 U/L) 223 H Troponin I (<0.11 ng/ml) < 0.01 Total Protein (6.3 - 8.2 g/dL) 6.7 Albumin (3.5 - 5.0 g/dL) 4.0 Globulin (1.9 - 4.2 gm/dL) 2.7 Albumin/Globulin Ratio (1.1 - 2.2 %) 1.5 TSH (0.270 - 4.200 uIU/mL) 2.210 Free T4 (0.78 - 2.44 ng/dL) 1.42 Cortisol AM Sample (4.46 - 22.7 ug/dL) 24.9 H Hematology CBC w Diff NO MAN DIFF REQ WBC (4.8 - 10.8 /CUMM) 10.0 RBC (4.70 - 6.10 /CUMM) 5.73 Hgb (14.0 - 18.0 G/DL) 17.0 Hct (42 - 52 %) 52.1 H MCV (80.0 - 94.0 FL) 90.9 MCH (27.0 - 31.0 PG) 29.7 MCHC (33.0 - 37.0 G/DL) 32.7 L RDW (11.5 - 14.5 %) 12.9 Plt Count (130 - 400 /CUMM) 340 MPV (7.4 - 10.4 FL) 10.5 H Gran % (42.2 - 75.2 %) 76.4 H Lymphocytes % (20.5 - 51.1 %) 14.9 L Monocytes % (1.7 - 9.3 %) 7.3 Eosinophils % (0 - 5 %) 0.9 Basophils % (0.0 - 2.0 %) 0.5 Absolute Granulocytes (1.4 - 6.5 /CUMM) 7.7 H Absolute Lymphocytes (1.2 - 3.4 /CUMM) 1.5 Absolute Monocytes (0.10 - 0.60 /CUMM) 0.7 H Absolute Eosinophils (0.0 - 0.7 /CUMM) 0.1 Absolute Basophils (0.0 - 0.2 /CUMM) 0.1 Toxicology Acetone Level (NEGATIVE) POSITIVE AT 1:8 DIL Cancelled
--- NOTE | 2018-02-23 08:00 | PN- Resident CRCU ---
Subjective HPI/CRCU Issues: Overnight events: No acute events overnight. Patient reports that he feels better today. Patient today on telemetry had a run of tachycardia. Patient denies any chest pain, palpitations, shortness of breath, nausea/vomiting, diaphoresis. EKG and troponins negative this morning. Potassium and magnesium within normal limits. Patient's IV insulin drip has been discontinued overnight with improvement in his sugars 226. Vitals: MAXIMUM TEMPERATURE 97.9, sinus rhythm, respiration rate 18-22, blood pressure 90/54, saturating between 91-98% on 2 L nasal cannula Total intake 997, output 1150 Accu-Cheks: 208, 208, 226, 277, 269, 200, 234, 236, 276, 312, 356, 434, 496, 500 , >500 Labs: WBC 8.9, H&H 14 and 42.6, platelet count 264 Sodium 137, potassium 4.0, chloride 103, bicarbonate 26, BUN 29, creatinine 0.9, calcium 9.0, phosphorus 3.1, magnesium 2.1, LFTs within normal limits, troponin less than 0.01, albumin 2.8 Objective Vital Signs & I&O Last 8 Hrs of Vitals and I&O: Intake & Output 02/23 1600 02/23 0800 02/23 0000 Intake Total 100 873 Output Total 500 50 Balance -400 823 Intake, IV 673 Intake, Oral 100 200 Number 1 2 Bowel Movements Output, Urine 500 50 Patient 80 lb 3 oz Weight Weight Bed scale Measurement Method Vital Signs Date Time Temp Pulse Resp B/P B/P Pulse O2 O2 Flow FiO2 Mean Ox Delivery Rate 02/23 0949 77 103/02/23 0949 77 103/67 02/23 0400 94 Nasal 3.0L Cannula 02/23 0000 95 Nasal 2.0L Cannula 02/23 0000 97.8 68 20 110/60 95 Nasal 2.0L Cannula 02/22 2100 Nasal 2.0L Cannula 02/22 2000 95 Nasal 2.0L Cannula 02/22 1600 92 Room Air 02/22 1600 97.9 80 20 100/64 92 Room Air 02/22 1350 92 Room Air 02/22 1350 97.1 88 22 108/62 92 Room Air 02/22 1312 97.6 84 20 102/61 92 Room Air Room Air 02/22 1204 97.5 79 18 114/63 93 Room Air 02/22 1152 Room Air Room Air Exam General Appearance: well developed/nourished, no apparent distress, awake, comfortable Head: atraumatic, normal appearance Respiratory: normal breath sounds, chest non-tender, no respiratory distress, lungs clear Cardiovascular: regular rate/rhythm Gastrointestinal: normal bowel sounds, soft, non-tender Extremities: normal inspection, no edema Current Medications: Current Medications Sig/Mary Start time Last Medication Dose Route Stop Time Status Admin Acetaminophen 650 MG Q6P PRN 02/22 1315 AC PO Albuterol Sulfate 2 PUF Q4-6 PRN PRN 02/22 1500 AC INH Amlodipine Besylate 2.5 MG DAILY 02/23 1000 AC 02/23 PO 0949 Clopidogrel Bisulfate 75 MG DAILY 02/23 1000 AC 02/23 PO 0949 Heparin Sodium 5,000 UNIT Q8 02/22 1400 AC 02/23 (Porcine) SC 0541 Heparin Sodium 0 .STK-MED ONE 02/22 1338 DC (Porcine) .ROUTE Hydrocodone Bitart/ 1 TAB Q6P PRN 02/22 1315 AC Acetaminophen PO Insulin Aspart 4 UNITS ONCE ONE 02/22 2115 DC 02/22 SC 02/22 2116 2112 Insulin Aspart 0 TIDAC/HS 02/22 1700 AC 02/23 SC 0833 Insulin Detemir 15 UNITS BID 02/22 1630 AC 02/23 SC 0950 Insulin Human Regular 100 UNIT ONCE ONE 02/22 1200 DC 02/22 Sodium Chloride 100 ML IV 02/22 1201 1306 Insulin Human Regular 8 UNITS ONCE ONE 02/22 1200 DC 02/22 IV 02/22 1201 1210 Losartan Potassium 100 MG DAILY 02/23 1000 AC 02/23 PO 0949 Morphine Sulfate 2 MG Q4P PRN 02/23 0800 AC IV Morphine Sulfate 2 MG Q4P PRN 02/22 1315 DC IV Nicotine 21 MG DAILY 02/22 1600 AC 02/23 TOP 0949 Pantoprazole Sodium 0 .STK-MED ONE 02/22 1338 DC IV Pantoprazole Sodium 40 MG DAILY 02/22 1311 AC 02/23 IV 0949 Potassium Chloride 40 MEQ Q4H 02/22 2014 DC Sodium Chloride 1,000 ML IV Potassium Chloride 20 MEQ Q20H 02/22 1630 DC 02/22 Dextrose/Sodium 1,000 ML IV 1705 Chloride Potassium Chloride 40 MEQ Q8H 02/22 1430 DC 04/08 Sodium Chloride 1,000 ML IV 02/22 2013 1614 Sodium Chloride 1,000 ML BOLUS ONE 02/22 1115 DC 04/08 IV / 1214 1130 Sodium Chloride 1,000 ML BOLUS ONE 02/22 1115 DC 04/08 IV /08 1214 1235 Sodium Chloride 1,000 ML BOLUS ONE 02/22 1115 CAN IV 02/22 1214 Tiotropium [place] 1 PUF DAILY 02/23 1000 AC 02/23 INH 0950 Impression/Plan Impression/Problem List Impression: Patient is a 78-year-old male with past medical history of COPD not on home oxygen, hypertension, GERD, Campos's Esophagus, recent H. pylori positive gastritis, coronary artery disease status post stent in 2017 on dual antiplatelet therapy presenting this admission with chief complaints of weakness , unintentional weight loss, polyuria and polydipsia. On admission patient was found to have blood glucose of 731, with positive acetone, metabolic acidosis with high anion gap. Patient was started on an IV insulin drip and IV fluids. Patient is admitted to ICU for management of following: Respiratory: COPD Patient is currently requiring 4L NC. CXR shows bibasilar opacities likely atelectic changes. - continue to wean off oxygen as tolerated - continue spiriva and albuterol inhalers - TRC/DuoNeb - smoking cessation education - nicotine patch Infectious: None Cardiac: Coronary artery disease status post stent in 2017 on dual antiplatelet therapy. Telemetry today showed what appeared to be artifiact however there was suspicion for nonsustained ventricular tachycardia. EKG and troponins were negative. Cardiology consulted for ventricular ectopy. Per cardiology telemetry strip showing normal sinus rhythm with artifact. Patient remained asymptomatic today. Echo done today showing stage I diastolic dysfunction, LVEF of greater than 65% with no regional wall motion abnormalities. - Continue aspirin and Plavix - Start metoprolol 12.5 BID and atorvastatin 40mg per cardiology - Telemetry monitoring not needed at this time per cardiology HTN: - continue amlodipien 2.5mg - continue losartan 100mg daily Heme: None Metabolic: Diabetic ketoacidosis in the setting of newly diagnosed diabetes Hemoglobin A1c was 12.9. Per patient he has never been diagnosed with diabetes in the past. Patient is currently asymptomatic with decreased urine output and decreased thirst. Fingersticks are improving in the 200s. Patient is currently off IV insulin drip and on Levemir 15 units twice a day with NovoLog sliding scale. - Continue Accu-Cheks 3 times a day before meals/daily at bedtime - Continue on NovoLog sliding scale per endocrinology recommendations - Continue Levemir 15 units twice a day - Diet adjusted to consistent carbohydrate 1 - Patient will require diabetic education and follow-up with endocrinology - Continue to monitor electrolytes and replete potassium as needed Alimentary: Consistent carbohydrate 1 diet GERD: - switch from IV to PO Protonix Nephrology: None Neurology: None DVT PPX: Heparin SQ Diet: consistent carb 1 Code: full code Dispo: transfer to [facility] Problem List: 1. DKA (diabetic ketoacidoses) Pain Ratin Tomorrow's Labs & Rationales: cbc bep Plan DVT/Prophylaxis: mechanical, pharmacological
--- NOTE | 2018-02-23 09:21 | PN- Pulmonary ---
Subjective HPI/Critical Care Issues: Doing much better No chest pain Mild hypoxia which improved upon deep inspiration Cxr atelectasis No pedal edema Anion gap closed EKG nil acute Objective Current Medications: Current Medications Sig/Mary Start time Last Medication Dose Route Stop Time Status Admin Acetaminophen 650 MG Q6P PRN 02/22 1315 AC PO Albuterol Sulfate 2 PUF Q4-6 PRN PRN 02/22 1500 AC INH Amlodipine Besylate 2.5 MG DAILY 02/23 1000 AC PO Clopidogrel Bisulfate 75 MG DAILY 02/23 1000 AC PO Heparin Sodium 5,000 UNIT Q8 02/22 1400 AC 02/23 (Porcine) SC 0541 Heparin Sodium 0 .STK-MED ONE 02/22 1338 DC (Porcine) .ROUTE Hydrocodone Bitart/ 1 TAB Q6P PRN 02/22 1315 AC Acetaminophen PO Insulin Aspart 4 UNITS ONCE ONE 02/22 2115 DC 08 SC 02/22 2116 2112 Insulin Aspart 0 TIDAC/HS 02/22 1700 AC 02/23 SC 0833 Insulin Detemir 15 UNITS BID 02/22 1630 AC 02/22 SC 2220 Insulin Human Regular 100 UNIT ONCE ONE 02/22 1200 DC 02/22 Sodium Chloride 100 ML IV 02/22 1201 1306 Insulin Human Regular 8 UNITS ONCE ONE 02/22 1200 DC 02/22 IV 02/22 1201 1210 Losartan Potassium 100 MG DAILY 02/23 1000 AC PO Morphine Sulfate 2 MG Q4P PRN 02/23 0800 AC IV Morphine Sulfate 2 MG Q4P PRN 02/22 1315 DC IV Nicotine 21 MG DAILY 02/22 1600 AC 02/22 TOP 1714 Pantoprazole Sodium 0 .STK-MED ONE 02/22 1338 DC IV Pantoprazole Sodium 40 MG DAILY 02/22 1311 AC 02/22 IV 1325 Potassium Chloride 40 MEQ Q4H 02/22 2014 DC Sodium Chloride 1,000 ML IV Potassium Chloride 20 MEQ Q20H 02/22 1630 DC 02/22 Dextrose/Sodium 1,000 ML IV 1705 Chloride Potassium Chloride 40 MEQ Q8H 02/22 1430 DC 02/22 Sodium Chloride 1,000 ML IV 02/22 2013 1614 Sodium Chloride 1,000 ML BOLUS ONE 02/22 1115 DC 08 IV 02/22 1214 1130 Sodium Chloride 1,000 ML BOLUS ONE 02/22 1115 DC 02/22 IV 02/22 1214 1235 Sodium Chloride 1,000 ML BOLUS ONE 02/22 1115 CAN IV 02/22 1214 Tiotropium [place] 1 PUF DAILY 02/23 1000 AC INH Vital Signs & I&O Last 24 Hrs of Vitals and I&O: Vital Signs Date Time Temp Pulse Resp B/P B/P Pulse O2 O2 Flow FiO2 Mean Ox Delivery Rate 02/23 0400 94 Nasal 3.0L Cannula 02/23 0000 95 Nasal 2.0L Cannula 02/23 0000 97.8 68 20 110/60 95 Nasal 2.0L Cannula 02/22 2100 Nasal 2.0L Cannula 02/22 2000 95 Nasal 2.0L Cannula 02/22 1600 92 Room Air 02/22 1600 97.9 80 20 100/64 92 Room Air 02/22 1350 92 Room Air 02/22 1350 97.1 88 22 108/62 92 Room Air 02/22 1312 97.6 84 20 102/61 92 Room Air Room Air 02/22 1204 97.5 79 18 114/63 93 Room Air 02/22 1152 Room Air Room Air 02/22 1016 95.9 98 20 125/71 92 Room Air Room Air Intake & Output 02/23 1600 02/23 0800 02/23 0000 Intake Total 100 873 Output Total 500 50 Balance -400 823 Intake, IV 673 Intake, Oral 100 200 Number 1 2 Bowel Movements Output, Urine 500 50 Patient 80 lb 3 oz Weight Weight Bed scale Measurement Method Laboratory Tests 02/23 02/22 02/22 0400 2300 1730 Chemistry Sodium (137 - 145 mmol/L) 137 Cancelled Potassium (3.5 - 5.1 mmol/L) 4.0 Cancelled Chloride (98 - 107 mmol/L) 103 Cancelled Carbon Dioxide (22 - 30 mmol/L) 26 Cancelled Anion Gap (5 - 16) 8 Cancelled BUN (9 - 20 mg/dL) 29 H Cancelled Creatinine (0.7 - 1.2 mg/dL) 0.9 Cancelled Estimated GFR (>60 ml/min) > 60 Glucose (65 - 99 mg/dL) 245 H Cancelled Calcium (8.4 - 10.2 mg/dL) 9.0 Cancelled Phosphorus (2.5 - 4.5 mg/dL) 3.1 Cancelled Magnesium (1.6 - 2.3 mg/dL) 2.1 Cancelled Total Bilirubin (0.2 - 1.3 mg/dL) 0.4 Cancelled AST (17 - 59 U/L) 11 L Cancelled ALT (21 - 72 U/L) 28 Cancelled Troponin I (<0.11 ng/ml) Pending < 0.01 Albumin (3.5 - 5.0 g/dL) 2.8 L Cancelled Hematology CBC w Diff NO MAN DIFF REQ WBC (4.8 - 10.8 /CUMM) 8.9 RBC (4.70 - 6.10 /CUMM) 4.66 L Hgb (14.0 - 18.0 G/DL) 14.0 Hct (42 - 52 %) 42.6 MCV (80.0 - 94.0 FL) 91.5 MCH (27.0 - 31.0 PG) 30.1 MCHC (33.0 - 37.0 G/DL) 32.9 L RDW (11.5 - 14.5 %) 13.0 Plt Count (130 - 400 /CUMM) 264 MPV (7.4 - 10.4 FL) 10.1 Gran % (42.2 - 75.2 %) 63.2 Lymphocytes % (20.5 - 51.1 %) 24.2 Monocytes % (1.7 - 9.3 %) 9.1 Eosinophils % (0 - 5 %) 2.9 Basophils % (0.0 - 2.0 %) 0.6 Absolute Granulocytes (1.4 - 6.5 /CUMM) 5.6 Absolute Lymphocytes (1.2 - 3.4 /CUMM) 2.2 Absolute Monocytes (0.10 - 0.60 /CUMM) 0.8 H Absolute Eosinophils (0.0 - 0.7 /CUMM) 0.3 Absolute Basophils (0.0 - 0.2 /CUMM) 0.1 02/22 02/22 02/22 02/22 1710 1530 1327 1327 Chemistry Sodium (137 - 145 mmol/L) 137 134 L 136 L Potassium (3.5 - 5.1 mmol/L) 4.2 4.1 4.6 Chloride (98 - 107 mmol/L) 103 102 97 L Carbon Dioxide (22 - 30 mmol/L) 20 L 19 L 19 L Anion Gap (5 - 16) 14 13 19 H BUN (9 - 20 mg/dL) 35 H 37 H 39 H Creatinine (0.7 - 1.2 mg/dL) 0.8 0.9 1.0 Estimated GFR (>60 ml/min) > 60 > 60 > 60 Glucose (65 - 99 mg/dL) 231 H 355 H 512 *H Lactic Acid (0.7 - 2.1 mmol/L) 1.8 Calcium (8.4 - 10.2 mg/dL) 9.7 9.7 9.9 Phosphorus (2.5 - 4.5 mg/dL) 2.5 2.9 3.7 Magnesium (1.6 - 2.3 mg/dL) 2.1 2.2 2.2 Total Bilirubin (0.2 - 1.3 mg/dL) 0.4 0.5 0.6 AST (17 - 59 U/L) 13 L 11 L 13 L ALT (21 - 72 U/L) 26 29 29 Troponin I (<0.11 ng/ml) < 0.01 Albumin (3.5 - 5.0 g/dL) 3.3 L 3.3 L 3.9 25-OH Vitamin D Total (30 - 100 ng/ml) 13.4 L 02/22 02/22 1148 1123 Blood Gas Bicarbonate Actual (22 - 26 MEQ/L) 16 L Mixed VBG pH (7.31 - 7.41 PH) 7.30 L Mixed VBG pCO2 (41 - 51 TORR) 33 L Mixed VBG O2 Saturation (35 - 45 TORR) 50 H Carboxyhemoglobin (1.5 - 5.0 %) 3.3 O2 Concentration % RA O2 Delivery Method RA Miscellaneous Phlebotomy Draw Site RT Urines Urine Color (YEL,AMB,STR) STRAW Urine Clarity (CLEAR) CLEAR Urine pH (5.0 - 8.0) 6.0 Ur Specific [place] (1.001 - 1.035) 1.010 Urine Protein (NEG,<30 MG/DL) NEG Urine Ketones (NEG) 15 H Urine Nitrite (NEG) NEG Urine Bilirubin (NEG) NEG Urine Urobilinogen (0.1 - 1.0 EU/dl) 0.2 Ur Leukocyte Esterase (NEG) NEG Ur Microscopic EXAM NOT REQUIRED Urine Hemoglobin (NEG) NEG Urine Glucose (N MG/DL) >=1000 H 02/22 02/22 1100 1058 Chemistry Sodium (137 - 145 mmol/L) 129 L Potassium (3.5 - 5.1 mmol/L) 5.5 H Chloride (98 - 107 mmol/L) 89 L Carbon Dioxide (22 - 30 mmol/L) 18 L Anion Gap (5 - 16) 22 H BUN (9 - 20 mg/dL) 42 H Creatinine (0.7 - 1.2 mg/dL) 1.1 Estimated GFR (>60 ml/min) > 60 BUN/Creatinine Ratio (7 - 25 %) 38.2 H Glucose (65 - 99 mg/dL) 731 *H Hemoglobin A1c (4.2 - 5.8 %) Pending Lactic Acid (0.7 - 2.1 mmol/L) 1.6 Calcium (8.4 - 10.2 mg/dL) 11.5 H Magnesium (1.6 - 2.3 mg/dL) 2.4 H Total Bilirubin (0.2 - 1.3 mg/dL) 0.6 GGT (15 - 73 U/L) 79 H AST (17 - 59 U/L) 13 L ALT (21 - 72 U/L) 32 Alkaline Phosphatase (< 127 U/L) 223 H Troponin I (<0.11 ng/ml) < 0.01 Total Protein (6.3 - 8.2 g/dL) 6.7 Albumin (3.5 - 5.0 g/dL) 4.0 Globulin (1.9 - 4.2 gm/dL) 2.7 Albumin/Globulin Ratio (1.1 - 2.2 %) 1.5 TSH (0.270 - 4.200 uIU/mL) 2.210 Free T4 (0.78 - 2.44 ng/dL) 1.42 Cortisol AM Sample (4.46 - 22.7 ug/dL) 24.9 H Hematology CBC w Diff NO MAN DIFF REQ WBC (4.8 - 10.8 /CUMM) 10.0 RBC (4.70 - 6.10 /CUMM) 5.73 Hgb (14.0 - 18.0 G/DL) 17.0 Hct (42 - 52 %) 52.1 H MCV (80.0 - 94.0 FL) 90.9 MCH (27.0 - 31.0 PG) 29.7 MCHC (33.0 - 37.0 G/DL) 32.7 L RDW (11.5 - 14.5 %) 12.9 Plt Count (130 - 400 /CUMM) 340 MPV (7.4 - 10.4 FL) 10.5 H Gran % (42.2 - 75.2 %) 76.4 H Lymphocytes % (20.5 - 51.1 %) 14.9 L Monocytes % (1.7 - 9.3 %) 7.3 Eosinophils % (0 - 5 %) 0.9 Basophils % (0.0 - 2.0 %) 0.5 Absolute Granulocytes (1.4 - 6.5 /CUMM) 7.7 H Absolute Lymphocytes (1.2 - 3.4 /CUMM) 1.5 Absolute Monocytes (0.10 - 0.60 /CUMM) 0.7 H Absolute Eosinophils (0.0 - 0.7 /CUMM) 0.1 Absolute Basophils (0.0 - 0.2 /CUMM) 0.1 Toxicology Acetone Level (NEGATIVE) POSITIVE AT 1:8 DIL Cancelled Microbiology Date/Time Procedure - Status Source Growth 02/22 1400 Surveillance Culture - RECD UPPER RESP 02/22 1400 Surveillance Culture - RECD GI 02/22 1230 Blood Culture - RECD BLOOD 02/22 1100 Blood Culture - RECD BLOOD Impression/Plan Impression/Plan Impression/Plan: General Appearance Alert, Oriented X3, Cooperative, No Acute Distress Skin Temp/Moisture Exam: Warm/Dry HEENT Atraumatic, PERRLA, EOMI Neck Supple, No JVD Cardiovascular Regular Rate, Normal S1, Normal S2 Lungs Normal Air Movement, No added sound Abdomen Normal Bowel Sounds, Soft, No Tenderness, obese Extremities No Edema, Normal Pulses PT with mod copd, ihd, recent pci, on dapt, ongoing smoking, Barretts esophagus, recent H.pylori postive gastritis, peripheral vascular disease, probable obesity hypoventilation syndrome, chronic hypercalcemia, chronic mild erythrocytosis probably related to COPD and obesity hypoventilation syndrome now has * Resolved Hyperosmolar diabetes with mild ketosis with significant anion gap acidosis. This was preceded by significant osmotic diuresis and dehydration * Dehydration with mild acute kidney injury now resolved * Ischemic heart disease with previous stent on dual antiplatelet therapy * Moderate COPD, no active exacerbation * Mild chronic erythrocytosis most likely related to COPD and obesity hypoventilation probable sleep apnea needs to be evaluated upon dc * VIt D def * Recent H. pylori gastritis with Campos's esophagus, colon polyps stable./ needs to complete his rx for Hpylori soon RECOMMENDATION Cont insulin as ordered by pete Singh to the floor Recheck troponin Inform Dr. Layne about his admission Continue his dual antiplatelet therapy , proton pump inhibitor, resume asa Subcutaneous heparin smoking cessation counselling done Out pt sleep study COnt his out pt inhalers - spiriva on epuff daily and prn albuterol
--- NOTE | 2018-02-23 11:09 | Cons- Cardiology ---
General Information and HPI Consulting Request Date of Consult: 02/23/18 Requested By: Maral LEON,Tung Gomez Reason for Consult: NSVT Source of Information: patient, old records Exam Limitations: poor historian History of Present Illness: Mr. Ezio Rogers is a 78-year-old obese male with a long-standing history of heavy tobacco use (one and a half packs per day 60), COPD, hypertension, diabetes mellitus, and coronary artery disease (s/p NTEMI with PCI/CAROLE [Resolute ] to his dominant LCx with 0% residual stenosis and KIM-3 flow on 02/24/2017), and medical noncompliance who presented to the ED with weakness, weight loss, polyuria, polydipsia, blurry vision, etc. and who was found to be in diabetic ketoacidosis who we were asked to evaluate and help manage in regard to ventricular ectopy. He denies any recent chest discomfort, palpitations, lower extremity edema, dry cough, syncope, near-syncope, or claudication. He does admit to shortness of breath on more than usual amounts of exertion which is unchanged from previously. His last echocardiogram was performed on 02/23/2017 and revealed a normal size left ventricle with mild concentric left ventricular hypertrophy, no regional wall motion abnormalities, and normal systolic function with an estimated EF of greater than 65%, normal right ventricular size and function, normal atrial size , age-related valvular changes, no pericardial effusion, and a mildly dilated proximal ascending aorta. The Doppler portion of the study revealed mild mitral and trace pulmonic regurgitation, and stage I diastolic dysfunction. We were unable to estimate his right ventricular systolic pressure. He was last seen in the office on 07/31/2017 with a plan to initiate statin and low-dose beta mackenzie therapy, but he never returned for follow-up. Allergies/Medications Allergies: Coded Allergies: No Known Allergies (02/22/17) Home Med List: Albuterol Sulfate (Proair Hfa) 90 MCG HFA.AER.AD 2 PUF INH Q4-6 PRN PRN COPD (Reported) Amlodipine Besylate 2.5 MG TABLET 1 TAB PO DAILY BP (Reported) Aspirin (Ecotrin*) 81 MG TABLET. 81 MG PO DAILY NSTEMI Clopidogrel Bisulfate (Plavix) 75 MG TABLET 75 MG PO DAILY NSTEMI To be taken for 1 year Losartan Potassium 100 MG TABLET 1 TAB PO DAILY HTN (Reported) Tiotropium [place] (Spiriva) 18 MCG CAP.W.DEV 1 CAP INH DAILY COPD (Reported) Review of Systems Review of Systems: A 14 point system review was obtained was noncontributory, other than as above. Past History Travel History Traveled to [place] past 21 day No Medical History Blood Transfusion Hx: No Neurological: NONE EENT: NONE Cardiovascular: hypertension, myocardial infarction, STENT Respiratory: COPD Gastrointestinal: GERD Hepatic: NONE Renal: NONE Musculoskeletal: NONE Psychiatric: NONE Endocrine: NONE Blood Disorders: NONE Cancer(s): NONE [employer] TE[employer]ER/Reproductive: NONE Surgical History Surgical History: arthroscopy Family History Relations & Conditions If Any: SON (Diabetes mellitus, muscular dystrophy). Relation not specified for: Unknown family medical history Psychosocial History Where Do You Live? Home Services at Home: None Smoking Status: Current Everyday Smoker ETOH Use: denies use Illicit Drug Use: denies illicit drug use Functional Ability ADLs Independent: dressing, eating, toileting, bathing. Ambulation: independent IADLs Independent: shopping, housework, finances, food prep, telephone, transportation , medication admin. Exam & Diagnostic Data Vital Signs and I&O Vital Signs Date Time Temp Pulse Resp B/P B/P Pulse O2 O2 Flow FiO2 Mean Ox Delivery Rate 02/23 0949 77 103/02/23 0949 77 10302/23 0400 94 Nasal 3.0L Cannula 02/23 0000 95 Nasal 2.0L Cannula 02/23 0000 97.8 68 20 110/60 95 Nasal 2.0L Cannula 02/22 2100 Nasal 2.0L Cannula 02/22 2000 95 Nasal 2.0L Cannula 02/22 1600 92 Room Air 02/22 1600 97.9 80 20 100/64 92 Room Air 02/22 1350 92 Room Air 02/22 1350 97.1 88 22 108/62 92 Room Air 02/22 1312 97.6 84 20 102/61 92 Room Air Room Air 02/22 1204 97.5 79 18 114/63 93 Room Air Intake & Output 02/23 1600 02/23 0800 /09 0000 02/22 1600 02/22 0800 02/22 0000 Intake Total 850 497 7464 Output Total 500 50 420 Balance -478 912 0073 Intake, IV 673 1999 Intake, Oral 100 200 Number 1 2 Bowel Movements Output, Urine 500 50 420 Patient 80 lb 3 oz 176 lb Weight Weight Bed scale Bed scale Measurement Method Physical Exam: Well-developed, overweight elderly male in no acute distress. Vital signs: See above. HEENT: Normocephalic, atraumatic, EOMI, slightly dry mucous membranes. Neck: No JVD, no bruits. Lungs: Decreased breath sounds bilaterally. Heart: S1, S2 with no murmur, gallop, or rub appreciated. PMI fifth ICS at [facility]. Abdomen: Soft, nontender, positive bowel sounds. Extremities: No edema. Labs/[place] Results: Laboratory Tests 02/23 02/23 02/22 0915 0400 2300 Chemistry Sodium (137 - 145 mmol/L) 137 Potassium (3.5 - 5.1 mmol/L) 4.0 Chloride (98 - 107 mmol/L) 103 Carbon Dioxide (22 - 30 mmol/L) 26 Anion Gap (5 - 16) 8 BUN (9 - 20 mg/dL) 29 H Creatinine (0.7 - 1.2 mg/dL) 0.9 Estimated GFR (>60 ml/min) > 60 Glucose (65 - 99 mg/dL) 245 H Calcium (8.4 - 10.2 mg/dL) 9.0 Phosphorus (2.5 - 4.5 mg/dL) 3.1 Magnesium (1.6 - 2.3 mg/dL) 2.1 Total Bilirubin (0.2 - 1.3 mg/dL) 0.4 AST (17 - 59 U/L) 11 L ALT (21 - 72 U/L) 28 Troponin I (<0.11 ng/ml) < 0.01 < 0.01 < 0.01 Albumin (3.5 - 5.0 g/dL) 2.8 L Hematology CBC w Diff NO MAN DIFF REQ WBC (4.8 - 10.8 /CUMM) 8.9 RBC (4.70 - 6.10 /CUMM) 4.66 L Hgb (14.0 - 18.0 G/DL) 14.0 Hct (42 - 52 %) 42.6 MCV (80.0 - 94.0 FL) 91.5 MCH (27.0 - 31.0 PG) 30.1 MCHC (33.0 - 37.0 G/DL) 32.9 L RDW (11.5 - 14.5 %) 13.0 Plt Count (130 - 400 /CUMM) 264 MPV (7.4 - 10.4 FL) 10.1 Gran % (42.2 - 75.2 %) 63.2 Lymphocytes % (20.5 - 51.1 %) 24.2 Monocytes % (1.7 - 9.3 %) 9.1 Eosinophils % (0 - 5 %) 2.9 Basophils % (0.0 - 2.0 %) 0.6 Absolute Granulocytes (1.4 - 6.5 /CUMM) 5.6 Absolute Lymphocytes (1.2 - 3.4 /CUMM) 2.2 Absolute Monocytes (0.10 - 0.60 /CUMM) 0.8 H Absolute Eosinophils (0.0 - 0.7 /CUMM) 0.3 Absolute Basophils (0.0 - 0.2 /CUMM) 0.1 02/22 02/22 02/22 02/22 02/22 1730 1710 1530 1327 1327 Chemistry Sodium (137 - 145 mmol/L) Cancelled 137 134 L 136 L Potassium (3.5 - 5.1 mmol/L) Cancelled 4.2 4.1 4.6 Chloride (98 - 107 mmol/L) Cancelled 103 102 97 L Carbon Dioxide (22 - 30 mmol/L) Cancelled 20 L 19 L 19 L Anion Gap (5 - 16) Cancelled 14 13 19 H BUN (9 - 20 mg/dL) Cancelled 35 H 37 H 39 H Creatinine (0.7 - 1.2 mg/dL) Cancelled 0.8 0.9 1.0 Estimated GFR (>60 ml/min) > 60 > 60 > 60 Glucose (65 - 99 mg/dL) Cancelled 231 H 355 H 512 *H Lactic Acid (0.7 - 2.1 mmol/L) 1.8 Calcium (8.4 - 10.2 mg/dL) Cancelled 9.7 9.7 9.9 Phosphorus (2.5 - 4.5 mg/dL) Cancelled 2.5 2.9 3.7 Magnesium (1.6 - 2.3 mg/dL) Cancelled 2.1 2.2 2.2 Total Bilirubin (0.2 - 1.3 mg/dL) Cancelled 0.4 0.5 0.6 AST (17 - 59 U/L) Cancelled 13 L 11 L 13 L ALT (21 - 72 U/L) Cancelled 26 29 29 Troponin I (<0.11 ng/ml) < 0.01 Albumin (3.5 - 5.0 g/dL) Cancelled 3.3 L 3.3 L 3.9 25-OH Vitamin D Total (30 - 100 ng/ml) 13.4 L 02/22 02/22 1148 1123 Blood Gas Bicarbonate Actual (22 - 26 MEQ/L) 16 L Mixed VBG pH (7.31 - 7.41 PH) 7.30 L Mixed VBG pCO2 (41 - 51 TORR) 33 L Mixed VBG O2 Saturation (35 - 45 TORR) 50 H Carboxyhemoglobin (1.5 - 5.0 %) 3.3 O2 Concentration % RA O2 Delivery Method RA Miscellaneous Phlebotomy Draw Site RT Urines Urine Color (YEL,AMB,STR) STRAW Urine Clarity (CLEAR) CLEAR Urine pH (5.0 - 8.0) 6.0 Ur Specific [place] (1.001 - 1.035) 1.010 Urine Protein (NEG,<30 MG/DL) NEG Urine Ketones (NEG) 15 H Urine Nitrite (NEG) NEG Urine Bilirubin (NEG) NEG Urine Urobilinogen (0.1 - 1.0 EU/dl) 0.2 Ur Leukocyte Esterase (NEG) NEG Ur Microscopic EXAM NOT REQUIRED Urine Hemoglobin (NEG) NEG Urine Glucose (N MG/DL) >=1000 H 02/22 02/22 1100 1058 Chemistry Sodium (137 - 145 mmol/L) 129 L Potassium (3.5 - 5.1 mmol/L) 5.5 H Chloride (98 - 107 mmol/L) 89 L Carbon Dioxide (22 - 30 mmol/L) 18 L Anion Gap (5 - 16) 22 H BUN (9 - 20 mg/dL) 42 H Creatinine (0.7 - 1.2 mg/dL) 1.1 Estimated GFR (>60 ml/min) > 60 BUN/Creatinine Ratio (7 - 25 %) 38.2 H Glucose (65 - 99 mg/dL) 731 *H Hemoglobin A1c (4.2 - 5.8 %) 12.9 H Lactic Acid (0.7 - 2.1 mmol/L) 1.6 Calcium (8.4 - 10.2 mg/dL) 11.5 H Magnesium (1.6 - 2.3 mg/dL) 2.4 H Total Bilirubin (0.2 - 1.3 mg/dL) 0.6 GGT (15 - 73 U/L) 79 H AST (17 - 59 U/L) 13 L ALT (21 - 72 U/L) 32 Alkaline Phosphatase (< 127 U/L) 223 H Troponin I (<0.11 ng/ml) < 0.01 Total Protein (6.3 - 8.2 g/dL) 6.7 Albumin (3.5 - 5.0 g/dL) 4.0 Globulin (1.9 - 4.2 gm/dL) 2.7 Albumin/Globulin Ratio (1.1 - 2.2 %) 1.5 TSH (0.270 - 4.200 uIU/mL) 2.210 Free T4 (0.78 - 2.44 ng/dL) 1.42 Cortisol AM Sample (4.46 - 22.7 ug/dL) 24.9 H Hematology CBC w Diff NO MAN DIFF REQ WBC (4.8 - 10.8 /CUMM) 10.0 RBC (4.70 - 6.10 /CUMM) 5.73 Hgb (14.0 - 18.0 G/DL) 17.0 Hct (42 - 52 %) 52.1 H MCV (80.0 - 94.0 FL) 90.9 MCH (27.0 - 31.0 PG) 29.7 MCHC (33.0 - 37.0 G/DL) 32.7 L RDW (11.5 - 14.5 %) 12.9 Plt Count (130 - 400 /CUMM) 340 MPV (7.4 - 10.4 FL) 10.5 H Gran % (42.2 - 75.2 %) 76.4 H Lymphocytes % (20.5 - 51.1 %) 14.9 L Monocytes % (1.7 - 9.3 %) 7.3 Eosinophils % (0 - 5 %) 0.9 Basophils % (0.0 - 2.0 %) 0.5 Absolute Granulocytes (1.4 - 6.5 /CUMM) 7.7 H Absolute Lymphocytes (1.2 - 3.4 /CUMM) 1.5 Absolute Monocytes (0.10 - 0.60 /CUMM) 0.7 H Absolute Eosinophils (0.0 - 0.7 /CUMM) 0.1 Absolute Basophils (0.0 - 0.2 /CUMM) 0.1 Toxicology Acetone Level (NEGATIVE) POSITIVE AT 1:8 DIL Cancelled Diagnostic Data EKG Results 02/23/2018: Sinus rhythm and within normal limits. CXR Results 02/22/2018: Bibasilar opacities unchanged likely scarring and/or discoid atelectasis. Assessment/Plan Assessment/Plan [id number] w/ hx heavy tobacco use, HTN, DM, & CAD (s/p NTEMI with PCI/CAROLE [ Resolute] to his dominant LCx) who presented w/ DKA who we were asked to evaluate and help manage in regard to ventricular ectopy. A review of the rhythm strip in question revealed normal sinus rhythm and baseline artifact. No ventricular ectopy was found to be present. Mr. Rogers is presently stable from a cardiovascular standpoint and is on a medical regimen s/p NSTEMI of dual antiplatelet therapy (aspirin, clopidogrel), and an angiotensin receptor mackenzie. Recommendations: * Reasonable to give him a trial on low-dose beta mackenzie therapy (metoprolol tartrate 12.5 mg twice daily). * Appropriate to initiate statin therapy (atorvastatin 40 mg daily). * Needs smoking cessation counseling. * Continue to follow up on recommendations from endocrinology. * Continue DVT prophylaxis. Further recommendations will follow, Thank you. Consult Acknowledgment - Thank you for your consult request.
[2018-02-23 12:00] VITALS: BP 120/80
[2018-02-23 16:00] VITALS: BP 108/70
--- NOTE | 2018-02-23 18:06 | ECHOCARDIOGRAM REPORT ---
CHILANGO PEÑALOZA Age: 78 : 1940 Gender: M Exam Date: 02/23/2018 11:01 Exam Location: [facility] Ht (in): 65 Wt (lb): 80 BSA: 1.27 BP: 92 / 68 Ordering Physician: Sonal Peres MD Referring Physician: Sonal Peres MD Technologist: Darshan Siu [facility] Room Number: 105-1 Indications: VT Rhythm: Sinus Technical Quality: Fair FINDINGS Left Ventricle Normal size left ventricle. Normal left ventricular wall thickness. No obvious regional wall motion abnormalities. Normal left ventricular ejection fraction visually estimated at >60%. Abnormal relaxation filling pattern of the left ventricle for age (stage 1 diastolic dysfunction). Right Ventricle Right ventricle at upper limits of normal. Right Atrium Normal right atrial size. Left Atrium Normal left atrial size. Mitral Valve Mild mitral annular calcification. Mitral valve mildly thickened. Trace mitral regurgitation. Aortic Valve Trileaflet aortic valve. No aortic valve stenosis or regurgitation. Tricuspid Valve Tricuspid valve not well visualized, grossly normal. Trace tricuspid regurgitation. Mild pulmonary hypertension. Right ventricular systolic pressure estimated to be elevated at 42 mmHg. Pulmonic Valve Pulmonic valve not well visualized, grossly normal. Trace pulmonic regurgitation. Pericardium No pericardial effusion. Great Vessels Normal size aortic root. Mildly dilated proximal ascending aorta (tube). Normal size inferior vena cava. CONCLUSIONS Normal size left ventricle. Normal left ventricular wall thickness. No obvious regional wall motion abnormalities. Normal left ventricular ejection fraction visually estimated at > 60%. Abnormal relaxation filling pattern of the left ventricle for age (stage 1 diastolic dysfunction). Right ventricle at upper limits of normal. Normal atrial size. Trace mitral regurgitation. Trace tricuspid regurgitation. Mild pulmonary hypertension. Trace pulmonic regurgitation. Mildly dilated proximal ascending aorta (tube). Car Layne M.D. (Electronically Signed) Final Date: 23 February 2018 18:05 MEASUREMENTS (Male / Female) Normal Values 2D ECHO LV Diastolic Diameter PLAX 4.8 cm 4.2 - 5.9 / 3.9 - 5.3 cm LV Systolic Diameter PLAX 2.9 cm 2.1 - 4.0 cm LV Fractional Shortening PLAX 39.6 % 25 - 46 % LV Ejection Fraction 2D Teich 70.0 % IVS Diastolic Thickness 1.0 cm LVPW Diastolic Thickness 1.0 cm LV Relative Wall Thickness 0.4 RV Internal Dim ED PLAX 3.7 cm 1.9 - 3.8 cm LVOT Diameter 2.0 cm Aortic Root Diameter 3.1 cm LA Systolic Diameter LX 2.5 cm 3.0 - 4.0 / 2.7 - 3.8 cm LA Volume 30.0 cm 18 - 58 / 22 - 52 cm Ascending Aorta Diameter 3.8 cm DOPPLER AV Peak Velocity 148.0 cm/s AV Peak Gradient 8.8 mmHg AV Mean Velocity 95.7 cm/s AV Mean Gradient 4.0 mmHg AV Velocity Time Integral 28.5 cm LVOT Peak Velocity 106.0 cm/s LVOT Peak Gradient 4.5 mmHg LVOT Mean Velocity 74.4 cm/s LVOT Mean Gradient 3.0 mmHg LVOT Velocity Time Integral 22.5 cm LVOT Stroke Volume 70.7 cm AV Area Cont Eq vti 2.5 cm AV Area Cont Eq pk 2.3 cm MV Peak Velocity 110.0 cm/s MV Peak Gradient 4.8 mmHg MV Mean Velocity 63.9 cm/s MV Mean Gradient 2.0 mmHg Mitral E Point Velocity 69.6 cm/s Mitral A Point Velocity 102.0 cm/s Mitral E to A Ratio 0.7 MV PHT Velocity 92.3 cm/s MV Deceleration [place] 328.0 cm/s MV Pressure Half Time 84.4 ms MV Area PHT 2.6 cm MV Deceleration Time 243.0 ms TR Peak Velocity 303.0 cm/s TR Peak Gradient 36.7 mmHg Right Atrial Pressure 5.0 mmHg Pulmonary Artery Systolic Pressu 41.7 mmHg Right Ventricular Systolic Press 41.7 mmHg PV Peak Velocity 138.0 cm/s PV Peak Gradient 7.6 mmHg PV Mean Velocity 82.6 cm/s PV Mean Gradient 3.0 mmHg PV Velocity Time Integral 25.4 cm LV E' Lateral Velocity 7.8 cm/s Mitral E to LV E' Lateral Ratio 8.9 LV E' Septal Velocity 8.1 cm/s Mitral E to LV E' Septal Ratio 8.6
[2018-02-23 23:12] VITALS: BP 104/60
[2018-02-24 06:41] LABS: ABSOLUTE BASOPHIL COUNT 0 /CUMM (0.0-0.2); ABSOLUTE EOSINOPHIL COUNT 0.3 /CUMM (0.0-0.7); ABSOLUTE GRANULOCYTE CT 4.7 /CUMM (1.4-6.5); ABSOLUTE LYMPH COUNT 1.9 /CUMM (1.2-3.4); ABSOLUTE MONOCYTE COUNT 0.8 /CUMM (0.10-0.60); BASOPHIL % 0.5 % (0.0-2.0); EOSINOPHIL % 3.4 % (0-5); GRANULOCYTE % 60.6 % (42.2-75.2); HEMATOCRIT 45.5 % (42-52); MEAN CORPUSCULAR HGB 29.6 PG (27.0-31.0); MEAN CORPUSCULAR HGB CONC 32.4 G/DL (33.0-37.0); MEAN CORPUSCULAR VOLUME 91.6 FL (80.0-94.0); MEAN PLATELET VOLUME 9.9 FL (7.4-10.4); PLATELET COUNT 256 /CUMM (130-400); RBC DISTRIBUTION WIDTH 13.2 % (11.5-14.5); RED BLOOD CELL CT 4.97 /CUMM (4.70-6.10); WHITE BLOOD CELL COUNT 7.8 /CUMM (4.8-10.8)
--- NOTE | 2018-02-24 07:26 | PN- Diabetes ---
Assessment/Plan Diabetes Assessment: The patient states he feels well this morning. He is eating okay. His oxygen saturation is still somewhat low on room air and he is on oxygen. He has underlying COPD and is a heavy smoker. Fingerstick blood sugars were high yesterday. Plan: Suggest continue the present insulin. Add Metformin 500 mg twice a day with breakfast and with supper. Dietary consult. Subjective Subjective: Feels okay Review of Systems Constitutional: Denies: chills, malaise. Cardiovascular: Denies: chest pain. Respiratory: Denies: cough, short of breath. Gastrointestinal: Denies: abdominal pain, nausea. Skin: Reports: no symptoms. Objective Last 24 Hrs of Vital Signs/I&O Vital Signs Date Time Temp Pulse Resp B/P B/P Pulse O2 O2 Flow FiO2 Mean Ox Delivery Rate 02/24 0000 94 Nasal 4.0L Cannula 02/232 98.3 74 18 104/60 94 Nasal 4.0L Cannula 02/235 76 18 110/70 02/23 1600 98 Nasal 4.0L Cannula 02/23 1600 97.7 88 18 108/70 97 Nasal 4.0L Cannula 02/23 1515 88 100/64 02/23 1200 97.7 82 20 120/80 96 Nasal 4.0L Cannula 02/23 0949 77 02/2349 77 02/23 96 Nasal 3.0L Cannula Intake & Output 02/24 0800 02/24 0000 02/23 1600 Intake Total 480 420 720 Output Total 600 600 600 Balance -120 -180 120 Intake, IV 0 Intake, Oral 480 420 720 Output, Urine 600 600 600 Vital Signs Date Time Temp Pulse Resp B/P B/P Pulse O2 O2 Flow FiO2 Mean Ox Delivery Rate 02/24 0000 94 Nasal 4.0L Cannula 02/232 98.3 74 18 104/60 94 Nasal 4.0L Cannula 02/235 76 18 110/70 02/23 1600 98 Nasal 4.0L Cannula 02/23 1600 97.7 88 18 108/70 97 Nasal 4.0L Cannula 02/23 1515 88 100/64 02/23 1200 97.7 82 20 120/80 96 Nasal 4.0L Cannula 02/23 0949 77 02/2349 77 02/23 08 96 Nasal 3.0L Cannula Intake & Output 02/24 0802/24 0000 02/23 1600 Intake Total 480 420 720 Output Total 600 600 600 Balance -120 -180 120 Intake, IV 0 Intake, Oral 480 420 720 Output, Urine 600 600 600 Physical Exam General Appearance: alert, awake, comfortable Head: normal appearance Respiratory: normal breath sounds Abdomen: normal bowel sounds Extremities: normal inspection Current Medications: Current Medications Sig/Mary Start time Last Medication Dose Route Stop Time Status Admin Acetaminophen 650 MG .STK-MED ONE 02/23 2303 DC PO 02/23 2304 Acetaminophen 650 MG Q6P PRN 02/22 1315 AC 02/23 PO 2306 Albuterol Sulfate 2 PUF Q4-6 PRN PRN 02/22 1500 AC INH Amlodipine Besylate 2.5 MG DAILY 02/23 1000 AC 02/23 PO 0949 Aspirin Buffered 81 MG DAILY 02/23 1236 AC 02/23 PO 1512 Atorvastatin Calcium 40 MG 1700 02/23 1700 AC 02/23 PO 1639 Clopidogrel Bisulfate 75 MG DAILY 02/23 1000 AC 02/23 PO 0949 Heparin Sodium 5,000 UNIT Q8 02/22 1400 AC 02/24 (Porcine) SC 0603 Hydrocodone Bitart/ 1 TAB Q6P PRN 02/22 1315 AC Acetaminophen PO Insulin Aspart 0 TIDAC/HS 02/22 1700 AC 02/23 SC 2119 Insulin Detemir 15 UNITS BID 02/22 1630 AC 02/23 SC 2216 Losartan Potassium 100 MG DAILY 02/23 1000 AC 02/23 PO 0949 Metoprolol Tartrate 12.5 MG BID 02/23 1237 AC 02/23 PO 2215 Morphine Sulfate 2 MG Q4P PRN 02/23 0800 AC IV Morphine Sulfate 2 MG Q4P PRN 02/22 1315 DC IV Nicotine 21 MG DAILY 02/22 1600 AC 02/23 TOP 0949 Omeprazole 40 MG DAILY AC 02/24 0700 AC 02/24 PO 0603 Pantoprazole Sodium 40 MG DAILY 02/22 1311 DC 02/23 IV 0949 Tiotropium [place] 1 PUF DAILY 02/23 1000 AC 02/23 INH 0950 Findings Pertinent Lab/[facility] Results: Laboratory Tests 02/24 02/23 0600 0915 Chemistry Sodium (137 - 145 mmol/L) 138 Potassium (3.5 - 5.1 mmol/L) 4.0 Chloride (98 - 107 mmol/L) 104 Carbon Dioxide (22 - 30 mmol/L) 27 Anion Gap (5 - 16) 7 BUN (9 - 20 mg/dL) 20 Creatinine (0.7 - 1.2 mg/dL) 0.7 Estimated GFR (>60 ml/min) > 60 Glucose (65 - 99 mg/dL) 238 H Calcium (8.4 - 10.2 mg/dL) 9.1 Phosphorus (2.5 - 4.5 mg/dL) 3.1 Magnesium (1.6 - 2.3 mg/dL) 2.2 Total Bilirubin (0.2 - 1.3 mg/dL) 0.4 AST (17 - 59 U/L) 12 L ALT (21 - 72 U/L) 28 Troponin I (<0.11 ng/ml) < 0.01 Albumin (3.5 - 5.0 g/dL) 2.8 L Hematology CBC w Diff NO MAN DIFF REQ WBC (4.8 - 10.8 /CUMM) 7.8 RBC (4.70 - 6.10 /CUMM) 4.97 Hgb (14.0 - 18.0 G/DL) 14.7 Hct (42 - 52 %) 45.5 MCV (80.0 - 94.0 FL) 91.6 MCH (27.0 - 31.0 PG) 29.6 MCHC (33.0 - 37.0 G/DL) 32.4 L RDW (11.5 - 14.5 %) 13.2 Plt Count (130 - 400 /CUMM) 256 MPV (7.4 - 10.4 FL) 9.9 Gran % (42.2 - 75.2 %) 60.6 Lymphocytes % (20.5 - 51.1 %) 24.8 Monocytes % (1.7 - 9.3 %) 10.7 H Eosinophils % (0 - 5 %) 3.4 Basophils % (0.0 - 2.0 %) 0.5 Absolute Granulocytes (1.4 - 6.5 /CUMM) 4.7 Absolute Lymphocytes (1.2 - 3.4 /CUMM) 1.9 Absolute Monocytes (0.10 - 0.60 /CUMM) 0.8 H Absolute Eosinophils (0.0 - 0.7 /CUMM) 0.3 Absolute Basophils (0.0 - 0.2 /CUMM) 0
--- NOTE | 2018-02-24 07:42 | PN- Resident CRCU ---
Subjective HPI/CRCU Issues: -New diagnosis of diabetes mellitus with hyperosmolar hyperglycemic state with anion gap metabolic acidosis. -Pseudohypernatremia due to above. -Volume depletion due to above. -Hypercalcium with elevated ALK.Phosph. 24 Hour Events: Patient reports feeling better. No overnight events. Patient remains on 4 L of oxygen, we'll try to wean off. Blood sugar levels range from 208-315. Vital signs remained stable. Objective Vital Signs & I&O Last 8 Hrs of Vitals and I&O: Intake & Output 02/24 1600 Intake Total 560 Output Total Balance 560 Intake, Oral 560 Patient 167 lb Weight Exam General Appearance: well developed/nourished, no apparent distress, alert, awake , comfortable Head: atraumatic, normal appearance Respiratory: normal breath sounds, chest non-tender, no respiratory distress Cardiovascular: regular rate/rhythm Gastrointestinal: normal bowel sounds, soft, non-tender Extremities: normal inspection, normal range of motion, no edema Cranial Nerves: normal hearing, normal speech, PERRL Current Medications: Current Medications Sig/Mary Start time Last Medication Dose Route Stop Time Status Admin Acetaminophen 650 MG .STK-MED ONE 02/23 2303 DC PO 02/23 2304 Acetaminophen 650 MG Q6P PRN 02/22 1315 AC 02/24 PO 1315 Albuterol Sulfate 2 PUF Q4-6 PRN PRN 02/22 1500 AC INH Amlodipine Besylate 2.5 MG DAILY 02/23 1000 AC 02/24 PO 1006 Aspirin Buffered 81 MG DAILY 02/23 1236 AC 02/24 PO 1006 Atorvastatin Calcium 40 MG 1700 02/23 1700 AC 02/23 PO 1639 Clopidogrel Bisulfate 75 MG DAILY 02/23 1000 AC 02/24 PO 1006 Heparin Sodium 5,000 UNIT Q8 02/22 1400 AC 02/24 (Porcine) SC 1427 Hydrocodone Bitart/ 1 TAB Q6P PRN 02/22 1315 AC Acetaminophen PO Insulin Aspart 0 TIDAC/HS 02/22 1700 AC 02/24 SC 1200 Insulin Detemir 15 UNITS BID 02/22 1630 AC 02/24 SC 1007 Losartan Potassium 100 MG DAILY 02/23 1000 AC 02/24 PO 1006 Metformin HCl 500 MG 0800,1700 02/24 0815 AC 02/24 PO 1006 Metoprolol Tartrate 12.5 MG BID 04/09 1237 AC 02/24 PO 1006 Morphine Sulfate 2 MG Q4P PRN 02/23 0800 AC IV Nicotine 21 MG DAILY 02/22 1600 AC 02/24 TOP 1007 Omeprazole 40 MG DAILY AC 02/24 0700 AC 02/24 PO 0603 Tiotropium [place] 1 PUF DAILY 02/23 1000 AC 02/24 INH 1012 Impression/Plan Impression/Problem List Impression: shital is a 78-year-old male with past medical history of COPD not on home oxygen, hypertension, GERD, Campos's Esophagus, recent H. pylori positive gastritis, coronary artery disease status post stent in 2017 on dual antiplatelet therapy presenting this admission with chief complaints of weakness , unintentional weight loss, polyuria and polydipsia. On admission patient was found to have blood glucose of 731, with positive acetone, metabolic acidosis with high anion gap. Patient was started on an IV insulin drip and IV fluids. Patient is admitted to ICU for management of following: Respiratory: COPD - Patient weaned off the oxygen, saturating 92% on room air. - Continue spiriva and albuterol inhalers - TRC/DuoNeb - smoking cessation education - nicotine patch Infectious: None Cardiac: 1. Coronary artery disease status post stent in 2017 on dual antiplatelet therapy. Echo done on 02/23/18 showing stage I diastolic dysfunction, LVEF of greater than 65% with no regional wall motion abnormalities. - Continue aspirin and Plavix - Continue metoprolol 12.5 BID and atorvastatin 40mg per cardiology - Telemetry monitoring discontinued per cardiology 2. HTN: - continue amlodipine 2.5mg - continue losartan 100mg daily Heme: None Metabolic: Diabetic ketoacidosis in the setting of newly diagnosed diabetes Hemoglobin A1c was 12.9. Per patient he has never been diagnosed with diabetes in the past. Patient is currently asymptomatic with decreased urine output and decreased thirst. Fingersticks are improving in the 200s. Patient is currently off IV insulin drip and on Levemir 15 units twice a day with NovoLog sliding scale. - Continue Accu-Cheks 3 times a day before meals/daily at bedtime, BS ranges between 208-315 - Continue on NovoLog sliding scale per endocrinology recommendations - Continue Levemir 15 units twice a day - Start metformin 500 mg twice a day per endocrinology. - Diet consistent carbohydrate 1 - Dietary consult - Continue to monitor electrolytes and replete potassium as needed Alimentary: Consistent carbohydrate 1 diet GERD: - Continue PO Protonix Nephrology: None Neurology: None DVT PPX: Heparin SQ Diet: consistent carb 1 Code: full code Dispo: transfer to [facility] Problem List: 1. DKA (diabetic ketoacidoses) Pain Ratin Pain Location: NA Tomorrow's Labs & Rationales: CBC ICU Bundle Plan DVT/Prophylaxis: mechanical, pharmacological
[2018-02-24 08:00] VITALS: BP 110/68
--- NOTE | 2018-02-24 09:50 | PN- Pulmonary ---
Subjective HPI/Critical Care Issues: The patient states he feels well this morning. He is eating okay. His oxygen saturation is still somewhat low on room air and he is on oxygen. He has underlying COPD and is a heavy smoker. Fingerstick blood sugars were high yesterday. Objective Current Medications: Current Medications Sig/Mary Start time Last Medication Dose Route Stop Time Status Admin Acetaminophen 650 MG .STK-MED ONE 02/23 2303 DC PO 02/23 2304 Acetaminophen 650 MG Q6P PRN 02/22 1315 AC 02/23 PO 2306 Albuterol Sulfate 2 PUF Q4-6 PRN PRN 02/22 1500 AC INH Amlodipine Besylate 2.5 MG DAILY 02/23 1000 AC 02/23 PO 0949 Aspirin Buffered 81 MG DAILY 02/23 1236 AC 02/23 PO 1512 Atorvastatin Calcium 40 MG 1700 02/23 1700 AC 02/23 PO 1639 Clopidogrel Bisulfate 75 MG DAILY 02/23 1000 AC 02/23 PO 0949 Heparin Sodium 5,000 UNIT Q8 02/22 1400 AC 02/24 (Porcine) SC 0603 Hydrocodone Bitart/ 1 TAB Q6P PRN 02/22 1315 AC Acetaminophen PO Insulin Aspart 0 TIDAC/HS 02/22 1700 AC 02/24 SC 0810 Insulin Detemir 15 UNITS BID 02/22 1630 AC 02/23 SC 2216 Losartan Potassium 100 MG DAILY 02/23 1000 AC 02/23 PO 0949 Metformin HCl 500 MG 0800,1700 02/24 0815 AC PO Metoprolol Tartrate 12.5 MG BID 02/23 1237 AC 02/23 PO 2215 Morphine Sulfate 2 MG Q4P PRN 02/23 0800 AC IV Nicotine 21 MG DAILY 02/22 1600 AC 02/23 TOP 0949 Omeprazole 40 MG DAILY AC 02/24 0700 AC 02/24 PO 0603 Pantoprazole Sodium 40 MG DAILY 02/22 1311 DC 02/23 IV 0949 Tiotropium [place] 1 PUF DAILY 02/23 1000 AC 02/23 INH 0950 Vital Signs & I&O Last 24 Hrs of Vitals and I&O: Vital Signs Date Time Temp Pulse Resp B/P B/P Pulse O2 O2 Flow FiO2 Mean Ox Delivery Rate 02/24 08 97.8 76 18 110/68 95 Nasal 4.0L Cannula 02/24 0000 94 Nasal 4.0L Cannula 02/23 2312 98.3 74 18 104/60 94 Nasal 4.0L Cannula 02/23 2215 76 18 110/70 02/23 1600 98 Nasal 4.0L Cannula 02/23 1600 97.7 88 18 108/70 97 Nasal 4.0L Cannula 02/23 1515 88 100/64 02/23 1200 97.7 82 20 120/80 96 Nasal 4.0L Cannula 02/23 0949 77 103/67 02/23 0949 77 Intake & Output 02/24 1600 02/24 0800 02/24 0000 Intake Total 480 420 Output Total 600 600 Balance -120 -180 Intake, IV 0 Intake, Oral 480 420 Output, Urine 600 600 Patient 167 lb Weight Impression/Plan Impression/Plan Impression/Plan: General Appearance Alert, Oriented X3, Cooperative, No Acute Distress Skin Temp/Moisture Exam: Warm/Dry HEENT Atraumatic, PERRLA, EOMI Neck Supple, No JVD Cardiovascular Regular Rate, Normal S1, Normal S2 Lungs Normal Air Movement, No added sound Abdomen Normal Bowel Sounds, Soft, No Tenderness, obese Extremities No Edema, Normal Pulses PT with mod copd, ihd, recent pci, on dapt, ongoing smoking, Barretts esophagus, recent H.pylori postive gastritis, peripheral vascular disease, probable obesity hypoventilation syndrome, chronic hypercalcemia, chronic mild erythrocytosis probably related to COPD and obesity hypoventilation syndrome now has * Resolved Hyperosmolar diabetes with mild ketosis with significant anion gap acidosis. This was preceded by significant osmotic diuresis and dehydration * GRACIA resolved * Ischemic heart disease with previous stent on dual antiplatelet therapy * Moderate COPD, no active exacerbation * Mild chronic erythrocytosis most likely related to COPD and obesity hypoventilation probable sleep apnea needs to be evaluated upon dc * VIt D def * Recent H. pylori gastritis with Campos's esophagus, colon polyps stable./ needs to complete his rx for Hpylori soon RECOMMENDATION Cont insulin and metformin as ordered by pete Singh to the floor Continue his dual antiplatelet therapy , proton pump inhibitor, resume asa/ok with low dose betablocker and statin Subcutaneous heparin smoking cessation counselling done Out pt sleep study COnt his out pt inhalers - spiriva on epuff daily and prn albuterol
[2018-02-24 10:15] VITALS: BP 112/60
[2018-02-24 16:00] VITALS: BP 118/70
[2018-02-24 23:59] VITALS: BP 124/60
[2018-02-25 05:32] LABS: ABSOLUTE BASOPHIL COUNT 0 /CUMM (0.0-0.2); ABSOLUTE EOSINOPHIL COUNT 0.2 /CUMM (0.0-0.7); ABSOLUTE GRANULOCYTE CT 5.3 /CUMM (1.4-6.5); ABSOLUTE LYMPH COUNT 1.4 /CUMM (1.2-3.4); BASOPHIL % 0.5 % (0.0-2.0); GRANULOCYTE % 67.1 % (42.2-75.2); HEMATOCRIT 43.7 % (42-52); MEAN CORPUSCULAR HGB 30.4 PG (27.0-31.0); MEAN CORPUSCULAR HGB CONC 33.7 G/DL (33.0-37.0); MEAN CORPUSCULAR VOLUME 90.2 FL (80.0-94.0); MEAN PLATELET VOLUME 10.4 FL (7.4-10.4); PLATELET COUNT 241 /CUMM (130-400); RBC DISTRIBUTION WIDTH 13.2 % (11.5-14.5); RED BLOOD CELL CT 4.85 /CUMM (4.70-6.10); WHITE BLOOD CELL COUNT 7.9 /CUMM (4.8-10.8)
--- NOTE | 2018-02-25 07:33 | PN- Diabetes ---
Assessment/Plan Diabetes Assessment: The patient feels improved. His blood sugars are still running high. We began metformin 500 mg twice a day yesterday. He is on insulin including Levemir and sliding scale NovoLog. Plan: Suggest increase metformin to 850 mg twice a day. Add pioglitazone 30 mg once a day. Pioglitazone will take a few weeks before it has an impact on his blood sugars. Continue the present insulin regimen. If the patient goes home today we should prescribe the above medications plus insulin pens. We should give him NovoLog flex pen 1 box of 5 pens. The instructions for NovoLog is take up to 50 units daily in divided doses before meals. He should be sent home on the present sliding scale before meals. However the bedtime sliding scale can be eliminated. We should also give him a Levemir pen 1 box of 5 with the instructions take 15 units twice a day. We need to prescribe BD Celi pen needles #200 use 5 daily. He also will need a home blood glucose meter and test strips to test his sugar 4 times a day. He should follow-up in the office. Subjective Subjective: Has some neck pain Review of Systems Constitutional: Denies: chills, fever. Cardiovascular: Denies: chest pain. Respiratory: Denies: cough, short of breath. Gastrointestinal: Denies: abdominal pain, nausea. Skin: Reports: no symptoms. Objective Last 24 Hrs of Vital Signs/I&O Vital Signs Date Time Temp Pulse Resp B/P B/P Pulse O2 O2 Flow FiO2 Mean Ox Delivery Rate 02/249 97.8 60 18 124/60 97 Room Air 02/24 1600 98.0 76 18 118/70 95 Room Air 02/24 1150 93 Room Air 02/24 1016 92 Nasal 1.0L Cannula 02/24 1015 80 112/60 93 Nasal 2.0L Cannula 02/24 1006 80 112/60 02/24 0800 97.8 76 18 110/68 95 Nasal 4.0L Cannula Intake & Output 02/25 0800 02/25 0000 02/24 1600 Intake Total 240 500 560 Output Total Balance 240 500 560 Intake, Oral 240 500 560 Patient 167 lb Weight Vital Signs Date Time Temp Pulse Resp B/P B/P Pulse O2 O2 Flow FiO2 Mean Ox Delivery Rate 02/24 2359 97.8 60 18 124/60 97 Room Air 02/24 1600 98.0 76 18 118/70 95 Room Air 02/24 1150 93 Room Air 02/24 1016 92 Nasal 1.0L Cannula 02/24 1015 80 112/60 93 Nasal 2.0L Cannula 02/24 1006 80 112/60 02/24 0800 97.8 76 18 110/68 95 Nasal 4.0L Cannula Intake & Output 02/25 0800 02/25 0000 02/24 1600 Intake Total 240 500 560 Output Total Balance 240 500 560 Intake, Oral 240 500 560 Patient 167 lb Weight Physical Exam General Appearance: alert, awake, comfortable Head: normal appearance Neck: normal inspection Respiratory: normal breath sounds Cardiovascular: regular rate/rhythm Abdomen: normal bowel sounds Extremities: normal inspection Current Medications: Current Medications Sig/Mary Start time Last Medication Dose Route Stop Time Status Admin Acetaminophen 650 MG .STK-MED ONE 02/24 1314 DC PO 02/24 1315 Acetaminophen 650 MG Q6P PRN 02/22 1315 AC 02/24 PO 1315 Albuterol Sulfate 2 PUF Q4-6 PRN PRN 02/22 1500 AC INH Amlodipine Besylate 2.5 MG DAILY 02/23 1000 AC 02/24 PO 1006 Aspirin Buffered 81 MG DAILY 02/23 1236 AC 02/24 PO 1006 Atorvastatin Calcium 40 MG 1700 02/23 1700 AC 02/24 PO 1640 Clopidogrel Bisulfate 75 MG DAILY 02/23 1000 AC 02/24 PO 1006 Heparin Sodium 5,000 UNIT Q8 02/22 1400 AC 02/25 (Porcine) SC 0551 Hydrocodone Bitart/ 1 TAB Q6P PRN 02/22 1315 AC Acetaminophen PO Ibuprofen 400 MG ONCE ONE 02/25 0545 DC 02/25 PO 02/25 0546 0551 Insulin Aspart 0 TIDAC/HS 02/22 1700 AC 02/24 SC 2245 Insulin Detemir 15 UNITS BID 02/22 1630 AC 02/24 SC 2245 Losartan Potassium 100 MG DAILY 02/23 1000 AC 02/24 PO 1006 Metformin HCl 500 MG 0800,1700 02/24 0815 AC 02/24 PO 1640 Metoprolol Tartrate 12.5 MG BID 02/23 1237 AC 02/24 PO 2246 Morphine Sulfate 2 MG Q4P PRN 02/23 0800 AC IV Nicotine 21 MG DAILY 02/22 1600 AC 02/24 TOP 1007 Omeprazole 40 MG DAILY AC 02/24 0700 AC 02/25 PO 0551 Tiotropium [place] 1 PUF DAILY 02/23 1000 AC 02/24 INH 1012 Findings Pertinent Lab/[facility] Results: Laboratory Tests 02/25 0410 Chemistry Sodium (137 - 145 mmol/L) 136 L Potassium (3.5 - 5.1 mmol/L) 4.1 Chloride (98 - 107 mmol/L) 103 Carbon Dioxide (22 - 30 mmol/L) 23 Anion Gap (5 - 16) 10 BUN (9 - 20 mg/dL) 15 Creatinine (0.7 - 1.2 mg/dL) 0.7 Estimated GFR (>60 ml/min) > 60 Glucose (65 - 99 mg/dL) 250 H Calcium (8.4 - 10.2 mg/dL) 9.2 Phosphorus (2.5 - 4.5 mg/dL) 2.6 Magnesium (1.6 - 2.3 mg/dL) 2.0 Total Bilirubin (0.2 - 1.3 mg/dL) 0.5 AST (17 - 59 U/L) 13 L ALT (21 - 72 U/L) 31 Albumin (3.5 - 5.0 g/dL) 3.0 L Hematology CBC w Diff NO MAN DIFF REQ WBC (4.8 - 10.8 /CUMM) 7.9 RBC (4.70 - 6.10 /CUMM) 4.85 Hgb (14.0 - 18.0 G/DL) 14.7 Hct (42 - 52 %) 43.7 MCV (80.0 - 94.0 FL) 90.2 MCH (27.0 - 31.0 PG) 30.4 MCHC (33.0 - 37.0 G/DL) 33.7 RDW (11.5 - 14.5 %) 13.2 Plt Count (130 - 400 /CUMM) 241 MPV (7.4 - 10.4 FL) 10.4 Gran % (42.2 - 75.2 %) 67.1 Lymphocytes % (20.5 - 51.1 %) 17.5 L Monocytes % (1.7 - 9.3 %) 12.9 H Eosinophils % (0 - 5 %) 2.0 Basophils % (0.0 - 2.0 %) 0.5 Absolute Granulocytes (1.4 - 6.5 /CUMM) 5.3 Absolute Lymphocytes (1.2 - 3.4 /CUMM) 1.4 Absolute Monocytes (0.10 - 0.60 /CUMM) 1.0 H Absolute Eosinophils (0.0 - 0.7 /CUMM) 0.2 Absolute Basophils (0.0 - 0.2 /CUMM) 0
--- NOTE | 2018-02-25 07:45 | PN- Resident CRCU ---
Subjective HPI/CRCU Issues: - New diagnosis of diabetes mellitus - Hyperosmolar hyperglycemic state with anion gap metabolic acidosis - resolved - Hypercalcemia with elevated ALK.Phosph - resolved 24 Hour Events: Patient complaining of left-sided neck pain, he is able to move his neck but movement does make the pain worse. States the pain started last night before he went to sleep. He received ibuprofen this morning but has not helped much with the pain. Objective Vital Signs & I&O Last 8 Hrs of Vitals and I&O: Intake & Output 02/26 0800 Intake Total 490 Output Total Balance 490 Intake, IV 10 Intake, Oral 480 Exam General Appearance: well developed/nourished, no apparent distress, alert, awake Head: atraumatic, normal appearance Neck: supple, full range of motion Respiratory: normal breath sounds, lungs clear Cardiovascular: regular rate/rhythm Gastrointestinal: normal bowel sounds, soft, non-tender Extremities: trace pedal edema Cranial Nerves: normal hearing, normal speech, PERRL Current Medications: Current Medications Sig/Mary Start time Last Medication Dose Route Stop Time Status Admin Acetaminophen 650 MG Q6P PRN 02/22 1315 AC 02/24 PO 1315 Albuterol Sulfate 2 PUF Q4-6 PRN PRN 02/22 1500 AC INH Amlodipine Besylate 2.5 MG DAILY 02/23 1000 AC 02/25 PO 1020 Aspirin Buffered 81 MG DAILY 02/23 1236 AC 02/25 PO 1021 Atorvastatin Calcium 40 MG 1700 02/23 1700 AC 02/24 PO 1640 Clopidogrel Bisulfate 75 MG DAILY 02/23 1000 AC 02/25 PO 1021 Heparin Sodium 5,000 UNIT Q8 02/22 1400 AC 02/25 (Porcine) SC 0551 Hydrocodone Bitart/ 1 TAB Q6P PRN 02/22 1315 AC Acetaminophen PO Ibuprofen 400 MG ONCE ONE 02/25 0545 DC 02/25 PO 02/25 0546 0551 Insulin Aspart 0 TIDAC/HS 02/22 1700 AC 02/25 SC 1245 Insulin Detemir 15 UNITS BID 02/22 1630 AC 02/25 SC 1043 Losartan Potassium 100 MG DAILY 02/23 1000 AC 02/25 PO 1021 Metformin HCl 850 MG 0800,1700 02/25 1700 AC PO Metformin HCl 500 MG 0800,1700 02/24 0815 DC 02/25 PO 0901 Metoprolol Tartrate 12.5 MG BID 02/23 1237 AC 02/25 PO 1021 Morphine Sulfate 2 MG Q4P PRN 02/23 0800 AC IV Nicotine 21 MG DAILY 02/22 1600 AC 02/24 TOP 1007 Omeprazole 40 MG DAILY AC 02/24 0700 AC 02/25 PO 0551 Pioglitazone HCl 30 MG DAILY 02/25 1000 AC 02/25 PO 1244 Tiotropium [place] 1 PUF DAILY 02/23 1000 AC 02/25 INH 1022 Impression/Plan Impression/Problem List Impression: Patient is a 78-year-old male with past medical history of COPD not on home oxygen, hypertension, GERD, Campos's Esophagus, recent H. pylori positive gastritis, coronary artery disease status post stent in 2017 on dual antiplatelet therapy presenting this admission with chief complaints of weakness , unintentional weight loss, polyuria and polydipsia. On admission patient was found to have blood glucose of 731, with positive acetone, metabolic acidosis with high anion gap. Patient was started on an IV insulin drip and IV fluids. Patient is admitted to ICU for management of following: Respiratory: COPD - Continue spiriva and albuterol inhalers - TRC/DuoNeb - smoking cessation education - nicotine patch Infectious: None Cardiac: 1. Coronary artery disease status post stent in 2017 on dual antiplatelet therapy. Echo done on 02/23/18 showing stage I diastolic dysfunction, LVEF of greater than 65% with no regional wall motion abnormalities. - Continue aspirin and Plavix - Continue metoprolol 12.5 BID and atorvastatin 40mg per cardiology - Telemetry monitoring discontinued per cardiology 2. HTN: - continue amlodipine 2.5mg - continue losartan 100mg daily Heme: None Metabolic: Diabetic ketoacidosis in the setting of newly diagnosed diabetes Hemoglobin A1c was 12.9. Per patient he has never been diagnosed with diabetes in the past. Patient is currently asymptomatic with decreased urine output and decreased thirst. Fingersticks are improving in the 200s. Patient is currently off IV insulin drip and on Levemir 15 units twice a day with NovoLog sliding scale. - Continue Accu-Cheks 3 times a day before meals/daily at bedtime, BS ranges between 217-292 - Continue on NovoLog sliding scale per endocrinology recommendations - Continue Levemir 15 units twice a day - Increase metformin from 500 mg to 850mg twice a day and will add pioglitazone 30mg daily for better control of her blood sugar levels. - Diet consistent carbohydrate 1 - Dietary consult - Continue to monitor electrolytes and replete potassium as needed Alimentary: Consistent carbohydrate 1 diet GERD: - Continue PO Protonix Nephrology: None Neurology: None DVT PPX: Heparin SQ Diet: consistent carb 1 Code: full code Dispo: transfer to [facility] Problem List: 1. New onset type 2 diabetes mellitus Pain Ratin Tomorrow's Labs & Rationales: cbc bep Plan DVT/Prophylaxis: mechanical, pharmacological
[2018-02-25 09:16] VITALS: BP 118/64
[2018-02-25] MEDS ORDERED: LEVEMIR FL100 UNIT/1 SC (11:02)
[2018-02-25] MEDS ORDERED: ATORVASTATIN CA40 M1 PO (11:02)
[2018-02-25] MEDS ORDERED: METFORMIN HCL850 M1 PO (11:02)
[2018-02-25] MEDS ORDERED: METOPROLOL TART25 M1 PO (11:02)
[2018-02-25] MEDS ORDERED: NOVOLOG FL100 UNIT/1 SC (11:02)
[2018-02-25] MEDS ORDERED: LEVEMIR100 UNIT/1 SC (11:02)
[2018-02-25] MEDS ORDERED: ACTOS30 M1 PO (11:04)
--- NOTE | 2018-02-25 11:10 | Patient Discharge Instructions ---
Discharge Instructions General Discharge Information You were seen/treated for: New diagnosis of diabetes mellitus with hyperosmolar hyperglycemic state with anion gap metabolic acidosis. 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 Diet Continue normal diet: Yes Recommended Diet: Diabetic Activity Full Activity/No Limits: Yes Activity Self Limited: Yes Acute Coronary Syndrome Inclusion Criteria At DC or during hospital stay patient has or had the following: ACS DIAGNOSIS No Discharge Core Measures Meds if any: Prescribed or Continued at Discharge Meds if any: NOT Prescribed or Continued at Discharge Congestive Heart Failure Inclusion Criteria At DC or during hospital stay patient has or had the following: CHF DIAGNOSIS No Discharge Core Measures Meds if any: Prescribed or Continued at Discharge Meds if any: NOT Prescribed or Continued at Discharge Cerebrovascular accident Inclusion Criteria At DC or during hospital stay patient has or had the following: CVA/TIA Diagnosis No Discharge Core Measures Meds if any: Prescribed or Continued at Discharge Meds if any: NOT Prescribed or Continued at Discharge Venous thromboembolism Inclusion Criteria VTE Diagnosis No VTE Type NONE VTE Confirmed by (Test) NONE Discharge Core Measures - Per Current guidelines, there needs to be overlap - treatment for the first 5 days of Warfarin therapy. - If discharged on Warfarin prior to 5 days of - overlap therapy, the patient will need to be - assessed for post discharge needs including - *Post discharge parental anticoagulation - *Warfarin and/or parental anticoagulation education - *Follow up date to check INR post discharge At least 5 days overlap therapy as Inpatient No Meds if any: Prescribed or Continued at Discharge Note: Overlap Therapy is Warfarin and Anticoagulant Meds if any: NOT Prescribed or Continued at Discharge
--- NOTE | 2018-02-25 13:40 | Discharge Summary ---
Hospital Course Allergies: Coded Allergies: No Known Allergies (02/22/17) Discharge Instructions Medications at Discharge Discharge Medications: Continue taking these medications: Tiotropium [place] (Spiriva) 18 MCG CAP.W.DEV 1 Capsule Inhale through mouth DAILY Comments: Last Taken:02/24/17 Time:0926 AM Clopidogrel Bisulfate (Plavix) 75 MG TABLET 75 Milligram ORAL DAILY Qty = 60 Instructions: To be taken for 1 year Comments: Last Taken:02/24/17 Time: 1044 AM Aspirin (Ecotrin*) 81 MG TABLET. 81 Milligram ORAL DAILY Qty = 30 Comments: Last Taken:02/24/17 Time: 0924 AM Losartan Potassium (Losartan Potassium) 100 MG TABLET 1 Tablet ORAL DAILY Albuterol Sulfate (Proair Hfa) 90 MCG HFA.AER.AD 2 Puff Inhale through mouth EVERY 4-6 HOURS NEEDED as needed for COPD Amlodipine Besylate (Amlodipine Besylate) 2.5 MG TABLET 1 Tablet ORAL DAILY Qty = 90 Start taking the following new medications: Atorvastatin Calcium (Atorvastatin Calcium) 40 MG TABLET 1 Tablet ORAL DAILY Qty = 30 No Refills Metoprolol Tartrate (Metoprolol Tartrate) 25 MG TABLET 0.5 Tablet ORAL TWICE DAILY Qty = 30 No Refills Metformin HCl (Metformin HCl) 850 MG TABLET 1 Tablet ORAL TWICE DAILY Qty = 60 No Refills Pioglitazone HCl (Actos) 30 MG TABLET 1 Tablet ORAL DAILY Qty = 30 No Refills Insulin Detemir (Levemir Flextouch) 100 UNIT/ML (3 ML) INSULN.PEN 15 Units Inject into fatty tissue TWICE DAILY Qty = 5 No Refills Insulin Aspart, Recombinant (Novolog Flexpen) 100 UNIT/ML INSULN.PEN 0 Inject into fatty tissue 3 TIMES DAILY BEFORE MEALS Qty = 5 No Refills Instructions: BLOOD SUGAR INSULIN 80-150 4 UNITS 151-200 6 201-250 7 UNITS 251-300 8 301-350 9 UNITS 351-400 10 >400 11 UNITS
[2018-02-25 14:03] VITALS: BP 108/62
[2018-02-25 22:36] VITALS: BP 114/70
[2018-02-26 06:27] VITALS: BP 100/60
--- NOTE | 2018-02-26 06:42 | PN- Housestaff ---
Say Augustine MD,Ami 02/26/18 0642: Subjective Follow-up For: Hyperosmular state DM Subjective: Patient visited today, was sitting in bed comfortably in no acute distress, was alert and oriented. at bedside. requesting to be discharged today. No fever or chills, no shortness of breathing, no chest pain, no other events. patient s Review of Systems Constitutional: Reports: see HPI. Objective Last 24 Hrs of Vital Signs/I&O Vital Signs Date Time Temp Pulse Resp B/P B/P Pulse O2 O2 Flow FiO2 Mean Ox Delivery Rate 02/26 0859 88 110/70 02/26 0858 88 110/70 02/26 0858 88 110/70 02/26 0800 93 Room Air 02/26 0627 98.0 76 18 100/60 93 Room Air 02/25 2236 97.9 82 18 114/70 96 Room Air 02/25 2036 97.6 84 20 108/62 02/25 1403 97.6 84 20 108/62 94 Room Air Intake & Output 02/26 1600 02/26 0800 02/26 0000 Intake Total 490 610 Output Total Balance 490 610 Intake, IV 10 10 Intake, Oral 480 600 Physical Exam General Appearance: Alert, Oriented X3, Cooperative, No Acute Distress Skin: No Significant Lesion Skin Temp/Moisture Exam: Warm/Dry Sepsis Skin Exam (color): Normal for Ethnicity HEENT: Atraumatic, EOMI Neck: No JVD Cardiovascular: Normal S1, Normal S2 Lungs: Normal Air Movement Abdomen: Soft, No Tenderness Current Medications: Current Medications Sig/Mary Start time Last Medication Dose Route Stop Time Status Admin Acetaminophen 650 MG Q6P PRN 02/22 1315 AC 02/24 PO 1315 Albuterol Sulfate 2 PUF Q4-6 PRN PRN 02/22 1500 AC INH Amlodipine Besylate 2.5 MG DAILY 02/23 1000 AC 02/26 PO 0859 Aspirin Buffered 81 MG DAILY 02/23 1236 AC 02/26 PO 0858 Atorvastatin Calcium 40 MG 1700 02/23 1700 AC 02/25 PO 1656 Clopidogrel Bisulfate 75 MG DAILY 02/23 1000 AC 02/26 PO 0859 Heparin Sodium 5,000 UNIT Q8 02/22 1400 AC 02/26 (Porcine) SC 0532 Hydrocodone Bitart/ 1 TAB Q6P PRN 04/08 1315 AC Acetaminophen PO Insulin Aspart 0 TIDAC/HS 02/22 1700 AC 02/26 SC 1157 Insulin Detemir 18 UNITS BID 02/26 1000 DC SC Insulin Detemir 18 UNITS BID 02/26 0900 AC 02/26 SC 0954 Insulin Detemir 15 UNITS BID 02/22 1630 DC 02/25 SC 2035 Losartan Potassium 100 MG DAILY 02/23 1000 AC 02/26 PO 0858 Metformin HCl 850 MG 0800,1700 02/25 1700 AC 02/26 PO 0809 Metoprolol Tartrate 12.5 MG BID 02/23 1237 AC 02/26 PO 0858 Morphine Sulfate 2 MG Q4P PRN 02/23 0800 AC IV Nicotine 21 MG DAILY 02/22 1600 AC 02/24 TOP 1007 Omeprazole 40 MG DAILY AC 02/24 0700 AC 02/26 PO 0531 Pioglitazone HCl 30 MG DAILY 02/25 1000 AC 02/26 PO 0859 Tiotropium [place] 1 PUF DAILY 02/23 1000 AC 02/26 INH 0859 Assessment/Plan Assessment: Patient is a 78-year-old male with past medical history of COPD not on home oxygen, hypertension, GERD, Campos's Esophagus, recent H. pylori positive gastritis, coronary artery disease status post stent in 2017 on dual antiplatelet therapy presenting this admission with chief complaints of weakness , unintentional weight loss, polyuria and polydipsia. On admission patient was found to have blood glucose of 731, with positive acetone, metabolic acidosis with high anion gap. Patient was started on an IV insulin drip and IV fluids. Patient was initially admitted to ICU, upon stablization was transfered to floor. Following managements were done: Hyperosmolar hyperglycemic state: Patient also had Diabetic ketoacidosis in the setting of newly diagnosed diabetes. Hemoglobin A1c was 12.9. Per patient he has never been diagnosed with diabetes in the past. Patient received IV insuline drip, metabolic support was performed , after stablization and improvement of blood sugar SC insulin were adminstered and oral medication started. Medication adjustment was performed. Patient was discharged with instructions to follow in outpatient. Chronic medical conditions: COPD, CAD, HTN, GERD we continued home medications. DVT PPX: Heparin SQ Diet: consistent carb 1 Code: full code Patient was discharged with recommendations to follow with Endo and PCP. Problem List: 1. DKA (diabetic ketoacidoses) 2. New onset type 2 diabetes mellitus Pain Ratin Pain Location: None Pain Goal: Pain 4 or less Pain Plan: Continue current plan Tomorrow's Labs & Rationales: None Sebastian Barboza MDlokichetan 02/26/18 1330: Attending MD Review Statement Attending Statement Attending MD Statement: examined this patient, discuss w/resident/PA/SALESPERSON NEW CARS, agreed w/resident/PA/SALESPERSON NEW CARS, discussed with family, reviewed EMR data (avail), discussed with nursing, discussed with case mgmt, amended to note Attending Assessment/Plan: Patient seen and examined. 78-year-old gentleman with history of non-oxygen dependent COPD who was admitted to the intensive care unit with a hyperosmolar state secondary to newly diagnosed diabetes mellitus. He required insulin infusion while in the intensive care unit. Glucose control improved and he was transferred out of the intensive care unit yesterday. I admitted the patient for the first time today. He is resting comfortably not in any acute distress. His is present at the bedside. He has had some teaching from nursing staff regarding monitoring of his blood glucose on admission of insulin. This will be reinforced today prior to discharge. He appears motivated to participate in his treatment. His is also present at bedside and is motivated as well. Recommendation by the endocrinology service appreciated. Patient will follow up with them as an outpatient. He has a new primary care provider in the [facility] he will be following with upon discharge. Questions were answered and patient is medically stable for discharge today in the company of his .
[2018-02-26] MEDS ORDERED: LEVEMIR FL100 UNIT/1 SC ×2 (07:45→12:35)
--- NOTE | 2018-02-26 07:54 | PN- Diabetes ---
Assessment/Plan Diabetes Assessment: The patient feels okay. His neck pain is less. His appetite is good. He is currently on Levemir 15 units twice a day and sliding scale NovoLog. He is also on pioglitazone and metformin. Plan: Suggest increase Levemir to 18 units twice a day. Continue present sliding scale NovoLog. The patient may be discharged on pioglitazone 30 mg daily and metformin 850 mg twice a day. In addition he should be on 18 units of Levemir twice a day along with the present sliding scale NovoLog. A prescription for insulin pens both NovoLog and Levemir and a prescription for pen needles should be sent to the pharmacy. The prescriptions are outlined in my note yesterday and the only change would be to increase the Levemir to 18 units twice a day.. He also needs prescriptions for pioglitazone and metformin. Subjective Subjective: Feels okay Review of Systems Constitutional: Denies: chills, fever. Cardiovascular: Denies: chest pain. Respiratory: Denies: cough, short of breath. Gastrointestinal: Denies: abdominal pain, nausea. Skin: Reports: no symptoms. Objective Last 24 Hrs of Vital Signs/I&O Vital Signs Date Time Temp Pulse Resp B/P B/P Pulse O2 O2 Flow FiO2 Mean Ox Delivery Rate 02/26 627 98.0 76 18 100/60 93 Room Air 02/26 2236 97.9 82 18 114/70 96 Room Air 02/26 2036 97.6 84 20 108/62 02/25 1403 97.6 84 20 108/ 94 Room Air 02/25 1020 88 118/64 02/25 0916 98.3 88 20 118/64 92 Room Air Intake & Output 02/26 0800 02/26 0000 02/25 1600 Intake Total 490 610 800 Output Total Balance 490 610 800 Intake, IV 10 10 Intake, Oral 480 600 800 Vital Signs Date Time Temp Pulse Resp B/P B/P Pulse O2 O2 Flow FiO2 Mean Ox Delivery Rate 02/26 627 98.0 76 18 100/60 93 Room Air 02/26 2236 97.9 82 18 114/70 96 Room Air 02/256 97.6 84 20 108/62 11 1403 97.6 84 20 108/62 94 Room Air 02/25 1020 88 118/64 02/25 0916 98.3 88 20 118/64 92 Room Air Intake & Output 02/26 0800 02/26 0000 02/25 1600 Intake Total 490 610 800 Output Total Balance 490 610 800 Intake, IV 10 10 Intake, Oral 480 600 800 Physical Exam General Appearance: alert, awake, comfortable Head: normal appearance Respiratory: decreased breath sounds Cardiovascular: regular rate/rhythm Abdomen: normal bowel sounds Extremities: normal inspection Current Medications: Current Medications Sig/Mary Start time Last Medication Dose Route Stop Time Status Admin Acetaminophen 650 MG Q6P PRN 02/22 1315 AC 02/24 PO 1315 Albuterol Sulfate 2 PUF Q4-6 PRN PRN 02/22 1500 AC INH Amlodipine Besylate 2.5 MG DAILY 02/23 1000 AC 02/25 PO 1020 Aspirin Buffered 81 MG DAILY 02/23 1236 AC 02/25 PO 1021 Atorvastatin Calcium 40 MG 1700 02/23 1700 AC 02/25 PO 1656 Clopidogrel Bisulfate 75 MG DAILY 02/23 1000 AC 02/25 PO 1021 Heparin Sodium 5,000 UNIT Q8 02/22 1400 AC 02/26 (Porcine) SC 0532 Hydrocodone Bitart/ 1 TAB Q6P PRN 02/22 1315 AC Acetaminophen PO Insulin Aspart 0 TIDAC/HS 02/22 1700 AC 02/25 SC 2035 Insulin Detemir 18 UNITS BID 02/26 1000 AC SC Insulin Detemir 15 UNITS BID 02/22 1630 DC 02/25 SC 2035 Losartan Potassium 100 MG DAILY 02/23 1000 AC 02/25 PO 1021 Metformin HCl 850 MG 0800,1700 02/25 1700 AC 02/25 PO 1656 Metformin HCl 500 MG 0800,1700 02/24 0815 DC 02/25 PO 0901 Metoprolol Tartrate 12.5 MG BID 02/23 1237 AC 02/25 PO 2036 Morphine Sulfate 2 MG Q4P PRN 02/23 0800 AC IV Nicotine 21 MG DAILY 02/22 1600 AC 02/24 TOP 1007 Omeprazole 40 MG DAILY AC 02/24 0700 AC 02/26 PO 0531 Pioglitazone HCl 30 MG DAILY 02/25 1000 AC 02/25 PO 1244 Tiotropium [place] 1 PUF DAILY 02/23 1000 AC 02/25 INH 1022
[2018-02-26 08:59] VITALS: BP 110/70
[2018-02-26] MEDS ORDERED: NOVOLOG FL100 UNIT/1 SC (12:35)
[2018-02-26] MEDS ORDERED: METOPROLOL TART25 M1 PO (12:35)
[2018-02-26] MEDS ORDERED: ATORVASTATIN CA40 M1 PO (12:35)
[2018-02-26] MEDS ORDERED: ACTOS30 M1 PO (12:35)
[2018-02-26] MEDS ORDERED: METFORMIN HCL850 M1 PO (12:35)
--- NOTE | 2018-02-26 13:11 | Discharge Summary ---
Hospital Course Allergies: Coded Allergies: No Known Allergies (02/22/17) Discharge Instructions Medications at Discharge Discharge Medications: Continue taking these medications: Tiotropium [place] (Spiriva) 18 MCG CAP.W.DEV 1 Capsule Inhale through mouth DAILY Comments: Last Taken: 02/26/18 Time: 9:00 AM Clopidogrel Bisulfate (Plavix) 75 MG TABLET 75 Milligram ORAL DAILY Qty = 60 Instructions: To be taken for 1 year Comments: Last Taken: 02/26/18 Time: 9:00 AM Aspirin (Ecotrin*) 81 MG TABLET.DR 81 Milligram ORAL DAILY Qty = 30 Comments: Last Taken: 02/26/18 Time: 9:00 AM Losartan Potassium (Losartan Potassium) 100 MG TABLET 1 Tablet ORAL DAILY Comments: Last Taken: 02/26/18 Time: 9:00 AM Albuterol Sulfate (Proair Hfa) 90 MCG HFA.AER.AD 2 Puff Inhale through mouth EVERY 4-6 HOURS NEEDED as needed for COPD Comments: Last Taken: NOT GIVEN IN HOSPITAL Time: Amlodipine Besylate (Amlodipine Besylate) 2.5 MG TABLET 1 Tablet ORAL DAILY Qty = 90 Comments: Last Taken: 02/26/18 Time: 9:00 AM Start taking the following new medications: Atorvastatin Calcium (Atorvastatin Calcium) 40 MG TABLET 1 Tablet ORAL DAILY Qty = 30 No Refills Instructions: . Comments: Last Taken: 02/25/18 Time: 5:00 PM Metoprolol Tartrate (Metoprolol Tartrate) 25 MG TABLET 0.5 Tablet ORAL TWICE DAILY Qty = 30 No Refills Instructions: . Comments: Last Taken: 02/26/18 Time: 9:00 AM Metformin HCl (Metformin HCl) 850 MG TABLET 1 Tablet ORAL TWICE DAILY Qty = 60 No Refills Instructions: . Comments: Last Taken: 02/26/18 Time: 8:00 AM Insulin Aspart, Recombinant (Novolog Flexpen) 100 UNIT/ML INSULN.PEN 0 Inject into fatty tissue 3 TIMES DAILY BEFORE MEALS Qty = 5 No Refills Instructions: BLOOD SUGAR INSULIN. 80-150 4 UNITS 151-200 6 201-250 7 UNITS 251-300 8 301-350 9 UNITS 351-400 10 >400 11 UNITS Comments: Last Taken: 02/26/18 Time: 12:00 PM Insulin Detemir (Levemir Flextouch) 100 UNIT/ML (3 ML) INSULN.PEN 18 Units Inject into fatty tissue TWICE DAILY Qty = 5 No Refills Instructions: . Comments: Last Taken: 02/26/18 Time: 10:00 AM Pioglitazone HCl (Actos) 30 MG TABLET 1 Tablet ORAL DAILY Qty = 30 No Refills Instructions: . Comments: Last Taken: 02/26/18 Time: 9:00 AM
== END 2018-02-26 16:09 | disposition home health service (06) | DRG 638 ==
LOC: ERH 10:12 → CRI 12:04 → ERHI 12:04 → ENRESERV 12:56 → CRI 14:31 → ENTRNSPT 02-25 08:27 → EDTRNSPT 02-25 08:50 → EDTRNSPTSTS 02-25 08:50 → 2NA 02-25 09:03 → CMPTRNSPT 02-25 09:10 → 2NA 02-25 09:10 → ENPENDDIS 02-26 13:06 → ENTRNSPT 02-26 15:58 → CMPTRNSPT 02-26 16:06 → 2NA 02-26 16:09
PROVIDERS: Emergency Medicine; Internal Medicine; Internal Medicine Hematology & Oncology; Student in an Organized Health Care Education/Training Program
DX: E11.10 Type 2 diabetes mellitus with ketoacidosis without coma (principal); N17.9 Acute kidney failure, unspecified; E87.2 Acidosis; E66.2 Morbid (severe) obesity with alveolar hypoventilation; E86.0 Dehydration; J44.9 Chronic obstructive pulmonary disease, unspecified; I10 Essential (primary) hypertension; K21.9 Gastro-esophageal reflux disease without esophagitis; I25.10 Atherosclerotic heart disease of native coronary artery without angina pectoris; Z68.29 Body mass index [BMI] 29.0-29.9, adult; E55.9 Vitamin D deficiency, unspecified; K22.70 Barrett's esophagus without dysplasia; Z98.61 Coronary angioplasty status; F17.210 Nicotine dependence, cigarettes, uncomplicated; Z79.82 Long term (current) use of aspirin; Z79.51 Long term (current) use of inhaled steroids; E11.65 Type 2 diabetes mellitus with hyperglycemia
CPT/HCPCS: 2NAP; CCU; 36415; 71045; 81003; 82436; 87040; 93005; 93010; 93306; 96374; 96375; 97116-GO; 97161-GP; 97530-GO; 99291; J1644; J1815; J3490; J7042